=== PATIENT | female | born 1945 | race Caucasian/White ===

== ENCOUNTER → 2017-06-04 | Outpatient (CLI) | payer MEDICARE ==
[2015-12-20 11:30] VITALS: BP 91/45
[~2017-06-04] MED LIST: ATOR20TA PO; CALC500T30 PO; CANA100T PO; CHOL-5 PO; CLOP75TA57 PO; ESCITALOPRAM OX20 MG PO; FURO40TA4 PO; GLIP5TAB10 PO; LACT1CAP6 PO; LEVO50TA5 PO; LIRA0.6P2 SQ; METF-620 PO; OMEP20TA8 PO; SAXA1TBM3 PO; THYR120T PO; ZINC30CA PO
[2017-06-04 11:34] LABS: BILIRUBIN,URINE NEGATIVE (NEG); GLUCOSE,URINE NEGATIVE (NEG); NITRITE,URINE NEGATIVE (NEG); PROTEIN,URINE 30 mg/dL (NEG-TRACE); UROBILINOGEN,URINE 0.2 mg/dL (0.2 mg/dL)
--- NOTE | 2017-06-04 11:48 | EKG ---
[facility] [address] [place] [address] Test Date: 2017-06-04 Test Time: 11:51:00 Pat Name: DENI BURTON Department: Room: Gender: F Commercial Administrator: DEVAN : 1945 Requested By: CYNTHIA HODGE Order Number: [id number] Reading MD: Measurements Intervals [place] Rate: 75 P: 90 HI: 212 QRS: 88 QRSD: 72 T: 65 QT: 436 QTc: 490 Interpretive Statements SINUS RHYTHM QRS(T) CONTOUR ABNORMALITY CONSIDER ANTEROLATERAL MYOCARDIAL DAMAGE CONSIDER INFERIOR MYOCARDIAL DAMAGE PROLONGED QT POSSIBLY ABNORMAL ECG RI6.01 Compared to ECG 12/20/2015 09:30:52 Prolonged QT interval now present First degree AV block no longer present Myocardial infarct finding no longer present
[2017-06-04 11:55] LABS: BACTERIA,URINE FEW /HPF (0-FEW); RBC,URINE 0 /HPF (0-2); SQUAMOUS EPITHELIAL CELL,UR MOD /LPF
[2017-06-04 12:36] LABS: BASO % 1 % (0-3); EOS % 3 % (0-3); HEMATOCRIT 35.4 % (36.0-47.0); HEMOGLOBIN 12.2 g/dL (12.0-15.5); LYMPH # 2.9 x10^3/uL (1.0-4.8); LYMPH % 31 % (24-48); MEAN CORPUSCULAR HEMOGLOBIN 31 pg (25-35); MEAN CORPUSCULAR HGB CONC 34 g/dL (31-37); MEAN CORPUSCULAR VOLUME 89 fL (79-100); MONO % 7 % (0-9); NEUT % 59 % (31-73); PLATELET COUNT 248 x10^3/uL (140-400); RED BLOOD COUNT 3.99 x10^6/uL (3.50-5.40); RED CELL DISTRIBUTION WIDTH 13.5 % (11.5-14.5); WHITE BLOOD COUNT 9.4 x10^3/uL (4.0-11.0)
[2017-06-04 12:42] LABS: INR 1.1 (0.8-1.1); PROTHROMBIN TIME PATIENT 13.2 SEC (11.7-14.0)
[2017-06-04 12:43] LABS: CALCIUM 8.8 mg/dL (8.5-10.1); CREATININE 0.8 mg/dL (0.6-1.0); GFR 70.7; POTASSIUM 3.5 mmol/L (3.5-5.1)
--- NOTE | 2017-06-04 13:28 | RAD ---
Indication preop. Anticipated orthopedic surgery later this month. Protocol study. PA and lateral views of the chest were obtained and are compared to an examination 01/19/2015. Heart size is unchanged. There is no gross congestive heart failure. There is no focal infiltrate. Significant pleural fluid is not seen. There is no pneumothorax. There has not been a significant change when compared to the previous exam. IMPRESSION: No acute or focal process seen in the chest. No significant change
== END | disposition home or self-care (01) ==
LOC: SURGPAT 10:53
PROVIDERS: ATTEND Orthopaedic Surgery
DX: Z01.818 Encounter for other preprocedural examination (principal); I44.0 Atrioventricular block, first degree; R94.31 Abnormal electrocardiogram [ECG] [EKG]
CPT/HCPCS: 36415; 71020; 80048; 81001; 82040; 85027; 85610; 85730; 87641; 93005

== ENCOUNTER → 2017-06-14 | Outpatient (CLI) | payer MEDICARE ==
[2015-12-20 11:30] VITALS: BP 91/45
[~2017-06-14] MED LIST changes: +REGADENOSON 0.4 MG/5 ML DISP.SYRIN. IV ONE
--- NOTE | 2017-06-14 10:59 | CARD ---
APPROVED REPORT EXAM: Two-dimensional and M-mode echocardiogram with Doppler and color Doppler. Other Information Quality : GoodHR: 80bpm Rhythm : NSR INDICATION Pre-Op Cardiac Disease: CAD RISK FACTORS Obesity Family History Diabetes 2D DIMENSIONS RVDd3.1 (2.9-3.5cm)Left Atrium(2D)2.4 (1.6-4.0cm) IVSd1.0 (0.7-1.1cm)Aortic Root(2D)2.3 (2.0-3.7cm) LVDd4.4 (3.9-5.9cm)LVOT Diameter2.1 (1.8-2.4cm) PWd1.0 (0.7-1.1cm)LVDs2.9 (2.5-4.0cm) FS (%) 34.4 %SV56.3 ml LVEF(%)63.7 (>50%) Aortic Valve AoV Peak Javi.197.5cm/sAoV VTI44.1cm AO Peak GR.15.6mmHgLVOT Peak Javi.109.4cm/s AO Mean GR.8mmHgAVA (VMAX)1.88cm2 Mitral Valve MV E Dygrsfvk43.3cm/sMV E Peak Gr.5mmHg MV DECEL QCMJ978piGY A Qqrcycag19.8cm/s MV E Mean Gr.2mmHgE/A Ratio0.8 MV A Piivavjv645fd Pulmonary Valve PV Peak Ncamgjiq864.4cm/s Tricuspid Valve TR P. Actjuvua862ol/sTR Peak Gr.10mmHg Pulmonary Vein S1 Voxaftrj67.5cm/sD2 Mnigatql32.3cm/s PVa qzewenod18uzyf LEFT VENTRICLE The left ventricle is normal size. There is normal left ventricular wall thickness. The left ventricu lar systolic function is normal. The Ejection Fraction is 65-70%. There is normal LV segmental wall m otion. Transmitral Doppler flow pattern is Grade I-abnormal relaxation pattern. RIGHT VENTRICLE The right ventricle is normal size. There is normal right ventricular wall thickness. The right ventr icular systolic function is normal. ATRIA The left atrium size is normal. The right atrium size is normal. The interatrial septum is intact wit h no evidence for an atrial septal defect or patent foramen ovale as noted on 2-D or Doppler imaging. AORTIC VALVE The aortic valve is not well visualized but appears moderately calcified and opens adequately. Dopple r and Color Flow revealed mild aortic regurgitation. There is no significant aortic valvular stenosis . MITRAL VALVE Mitral annular calcification is mild. The mitral valve leaflets are thickened. There is no evidence o f mitral valve prolapse. There is no mitral valve stenosis. Doppler and Color Flow revealed no mitral valve regurgitation noted. TRICUSPID VALVE The tricuspid valve is normal in structure and function. Doppler and Color Flow revealed trace tricus pid regurgitation. There is no tricuspid valve stenosis. GREAT VESSELS The aortic root is normal in size. The ascending aorta is normal in size. The pulmonary artery is nor mal. The IVC is normal in size and collapses >50% with inspiration. PERICARDIAL EFFUSION There is no evidence of significant pericardial effusion. Critical Notification Critical Value: No <Conclusion> The left ventricular systolic function is normal. The Ejection Fraction is 65-70%. There is normal LV segmental wall motion. Transmitral Doppler flow pattern is Grade I-abnormal relaxation pattern. Mild aortic regurgitation. Trace tricuspid regurgitation. There is no evidence of significant pericardial effusion.
--- NOTE | 2017-06-14 15:20 | RAD ---
APPROVED REPORT Test Type: Pharmacological Stress Nurse/Tech: Elysia Flowers R.N. Test Indications: pre-op for knee replacement Cardiac History: CAD, stent x1 Medications: See Electronic Medical Record Medical History: See Electronic Medical Record Resting ECG: SR w 1st degree AVB Resting Heart Rate: 83 bpm Resting Blood Pressure: 116/61mmHg Pretest Chest Pain: No chest pain Nurse/Tech Notes S1S2, lungs CTA Consent: The procedure was explained to the patient in lay terms. Informed consent was witnessed. Reji eout was entered into [employer]. History and Stress Test performed by TYLER Santana Pharm. Details Pharmacologic stress testing was performed using 0.4mg per 5ml of regadenoson given intravenously ove r 7-10 seconds. Stress Symptoms dyspnea and queasy both of which resolved by the end of recovery period POST EXERCISE Reason for Termination: Infusion complete Max HR: 102 bpm Max Blood Pressure: 119/56mmHg Blood Pressure response to exercise: Normal blood pressure response during stress. Heart Rate response to exercise: wnl Chest Pain: No. Arrhythmia: No. ST Change: No. INTERPRETATION Stress EKG Conclusion: Baseline EKG showed sinus rhythm. No ischemic changes at peak stress. No arr hythmias. Imaging Protocol IMAGE PROTOCOL: Rest Tc-99m/stress Tc-99m 1 day Rest: Stress: Viability: Radiopharm.Tc99m SdhcvzirrMr84x Sestamibi Mhyx25oFb 34mCi Duration 17min. 12min. Img Date 06/14/2017 06/14/2017 Inj-Img Ewrk40biy. 60min. Rest Admin Site:IV - Right AntecubitalAdministrator:RT Brent (R)(N) Stress Admin Site: IV - Right AntecubitalAdministrator: TYLER Santana STRESS DATA End Diast. Vol.39.0mlAv. Heart Rate94.0bpm End Syst. Vol.2.0mlCO Index BSA0.0L/min Myocardial Mass88.0gEject. Addkwfzs95.0% Stress Rates Pk. Fill Rate2.49EDV/secLVtime Pk. Fill 200.03msec Pk. Empty Rate7.38ESV/secLVtime Pk. Lsayq426.65msec 1/3 Pk. Fill0.24EDV/sec Stress Scores Regional WT1.00Summed WT5.00 Regional WM0.00Summed WM0.00 Study quality was good. Left Ventricular size was Normal at Rest and Stress. Lung uptake was Normal. Left Ventricular ejection fraction is >80%. The rest and stress images show normal perfusion, normal contraction and thickening. LV Perf. Quant 17 Seg. SSS1.00 17 Seg. SRS0.00 17 Seg. SDS1.00 Stress Defect Extent (% LAD)0.00Rest Defect Extent (% LAD)0.00Rev. Defect Extent (% LAD)0.00 Stress Defect Extent (% LCX) 0.00Rest Defect Extent (% LCX)0.00Rev. Defect Extent (% LCX)0.00 Stress Defect Extent (% RCA)0.00Rest Defect Extent (% RCA)0.00Rev. Defect Extent (% RCA)0.00 Stress Defect Extent (% TERESA)0.00Rest Defect Extent (% TERESA)0.00Rev. Defect Extent (% TERESA)0.00 Conclusion 1. Regadenoson cardioisotope stress test did not show any evidence of ischemia or infarct. 2. Normal left ventricular systolic function with ejection fraction calculated at >80%. 3. Low risk for cardiac events.
== END | disposition home or self-care (01) ==
LOC: ECHO 07:48
PROVIDERS: ATTEND Internal Medicine Cardiovascular Disease
DX: Z01.818 Encounter for other preprocedural examination (principal); I25.10 Atherosclerotic heart disease of native coronary artery without angina pectoris; I35.1 Nonrheumatic aortic (valve) insufficiency
CPT/HCPCS: 78452; 93017; 93306; 96374; 96375; 96376; A9500; J2785

== ENCOUNTER 2017-06-26 07:00 | Inpatient (IN) | payer MEDICARE ==
--- NOTE | 2017-06-25 11:55 | PDOC1 ---
History and Physical Date of Admission Date of Admission DATE: 06/26/17 Identification/Chief Complaint Chief Complaint left knee osteoarthritis pain Problems: Source Source: Chart review History of Present Illness History of Present Illness The patient is a 72 year old female who has left knee pain. She had a right total knee arthroplasty on 06.17.13. She states that this is doing very well. However, the patient states that her left knee is very painful and gives out at random times. She had a left total knee arthroplasty scheduled in 2014 but had to cancel due to high blood sugar. This is now well controlled per a recent A1C. She states that she has to buy hypoallergenic earrings, as her ears swell with normal earrings. Past Medical History Cardiovascular: CHF Endocrine: Diabetes Past Surgical History Past Surgical History: Total knee replacement (right - 2013) Family History Family History: Diabetes Social History Smoke: No ALCOHOL: none Drugs: None Current Medications Current Medications Active Scripts Active Reported Calcium (Calcium Carbonate) 500 Mg Tablet 500 Mg PO Zinc (Zinc Gluconate-Zinc Picolinate) 30 Mg Capsule 30 Mg PO Victoza 3-Jarvis (Liraglutide) 0.6 Mg/0.1 Ml Pen.injctr 0.6 Mg SQ DAILY Invokana (Canagliflozin) 100 Mg Tablet 100 Mg PO DAILY Levothyroxine Sodium 50 Mcg Tablet 1 Tab PO DAILY Kombiglyze Xr 5-1,000 Mg Tab (Saxagliptin Hcl/Metformin Hcl) 1 Each Tbmp.24hr 1 Tab PO DAILYWSUP next dose 12/23 Plavix (Clopidogrel Bisulfate) 75 Mg Tablet 75 Mg PO DAILY Vitamin D3 (Cholecalciferol (Vitamin D3)) 10,000 Unit Tablet 5,000 Unit PO DAILY Glipizide 5 Mg Tablet 1 Tab PO DAILY Metformin Hcl 1,000 Mg Tablet 1,000 Mg PO BID next dose Sun evening dose 12/22 Allergies Allergies: Coded Allergies: Sulfa (Sulfonamide Antibiotics) (Verified Allergy, Intermediate, Hives, ) itching Physical Exam General: Alert, Oriented X3, Cooperative, No acute distress HEENT: Atraumatic, EOMI Lungs: Normal air movement Heart: RRR Abdomen: Soft Extremities: No clubbing, No cyanosis, Normal pulses, No tenderness/swelling ( LEFT KNEE: mildly antalgic gait. No masses. No detectable effusion. Tenderness on the medial and lateral joint lines. Range of motion is 3-115 degrees. There is crepitus with range of motion, and pain at the extremes of motion. The knee is stable to varus and valgus stress without subluxation or laxity. Muscle strength is normal (5/5) for quadriceps and hamstrings, and muscle tone is normal. The skin is normal with no scars, rashes, lesions or ulcers. Light touch sensation is intact. No edema and no varicosities. Dorsalis pedis pulse is intact and capillary refill is normalRIGHT KNEE: shows normal alignment, no masses and no effusion. No tenderness to palpation. Range of motion is 0-120 degrees, with typical total knee crepitus but no pain at the extremes of motion. The knee is stable to varus and valgus stress without subluxation or laxity. Muscle strength is normal (5/5) for quadriceps and hamstrings, and muscle tone is normal. The extensor mechanism is intact. The skin shows a well- healed midline scar from total knee arthroplasty. No drainage lesions or ulcers. Light touch sensation is intact. No edema and no varicosities. Dorsalis pedis pulse is intact and capillary refill is normal.) Skin: No rashes, No breakdown, No significant lesion Neuro: Normal speech, Sensation intact Psych/Mental Status: Mental status NL, Mood NL Images Images IMAGING REPORT Joint survey, hips knees and ankles Clinical information: Preoperative for total knee arthroplasty Comparison: None. Findings Bones: The angle between the right hip-ankle mechanical axis and the femoral shaft is 5. The angle between the left hip-ankle mechanical axis and the femoral shaft is 5 . The mechanical axis crosses in the center of the right prosthetic knee, indicating normal mechanical alignment. The mechanical axis crosses in the center to slightly medial in the left knee, indicating trace varus mechanical alignment of the left knee. Joints: There is narrowing of the left knee joint medially. The right knee joint shows a total knee arthroplasty in good position. The hips and ankles show minimal degenerative changes. Soft tissue: Normal. Impression: Trace varus alignment of the left knee. The difference between the mechanical axis and femoral shaft anatomic axis is 5 bilaterally. Dictated and Signed Using Voice Recognition Software Chadwick Rubi MD VTE Prophylaxis Ordered VTE Prophylaxis Devices: Yes VTE Pharmacological Prophylaxi: Yes Assessment/Plan Assessment/Plan Left knee osteoarthritis pain. Dr. Rubi discussed the potential risks of infection, neurovascular injury, bleeding, blood clots, need for revision surgery, or other potential surgical or anesthetic complications. She states that she does have a metal allergy. She would like to go forward with a left total knee arthroplasty. She will followup 10-14 days after surgery. RODDY FARRELL Jun 25, 2017 11:55
[2017-06-26] VITALS (8 sets, daily range): BP systolic 77–117; BP diastolic 39–71
[~2017-06-26] VITALS: Ht 149.9 cm; Wt 75.3 kg
[~2017-06-26 07:00] MED LIST changes: +BACITRACIN 50,000 UNIT in IV NORMAL SALINE 1000ML BAG 1,000 ML IRR ONE; +HYDROcodone/APAP 7.5/325MG 1 TAB TABLET PO PRN; +HYDROmorphone 2 MG/ML VIAL IV PRN; +IV RINGERS,LACTATED 1000ML 1,000 ML IV SCH; +LIDOCAINE 1% 1 ML SYRINGE. ID PRN; +MELOXICAM 7.5 MG TABLET PO PRN; +MORPHINE SULFATE 2 MG/ML DISP.SYRIN. IV PRN; +ONDANSETRON PF 4 MG/2 ML VIAL. IV PRN; +PROCHLORPERAZINE 10 MG/2 ML VIAL. IV PRN; -REGADENOSON 0.4 MG/5 ML DISP.SYRIN. IV ONE; +TRANEXAMIC ACID 1,000 MG in IV NS 50ML -- 1ST BAG INJ ONE; +fentaNYL PF VIAL 100 MCG/2 ML VIAL IV PRN
[2017-06-26] MEDS ORDERED: TRANEXAMIC ACID 1,000 MG in IV NS 50ML -- 2ND BAG INJ ONE (08:00)
[2017-06-26] MEDS ORDERED: fentaNYL PF VIAL 250 MCG/5 ML VIAL ONE (08:51)
[2017-06-26] MEDS ORDERED: PROPOFOL 20 ML IV ONE (08:52)
[2017-06-26] MEDS ORDERED: ONDANSETRON PF 4 MG/2 ML VIAL. ONE (08:52)
[2017-06-26] MEDS ORDERED: LIDOCAINE 2% PF Vial for OR 5 ML VIAL. ONE (08:52)
[2017-06-26] MEDS ORDERED: SEVOFLURANE > 120 MINUTES. IH ONE (08:52)
[2017-06-26] MEDS ORDERED: DEXAMETHASONE SOD PHOS 20 MG/5 ML VIAL. ONE (08:52)
[2017-06-26] MEDS ORDERED: VANCOMYCIN 1 GM VIAL. ONE (09:00)
[2017-06-26] MEDS ORDERED: LABETALOL 20 MG/4 ML DISP.SYRIN. ONE (10:21)
[2017-06-26] MEDS ORDERED: PROCHLORPERAZINE 10 MG/2 ML VIAL. ONE (11:51)
[2017-06-26] MEDS ORDERED: fentaNYL PF VIAL 100 MCG/2 ML VIAL ONE (11:51)
--- NOTE | 2017-06-26 12:07 | PDOC4 ---
Operative Note Operative Note Date of Procedure: June 26, 2017 Pre-Op Diagnosis: Osteoarthritis left knee Post-Op Diagnosis: Osteoarthritis left knee Procedure: left total knee arthroplasty Surgeon: Cynthia Rubi MD Facer Operator: Chrissy Dale PA-C, Jan Reid PA-C Anesthesia: General EBL: 100 mL Specimens Obtained: left knee bone and soft tissue Complications: none Implant Company: [employer] Drains: Hemovac plus pain catheter Tourniquet time: 54 Minutes Tourniquet Pressure: 350 mm Hg Indications for Procedure: Arthritis pain unrelieved by nonoperative management. Findings: moderate osteoarthritis with full thickness cartilage loss at the medial and patellofemoral joints. Implants used: Size 2 left bicruciate stabilized Journey II BCS cobalt chrome femoral component, size 2 left Journey nonporous tibial baseplate, size 1 -2 10 mm left Journey II BCS XLPE articular insert, standard 23 mm Journey BCS Biconvex patellar component Procedure in Detail: The patient was identified in the preoperative holding area, and the correct left lower extremity was marked by me. The patient was taken to the operating room where the patient was anesthetized by the Department of Anesthesia. Preoperative antibiotics were given intravenously. Tranexamic acid 1 g was given intravenously for intraoperative hemostasis. A "time-out" procedure was performed. The patient was positioned supine on the operative table with a tourniquet on the upper left thigh. The left lower limb was thoroughly prepped and draped in sterile fashion. An impervious stockinet and adhesive drape were used such that the skin was entirely covered. An Em leg damian was used. The operating team wore personal exhaust-ventilated hoods. The tourniquet was inflated to 350 Hg. A midline skin incision was made with a scalpel using the patella and tibial tubercle as landmarks. Electrocautery was used for hemostasis. My orthodontist assistant used rake retractors. A medial parapatellar arthrotomy incision was used with extension into the distal quadriceps tendon. The patella was retracted laterally and Hohmann retractors were now used by my orthodontist assistant. Excess synovium, the menisci, and the cruciate ligaments were resected sharply. The patella was assessed and excess synovium and osteophytes around the patellar articulation were removed. The patella was measured with a caliper, and then reamed for a biconvex patella insert. Periarticular injection was used in the suprapatellar pouch and distal quadriceps muscle. Whitesides's line was assessed on the femur. An intra-medullary 5 degree cutting guide was pinned to the femur, and a distal femoral cut was made with an oscillating saw. No additional distal femoral resection was required.My orthodontist assistant held Hohmann retractors and an [facility] retractor to protect the medial and lateral collateral ligaments, the patellar tendon, the skin and the other soft tissues. An anterior referencing guide was applied with external rotation of 3 to match Whitesides line. A 5-in-1 Journey II cutting guide was then applied and pinned to the femur. The posterior, anterior, and all chamfer cuts were made with the oscillating saw. An extramedullary guide was pinned to the tibia and rotational alignment and the planned resection thickness assessed. An external alignment yadi was used to verify the planned cut in the varus-valgus plane and regarding posterior slope referencing the tibial tubercle, the tibial shaft, the ankle joint, and the second metatarsal. The upper tibia was cut made with an oscillating saw. My orthodontist assistant held Hohmann retractors and a posterior cruciate ligament retractor to protect the medial and lateral collateral ligaments, the patellar tendon, the skin, the peroneal nerve and the other soft tissues. The upper tibia was sized with a trial baseplate. The posterior compartment was cleared of osteophytes and loose bodies, and posterior capsule released. Shanel-articular injection was used in the posterior compartment. The box cut for a posterior stabilized component was made. A preliminary reduction was performed with a trial femur, trial tibial baseplate and trial polyethylene. Soft-tissue balancing was now performed, and extension and rotation of the alignments was checked using a guide yadi in the tibial trial and a guide pin in the femur. No additional releases were required. The stability was assessed using different thicknesses of tibial articular surface to find satisfactory stability and good range of motion. The rotation of the tibial component was marked on the upper tibia. Final trial reduction was now performed verifying patella tracking and tibiofemoral stability and alignment. The tibia preparation was completed with a drill, saw, and fin punch at the previously noted rotation. The final implants were verified and opened. Outer gloves were changed by the operating team. The bone cuts were washed thoroughly with the Inside Secure InterPulse device and dried. Two packages of Berry + Nephew Rally HV bone cement were mixed in powdered form with 1 gm of Vancomycin , and then vacuum-mixed with the monomer, and placed into a cement gun. The cut surfaces of the bone were thoroughly dried with Jacobs-tip suction and with laparotomy sponges for cement interdigitation. The final components were cemented into place. The knee was kept at full extension while the cement hardened, and excess cement was removed. Tranexamic acid 1 g was redosed intravenously for additional intraoperative hemostasis. A final periarticular injection was used for pain relief. The tourniquet was released, and electrocautery was used for hemostasis. A final check of mfthh-yf-cqlrcc and stability was made, and the polyethylene implant final size was chosen. The polyethylene implant was secured to the tibial baseplate, and the knee was reduced a final time. Thorough irrigation was used. Hemovac and pain catheter were used.The arthrotomy was closed with interrupted trmmuv-er-dswem #1 PDS suture. The arthrotomy incision was then run with #1 STRATAFIX Symmetric PDS Plus Knotless suture. The subcutaneous tissues were closed with #2-0 Vicryl by my orthodontist assistant. The skin was approximated with pierce by my orthodontist assistant. A Prevena dressing was used. Needle and sponge counts were correct. CYNTHIA RUBI MD Jun 26, 2017 12:07
[2017-06-26] MEDS ORDERED: oxyCODONE/APAP 7.5/325 1 TAB TABLET PO PRN (12:15)
[2017-06-26] MEDS ORDERED: MORPHINE SULFATE 2 MG/ML DISP.SYRIN. IV PRN (12:15)
[2017-06-26] MEDS ORDERED: PROCHLORPERAZINE 10 MG/2 ML VIAL. IV PRN (12:15)
[2017-06-26] MEDS ORDERED: 0.9 % SODIUM CHLORIDE 10 ML DISP.SYRIN. IV PRN (12:15)
[2017-06-26] MEDS ORDERED: fentaNYL PF VIAL 100 MCG/2 ML VIAL IV PRN ×2 (12:15)
[2017-06-26] MEDS ORDERED: oxyCODONE/APAP 5/325 1 TAB TABLET PO PRN (12:15)
[2017-06-26] MEDS ORDERED: PROCHLORPERAZINE 5 MG TABLET. PO PRN (12:15)
[2017-06-26] MEDS ORDERED: CALCIUM CARBONATE 500 MG TAB.CHEW PO PRN (12:15)
[2017-06-26] MEDS ORDERED: DEXTROSE 50% 25 GM / 50ML DISP.SYRIN. IV PRN ×3 (12:15→21:30)
[2017-06-26] MEDS ORDERED: MORPHINE SULFATE 4 MG/ML DISP.SYRIN. IV PRN ×2 (12:15)
[2017-06-26] MEDS ORDERED: METOCLOPRAMIDE HCL 10 MG/2 ML VIAL. IV PRN (12:15)
[2017-06-26] MEDS ORDERED: traMADol 50 MG TABLET PO PRN (12:15)
[2017-06-26] MEDS ORDERED: HYDROcodone/APAP 10/325 1 TAB TABLET PO PRN (12:15)
[2017-06-26] MEDS ORDERED: ZOLPIDEM 5 MG TABLET. PO PRN (12:15)
[2017-06-26] MEDS ORDERED: MORPHINE SULFATE 10 MG/ML VIAL. IV PRN (12:15)
[2017-06-26] MEDS ORDERED: diphenhydrAMINE 50 MG/ML VIAL IV PRN (12:15)
[2017-06-26] MEDS ORDERED: ACETAMINOPHEN 325 MG TABLET. PO PRN (12:15)
--- NOTE | 2017-06-26 12:31 | RAD ---
2 view left knee radiographs 06/26/2017 Clinical history: Post left knee replacement. Portable AP and lateral digital radiographs of the left knee were obtained. The patient is status post left TKA. The prosthetic components are intact. A surgical drain is noted in place. Impression: Status post left TKA. No acute osseous abnormality is seen.
[2017-06-26] MEDS ORDERED: INSULIN ASPART 100 UNIT/ML 10ML VIAL. SQ ONE ×2 (12:42→12:45)
[2017-06-26] MEDS: FERROUS SULFATE 325 MG TABLET. PO SCH (18:26)
[2017-06-26] MEDS: IV DEXTROSE 5 %-0.45 % NACL 1,000 ML IV SCH (19:53)
[2017-06-26] MEDS: HYDROcodone/APAP 7.5/325MG 1 TAB TABLET PO PRN (20:51)
[2017-06-26] MEDS: ASPIRIN ENTERIC COATED 325 MG TABLET.DR. PO SCH (20:51)
[2017-06-26] MEDS: CELECOXIB 200 MG CAPSULE. PO SCH (20:54)
[2017-06-26] MEDS ORDERED: INSULIN DETEMIR 300 UNITS/3 ML INSULN.PEN. SQ SCH (21:00)
[2017-06-26] MEDS ORDERED: INSULIN REGULAR VIAL 150 UNIT in 0.9 % SODIUM CHLORIDE 150ML 150 ML IV PRN (21:15)
[2017-06-26] MEDS: INSULIN DETEMIR 300 UNITS/3 ML INSULN.PEN. SQ SCH (21:25)
--- NOTE | 2017-06-27 00:24 | ACF ---
Admission Forms Criteria PAIN MANAGEMENT GR Clinical Indications for Admission to Inpatient Care (Place 'X' for any and all applicable criteria): Hospital admission is needed for appropriate care of the patient because of 1 or more of the following are present (1)(2)(3)(4)(5): [ ]I. Severe pain requiring acute inpatient management as indicated by 1 or more of the following (2)(5)(10): [ ]a) Continuous or frequent (eg, every 2 to 4 hours) parenteral analgesics required [A] [ ]b) Necessity (ie, alternative approaches not effective) for analgesic regimen that can only be performed or initiated in inpatient setting [X]II. Pain causing debilitation to the point of inability to function or be supported at any other level of care [ ]III. Severe side effects from pain medications as indicated by ANY ONE of the following (12)(13)(14)(15): [ ]a) Uncontrollable seizures [ ]b) Cardiac arrhythmias of immediate concern [ ]c) Dehydration that is severe or persistent [ ]d) Vomiting that is severe or persistent [ ]e) Altered mental status that is severe or persistent [ ]f) Obstipation with inadequate GI function to maintain nutrition The original [employer] content created by [employer] has been revised. The portions of the content which have been revised are identified through the use of italic text or in bold, and [facility] has neither reviewed nor approved the modified material. All other unmodified content is copyright [employer]. Please see references footnoted in the original [employer] edition 2016 Admission Criteria Met?: Yes REBECCA SHELTON Jun 27, 2017 00:24
[2017-06-27] MEDS: HYDROcodone/APAP 7.5/325MG 1 TAB TABLET PO PRN (01:38)
[2017-06-27 06:00] VITALS: BP 95/51
[2017-06-27] MEDS ORDERED: MAGNESIUM HYDROXIDE 2,400 MG/30 ML ORAL.SUSP. PO PRN (06:00)
[2017-06-27] MEDS: LEVOTHYROXINE 50 MCG TABLET PO SCH (06:41)
[2017-06-27] MEDS: FERROUS SULFATE 325 MG TABLET. PO SCH ×2 (08:00→17:45)
[2017-06-27] MEDS: ASPIRIN ENTERIC COATED 325 MG TABLET.DR. PO SCH ×2 (08:54→21:30)
[2017-06-27] MEDS: LINAGLIPTIN 5 MG TABLET PO SCH (08:54)
[2017-06-27] MEDS: MULTIVITAMIN with MINERAL TABLET. PO SCH (08:54)
[2017-06-27] MEDS: CALCIUM CARBONATE 500 MG TABLET PO SCH (08:54)
[2017-06-27] MEDS: CELECOXIB 200 MG CAPSULE. PO SCH ×2 (08:54→21:00)
[2017-06-27] MEDS: SENNOSIDES/DOCUSATE 8.6/50MG TABLET. PO SCH (08:54)
[2017-06-27] MEDS: glipiZIDE 5 MG TABLET PO SCH (08:54)
[2017-06-27] MEDS: CHOLECALCIFEROL (VITAMIN D3) 5,000 UNIT CAPSULE PO SCH (08:55)
[2017-06-27] MEDS: traMADol 50 MG TABLET PO PRN ×3 (08:58→21:31)
[2017-06-27] MEDS ORDERED: NON FORMULARY ITEM (Liraglutide (Victoza 3-Pak) 0.6 MG) SQ SCH (09:00)
[2017-06-27] MEDS ORDERED: NON FORMULARY ITEM (Canagliflozin (Invokana) 100 MG) PO SCH (09:00)
[2017-06-27] MEDS: INSULIN ASPART 300 UNITS/3 ML INSULN.PEN SQ SCH ×3 (09:15→17:00)
[2017-06-27 09:34] LABS: HEMATOCRIT 29.1 % (36.0-47.0); RED BLOOD COUNT 3.21 x10^6/uL (3.50-5.40); RED CELL DISTRIBUTION WIDTH 13.2 % (11.5-14.5); WHITE BLOOD COUNT 12.1 x10^3/uL (4.0-11.0)
--- NOTE | 2017-06-27 09:41 | PDOC ---
PROGRESS NOTES Subjective Subjective No complaints. Pain is controlled. Objective Vital Signs Vital Signs Date Time Temp Pulse Resp B/P (MAP) Pulse Ox O2 Delivery O2 Flow Rate FiO2 06/27/17 08:58 Room Air 06/27/17 06:00 98.0 96 20 95/51 (66) 92 2.0 98.0 Physical Exam Dressing dry. Pain catheter and Hemovac in place. Good dorsiflexion and plantarflexion of the foot with no evidence of neurovascular injury or DVT. Calves are soft and non-tender. Negative Homans. Peripheral pulses and light touch sensation intact. Labs Laboratory Tests Test 06/26/17 07:22 06/26/17 07:30 06/26/17 12:12 06/26/17 17:06 Glucose (Fingerstick) 204 mg/dL (70-99) 271 mg/dL (70-99) 341 mg/dL (70-99) Erythrocyte Sedimentation Rate 8 (0-25) Test 06/26/17 20:47 06/27/17 06:38 Glucose (Fingerstick) 423 mg/dL (70-99) 191 mg/dL (70-99) Laboratory Tests Test 06/26/17 12:12 06/26/17 17:06 06/26/17 20:47 06/27/17 06:38 Glucose (Fingerstick) 271 mg/dL (70-99) 341 mg/dL (70-99) 423 mg/dL (70-99) 191 mg/dL (70-99) Imaging Postoperative x-rays reviewed by me, showing satisfactory total knee replacement , with no apparent complications. Assessment Assessment POD #1 left TKA Problems: Plan Plan of Care Continue POC including DVT prophylaxis and physical therapy. Plan for discharge to home on Sunday with outpatient PT at [facility] in [place]. RODDY FARRELL Jun 27, 2017 09:41
[2017-06-27] MEDS: IV DEXTROSE 5 %-0.45 % NACL 1,000 ML IV SCH ×3 (10:00→20:00)
[2017-06-27 11:15] VITALS: BP 106/56
[2017-06-27] MEDS ORDERED: BISACODYL 10 MG SUPP.RECT. PR PRN (16:00)
[2017-06-27] MEDS: CLOPIDOGREL BISULFATE 75 MG TABLET PO SCH (17:45)
[2017-06-27] MEDS ORDERED: GABA-586 PO (18:12)
[2017-06-27] MEDS ORDERED: LEXAPRO20 MG PO (18:12)
[2017-06-27] MEDS ORDERED: CRESTOR40 MG PO (18:12)
[2017-06-27 18:30] VITALS: BP 118/54
[2017-06-28] MEDS: traMADol 50 MG TABLET PO PRN (02:37)
[2017-06-28 06:00] VITALS: BP 109/56
[2017-06-28 06:04] LABS: HEMATOCRIT 30.3 % (36.0-47.0); HEMOGLOBIN 10.1 g/dL (12.0-15.5)
[2017-06-28] MEDS: LEVOTHYROXINE 50 MCG TABLET PO SCH (06:29)
[2017-06-28] MEDS: INSULIN ASPART 300 UNITS/3 ML INSULN.PEN SQ SCH ×3 (08:00→17:00)
[2017-06-28] MEDS: CHOLECALCIFEROL (VITAMIN D3) 5,000 UNIT CAPSULE PO SCH (08:39)
[2017-06-28] MEDS: FERROUS SULFATE 325 MG TABLET. PO SCH ×2 (08:39→17:10)
[2017-06-28] MEDS: CALCIUM CARBONATE 500 MG TABLET PO SCH (08:39)
[2017-06-28] MEDS: ASPIRIN ENTERIC COATED 325 MG TABLET.DR. PO SCH ×2 (08:39→21:00)
[2017-06-28] MEDS: glipiZIDE 5 MG TABLET PO SCH (08:39)
[2017-06-28] MEDS: MULTIVITAMIN with MINERAL TABLET. PO SCH (08:39)
[2017-06-28] MEDS: CLOPIDOGREL BISULFATE 75 MG TABLET PO SCH (08:40)
[2017-06-28] MEDS: SENNOSIDES/DOCUSATE 8.6/50MG TABLET. PO SCH (08:40)
[2017-06-28] MEDS: LINAGLIPTIN 5 MG TABLET PO SCH (08:40)
[2017-06-28] MEDS: HYDROcodone/APAP 7.5/325MG 1 TAB TABLET PO PRN ×2 (08:40→23:27)
--- NOTE | 2017-06-28 13:14 | PDOC ---
PROGRESS NOTES Subjective Subjective Doing well. Only mild pain increase from yesterday. Objective Vital Signs Vital Signs Date Time Temp Pulse Resp B/P (MAP) Pulse Ox O2 Delivery O2 Flow Rate FiO2 06/28/17 08:00 Room Air 06/28/17 06:00 98.0 88 18 109/56 (73) 90 98.0 06/27/17 06:00 2.0 Physical Exam Expected swelling. Pain catheter and Hemovac have been removed. Prevena intact, with with yellow light on canister. Spotty drainage from drain site. Calf soft and nontender with a negative Homans sign. Good dorsiflexion and plantarflexion with no evidence of neurovascular injury. Peripheral pulses and light touch sensation intact. Labs Laboratory Tests Test 06/26/17 17:06 06/26/17 20:47 06/27/17 06:38 06/27/17 09:10 Glucose (Fingerstick) 341 mg/dL (70-99) 423 mg/dL (70-99) 191 mg/dL (70-99) White Blood Count 12.1 x10^3/uL (4.0-11.0) Red Blood Count 3.21 x10^6/uL (3.50-5.40) Hemoglobin 10.0 g/dL (12.0-15.5) Hematocrit 29.1 % (36.0-47.0) Mean Corpuscular Volume 91 fL (79-100) Mean Corpuscular Hemoglobin 31 pg (25-35) Mean Corpuscular Hemoglobin Concent 34 g/dL (31-37) Red Cell Distribution Width 13.2 % (11.5-14.5) Platelet Count 220 x10^3/uL (140-400) Test 06/27/17 11:35 06/27/17 16:34 06/27/17 19:28 06/27/17 20:50 Glucose (Fingerstick) 169 mg/dL (70-99) 67 mg/dL (70-99) 81 mg/dL (70-99) 85 mg/dL (70-99) Test 06/28/17 05:35 06/28/17 06:33 06/28/17 11:40 Hemoglobin 10.1 g/dL (12.0-15.5) Hematocrit 30.3 % (36.0-47.0) Mean Corpuscular Hemoglobin Concent 33 g/dL (31-37) Glucose (Fingerstick) 121 mg/dL (70-99) 121 mg/dL (70-99) Laboratory Tests Test 06/27/17 16:34 06/27/17 19:28 06/27/17 20:50 06/28/17 05:35 Glucose (Fingerstick) 67 mg/dL (70-99) 81 mg/dL (70-99) 85 mg/dL (70-99) Hemoglobin 10.1 g/dL (12.0-15.5) Hematocrit 30.3 % (36.0-47.0) Mean Corpuscular Hemoglobin Concent 33 g/dL (31-37) Test 06/28/17 06:33 06/28/17 11:40 Glucose (Fingerstick) 121 mg/dL (70-99) 121 mg/dL (70-99) Assessment Assessment POD #2 TKA Problems: Plan Plan of Care MEAGHAN Farmer, has contacted wound care to change Prevena wound vac. Continue DVT prophylaxis and physical therapy. Planned discharge tomorrow. Office f/u in 10- 14 days. RODDY FARRELL Jun 28, 2017 13:14
--- NOTE | 2017-06-28 17:28 | PATHOLOGY ---
PATHOLOGY REPORT * * * * * * * * FINAL DIAGNOSIS: Segments of bone and soft tissue, left total knee arthroplasty: - Degenerative arthritis. (JPM:[email or web address]; 06/28/2017) REPORT ELECTRONICALLY SIGNED BY: Rohith Kaiser M.D. DATE/TIME: 06/28/2017 17:27 * * * * * * * * GROSS PATHOLOGY: Received in formalin labeled "Flory Charles, left knee bone and tissue," are multiple segments of bone, including tibial plateau, measuring 8.0 x 8.0 x 3.5 cm in aggregate dimensions admixed with soft tissue; meniscus is present. Eburnation of the articular surfaces is not grossly evident upon extensive sectioning. Sales Service Professional sections of bone and soft tissue are submitted in cassette A1, following decalcification. ([facility]; 06/27/2017) INITIAL CPT CODE(S): A; 60295, 07345 Professional services performed [place] [facility] [place] [address] Technical services performed by [facility] at [address] [place] [address]. SPECIMEN(S) RECEIVED: A.Left knee bone and tissue CLINICAL HISTORY: OA PATIENT: FLORY CHARLES /AGE: 5 1945 (Age: 72) PATIENT #: [id number] ALT CASE #: SPECIMEN COLLECTION DATE: 06/26/2017 SPECIMEN RECEIVED DATE: 06/26/2017 [facility] - [address] [place] [address] - PHONE: [phone] * * * END OF REPORT * * *
[2017-06-28 18:34] VITALS: BP 132/67
[2017-06-28] MEDS: INSULIN DETEMIR 300 UNITS/3 ML INSULN.PEN. SQ SCH (21:00)
[2017-06-29] MEDS: HYDROcodone/APAP 7.5/325MG 1 TAB TABLET PO PRN ×2 (03:29→12:24)
[2017-06-29 06:00] VITALS: BP 127/54
[2017-06-29 06:19] LABS: HEMATOCRIT 30.5 % (36.0-47.0); HEMOGLOBIN 10.1 g/dL (12.0-15.5)
[2017-06-29] MEDS: LEVOTHYROXINE 50 MCG TABLET PO SCH (07:06)
[2017-06-29] MEDS: INSULIN ASPART 300 UNITS/3 ML INSULN.PEN SQ SCH ×2 (08:00→11:39)
[2017-06-29] MEDS: FERROUS SULFATE 325 MG TABLET. PO SCH (08:08)
[2017-06-29] MEDS: CHOLECALCIFEROL (VITAMIN D3) 5,000 UNIT CAPSULE PO SCH (08:08)
[2017-06-29] MEDS: glipiZIDE 5 MG TABLET PO SCH (08:08)
[2017-06-29] MEDS: SENNOSIDES/DOCUSATE 8.6/50MG TABLET. PO SCH (08:08)
[2017-06-29] MEDS: CALCIUM CARBONATE 500 MG TABLET PO SCH (08:08)
[2017-06-29] MEDS: LINAGLIPTIN 5 MG TABLET PO SCH (08:08)
[2017-06-29] MEDS: CLOPIDOGREL BISULFATE 75 MG TABLET PO SCH (08:08)
[2017-06-29] MEDS: MULTIVITAMIN with MINERAL TABLET. PO SCH (08:08)
[2017-06-29] MEDS: ASPIRIN ENTERIC COATED 325 MG TABLET.DR. PO SCH (08:09)
--- NOTE | 2017-06-29 12:25 | PDOC ---
PROGRESS NOTES Subjective Subjective Doing well. Planning for discharge later today after PT. Objective Vital Signs Vital Signs Date Time Temp Pulse Resp B/P (MAP) Pulse Ox O2 Delivery O2 Flow Rate FiO2 06/29/17 06:00 97.0 93 21 127/54 (78) 92 Room Air 97.0 06/28/17 20:04 2.0 Physical Exam Expected swelling. Prevena wound vac intact with a green light on canister. Calf soft and nontender. Negative Homans. Good AROM ankle. Peripheral pulses and light touch sensation intact. Labs Laboratory Tests Test 06/27/17 16:34 06/27/17 19:28 06/27/17 20:50 06/28/17 05:35 Glucose (Fingerstick) 67 mg/dL (70-99) 81 mg/dL (70-99) 85 mg/dL (70-99) Hemoglobin 10.1 g/dL (12.0-15.5) Hematocrit 30.3 % (36.0-47.0) Mean Corpuscular Hemoglobin Concent 33 g/dL (31-37) Test 06/28/17 06:33 06/28/17 11:40 06/28/17 16:29 06/28/17 20:36 Glucose (Fingerstick) 121 mg/dL (70-99) 121 mg/dL (70-99) 176 mg/dL (70-99) 224 mg/dL (70-99) Test 06/29/17 04:25 06/29/17 06:59 06/29/17 11:15 Hemoglobin 10.1 g/dL (12.0-15.5) Hematocrit 30.5 % (36.0-47.0) Mean Corpuscular Hemoglobin Concent 33 g/dL (31-37) Glucose (Fingerstick) 88 mg/dL (70-99) 67 mg/dL (70-99) Laboratory Tests Test 06/28/17 16:29 06/28/17 20:36 06/29/17 04:25 06/29/17 06:59 Glucose (Fingerstick) 176 mg/dL (70-99) 224 mg/dL (70-99) 88 mg/dL (70-99) Hemoglobin 10.1 g/dL (12.0-15.5) Hematocrit 30.5 % (36.0-47.0) Mean Corpuscular Hemoglobin Concent 33 g/dL (31-37) Test 06/29/17 11:15 Glucose (Fingerstick) 67 mg/dL (70-99) Assessment Assessment POD 3 TKA Problems: Plan Plan of Care Discharge later today, to home. Continue DVT prophylaxis and physical therapy. F/U 10-14 days. RODDY FARRELL Jun 29, 2017 12:25
--- NOTE | 2017-06-29 12:28 | PDOC3 ---
Discharge Summary Visit Information Date of Admission: Jun 26, 2017 Date of Discharge: Jun 29, 2017 Admitting Diagnosis: left knee osteoarthritis pain Brief Hospital Course Allergies Allergies Coded Allergies Type Severity Reaction Last Updated Verified Sulfa (Sulfonamide Antibiotics) Allergy Intermediate Hives 01/19/15 Yes Vital Signs Vital Signs Date Time Temp Pulse Resp B/P (MAP) Pulse Ox O2 Delivery O2 Flow Rate FiO2 06/29/17 06:00 97.0 93 21 127/54 (78) 92 Room Air 97.0 06/28/17 20:04 2.0 Lab Results Laboratory Tests Test 06/27/17 16:34 06/27/17 19:28 06/27/17 20:50 06/28/17 05:35 Glucose (Fingerstick) 67 mg/dL (70-99) 81 mg/dL (70-99) 85 mg/dL (70-99) Hemoglobin 10.1 g/dL (12.0-15.5) Hematocrit 30.3 % (36.0-47.0) Mean Corpuscular Hemoglobin Concent 33 g/dL (31-37) Test 06/28/17 06:33 06/28/17 11:40 06/28/17 16:29 06/28/17 20:36 Glucose (Fingerstick) 121 mg/dL (70-99) 121 mg/dL (70-99) 176 mg/dL (70-99) 224 mg/dL (70-99) Test 06/29/17 04:25 06/29/17 06:59 06/29/17 11:15 Hemoglobin 10.1 g/dL (12.0-15.5) Hematocrit 30.5 % (36.0-47.0) Mean Corpuscular Hemoglobin Concent 33 g/dL (31-37) Glucose (Fingerstick) 88 mg/dL (70-99) 67 mg/dL (70-99) Laboratory Tests Test 06/28/17 16:29 06/28/17 20:36 06/29/17 04:25 06/29/17 06:59 Glucose (Fingerstick) 176 mg/dL (70-99) 224 mg/dL (70-99) 88 mg/dL (70-99) Hemoglobin 10.1 g/dL (12.0-15.5) Hematocrit 30.5 % (36.0-47.0) Mean Corpuscular Hemoglobin Concent 33 g/dL (31-37) Test 06/29/17 11:15 Glucose (Fingerstick) 67 mg/dL (70-99) Brief Hospital Course 72 year old female who presented with knee osteoarthritis, for elective total knee arthroplasty. The patient underwent total knee arthroplasty under general anesthesia the day of admission. Perioperative antibiotics and DVT prophylaxis were used. Postoperatively physical therapy and case management were consulted. The patient progressed and is stable for discharge. Discharge Information Condition at Discharge: Stable Follow Up: Weeks (2) Disposition/Orders: D/C to Home Scheduled Cholecalciferol (Vitamin D3) (Vitamin D3), 5,000 UNIT PO DAILY, (Reported) Clopidogrel Bisulfate (Plavix), 75 MG PO DAILY, (Reported) Escitalopram Oxalate (Lexapro), 20 MG PO DAILY, (Reported) Gabapentin (Gabapentin), 300 MG PO TID, (Reported) Glipizide (Glipizide), 1 TAB PO DAILY, (Reported) Levothyroxine Sodium (Levothyroxine Sodium), 1 TAB PO DAILY, (Reported) Metformin Hcl (Metformin Hcl), 1,000 MG PO BID, (Reported) Rosuvastatin Calcium (Crestor), 40 MG PO HS, (Reported) Miscellaneous Medications Calcium Carbonate (Calcium), 500 MG PO, (Reported) Zinc Gluconate-Zinc Picolinate (Zinc), 30 MG PO, (Reported) Discontinued Medications Canagliflozin (Invokana), 100 MG PO DAILY, (Reported) Liraglutide (Victoza 3-Jarvis), 0.6 MG SQ DAILY, (Reported) Saxagliptin Hcl/Metformin Hcl (Kombiglyze Xr 5-1,000 Mg Tab), 1 TAB PO DAILYWSUP , (Reported) Patient Instructions Patient Instructions Patient Instructions Continue to WBAT with walker. Keep dressing dry and intact. F/U with [facility] in 10-14 days. Call for appointment. Physical therapy for TKA Continue DVT prophylaxis with ASA 325mg twice daily. RODDY FARRELL Jun 29, 2017 12:28
[2017-06-29 14:30] VITALS: BP 124/64
== END 2017-06-29 16:28 | disposition home or self-care (01) | DRG 470 ==
LOC: OPSVCIP 07:00 → 4 SOUTHEST 13:15
PROVIDERS: ADMIT Orthopaedic Surgery; ATTEND Orthopaedic Surgery
PROC: 0SRD0J9 Replacement of Left Knee Joint with Synthetic Substitute, Cemented, Open Approach (ICD-10-PCS; principal; 2017-06-26 09:10)
DX: M17.12 Unilateral primary osteoarthritis, left knee (principal); I50.9 Heart failure, unspecified; E11.9 Type 2 diabetes mellitus without complications; Z96.651 Presence of right artificial knee joint; Z88.2 Allergy status to sulfonamides; Z83.3 Family history of diabetes mellitus
CPT/HCPCS: 36415; 73560; 82962; 85014; 85018; 85027; 85651; 86850; 86900; 86901; 88305; 88311; J0171; J0690; J1100; J1815; J1885; J2270; J2405; J2704; J2795; J3010; J3370; J3490; J7030; J7120; 97116; 97150; 97530; 97535; C1769; J2001

== ENCOUNTER 2017-07-25 11:07 | Inpatient (IN) | payer MEDICARE ==
[~2017-07-25] VITALS: Ht 149.9 cm; Wt 69.4 kg
[~2017-07-25 11:07] MED LIST changes: -BACITRACIN 50,000 UNIT in IV NORMAL SALINE 1000ML BAG 1,000 ML IRR ONE; +CRESTOR40 MG PO; +GABA-586 PO; -HYDROcodone/APAP 7.5/325MG 1 TAB TABLET PO PRN; -HYDROmorphone 2 MG/ML VIAL IV PRN; -IV RINGERS,LACTATED 1000ML 1,000 ML IV SCH; +LEXAPRO20 MG PO; -LIDOCAINE 1% 1 ML SYRINGE. ID PRN; -MELOXICAM 7.5 MG TABLET PO PRN; -MORPHINE SULFATE 2 MG/ML DISP.SYRIN. IV PRN; -ONDANSETRON PF 4 MG/2 ML VIAL. IV PRN; -PROCHLORPERAZINE 10 MG/2 ML VIAL. IV PRN; -TRANEXAMIC ACID 1,000 MG in IV NS 50ML -- 1ST BAG INJ ONE; -fentaNYL PF VIAL 100 MCG/2 ML VIAL IV PRN
[2017-07-25] MEDS ORDERED: PIPERACILLIN/TAZOBACTAM 4.5 GM in IV NORMAL SALINE 100ML 100 ML IV ONE (12:00)
[2017-07-25] MEDS ORDERED: HYDROcodone/APAP 5/325MG 1 TAB TABLET PO ONE (12:00)
--- NOTE | 2017-07-25 12:25 | PHYS DOC ---
Past Medical History Past Medical History: Diabetes-Type II Past Surgical History: Knee Replacement Additional Past Surgical Histo: Lt femur Alcohol Use: None Drug Use: None Adult General Chief Complaint Chief Complaint: SUTURE/STAPLE REMOVAL [facility] HPI Patient is a 72 year old female with a history of diabetes presents to the ED complaining of left knee pain x 4 days. States she had a knee replacement surgery a week and a half ago. States she followed up with the nurses and Dr. Rubi's office for staple removal. States some of the pierce were removed but one was stuck in there. States since then the knee has gotten swollen and red. Describes the pain as sharp and rates the pain 8 out of 10. Denies fever, nausea /vomiting, chest pain, shortness of breath, dizziness, weakness, headache. Review of Systems Review of Systems Constitutional: Denies fever or chills [] Eyes: Denies change in visual acuity, redness, or eye pain [] HENT: Denies nasal congestion or sore throat [] Respiratory: Denies cough or shortness of breath [] Cardiovascular: No additional information not addressed in HPI [] GI: Denies abdominal pain, nausea, vomiting, bloody stools or diarrhea [] : Denies dysuria or hematuria [] Musculoskeletal: Denies back pain. Complains of knee pain. [] Integument: Denies rash or skin lesions [] Neurologic: Denies headache, focal weakness or sensory changes [] Endocrine: Denies polyuria or polydipsia [] Current Medications Current Medications Current Medications Medications (Trade) Dose Ordered Sig/Nico Start Time Stop Time Status Last Admin Dose Admin Acetaminophen/ Hydrocodone Bitart (Lortab 5/325) 1 tab 1X ONCE 07/25/17 12:00 07/25/17 12:01 DC 07/25/17 12:23 1 TAB Morphine Sulfate 2 mg 1X ONCE 07/25/17 13:45 07/25/17 13:47 DC 07/25/17 13:51 2 MG Piperacillin Sod/ Tazobactam Sod 4.5 gm/Sodium Chloride 100 ml @ 200 mls/hr 1X ONCE 07/25/17 12:00 07/25/17 12:29 DC 07/25/17 12:23 200 MLS/HR Potassium Chloride (Klor-Con) 40 meq 1X ONCE 07/25/17 13:45 07/25/17 13:47 DC 07/25/17 13:51 40 MEQ Allergies Allergies Allergies Coded Allergies Type Severity Reaction Last Updated Verified Sulfa (Sulfonamide Antibiotics) Allergy Intermediate Hives 01/19/15 Yes Physical Exam Physical Exam Constitutional: Well developed, well nourished, no acute distress, non-toxic appearance. [] HENT: Normocephalic, atraumatic, bilateral external ears normal, oropharynx moist, no oral exudates, nose normal. [] Eyes: PERRLA, EOMI, conjunctiva normal, no discharge. [] Neck: Normal range of motion, no tenderness, supple, no stridor. [] Cardiovascular:Heart rate regular rhythm, no murmur [] Lungs & Thorax: Bilateral breath sounds clear to auscultation [] Abdomen: Bowel sounds normal, soft, no tenderness, no masses, no pulsatile masses. [] Skin: Warm, dry, no erythema, no rash. [] Back: No tenderness, no CVA tenderness. [] Extremities: MILD LEFT KNEE TENDERNESS, ERYTHEMA AND WARMTH. MILD DRAINAGE FROM STAPLE SITE., no cyanosis, no clubbing, DECREASED ROM WITH FLEXION DUE TO PAIN, no edema. [] Neurologic: Alert and oriented X 3, normal motor function, normal sensory function, no focal deficits noted. [] Psychologic: Affect normal, judgement normal, mood normal. [] Current Patient Data Vital Signs Vital Signs Date Time Temp Pulse Resp B/P (MAP) Pulse Ox O2 Delivery O2 Flow Rate FiO2 07/25/17 13:51 20 95 Room Air 07/25/17 13:05 92 115/58 (77) 07/25/17 11:29 97.9 97.9 Lab Values Laboratory Tests Test 07/25/17 12:00 07/25/17 12:45 07/25/17 12:55 White Blood Count 11.3 x10^3/uL (4.0-11.0) H Red Blood Count 2.97 x10^6/uL (3.50-5.40) L Hemoglobin 8.5 g/dL (12.0-15.5) L Hematocrit 25.8 % (36.0-47.0) L Mean Corpuscular Volume 87 fL (79-100) Mean Corpuscular Hemoglobin 29 pg (25-35) Mean Corpuscular Hemoglobin Concent 33 g/dL (31-37) Red Cell Distribution Width 15.6 % (11.5-14.5) H Platelet Count 536 x10^3/uL (140-400) H Sodium Level 138 mmol/L (136-145) Potassium Level 3.0 mmol/L (3.5-5.1) L Chloride Level 97 mmol/L (98-107) L Carbon Dioxide Level 36 mmol/L (21-32) H Anion Gap 5 (6-14) L Blood Urea Nitrogen 10 mg/dL (7-20) Creatinine 0.8 mg/dL (0.6-1.0) Estimated GFR (Cockcroft-Gault) 70.7 BUN/Creatinine Ratio 13 (6-20) Glucose Level 57 mg/dL (70-99) L Calcium Level 9.4 mg/dL (8.5-10.1) Total Bilirubin 0.2 mg/dL (0.2-1.0) Aspartate Amino Transferase (AST) 32 U/L (15-37) Alanine Aminotransferase (ALT) 23 U/L (14-59) Alkaline Phosphatase 130 U/L (46-116) H Total Protein 7.3 g/dL (6.4-8.2) Albumin 2.0 g/dL (3.4-5.0) L Albumin/Globulin Ratio 0.4 (1.0-1.7) L Urine Collection Type U cath Urine Color Yellow Urine Clarity Clear Urine pH 7.5 Urine Specific [place] 1.020 Urine Protein 30 mg/dL (NEG-TRACE) Urine Glucose (UA) Negative mg/dL (NEG) Urine Ketones (Stick) Negative mg/dL (NEG) Urine Blood Negative (NEG) Urine Nitrite Negative (NEG) Urine Bilirubin Negative (NEG) Urine Urobilinogen Dipstick 1.0 mg/dL (0.2 mg/dL) Urine Leukocyte Esterase Trace (NEG) Urine RBC Rare /HPF (0-2) Urine WBC Rare /HPF (0-4) Urine Squamous Epithelial Cells Few /LPF Urine Bacteria Few /HPF (0-FEW) Urine Mucus Slight /LPF Laboratory Tests 07/25/17 12:00 Laboratory Tests 07/25/17 12:45 EKG EKG [] Radiology/Procedures Radiology/Procedures PROCEDURE: KNEE LEFT 3V Examination: 3 views of the left knee. History: History of medial knee swelling, infection Comparison: 07/06/2017 Findings: Total knee arthroplasty changes are again identified. Comminuted fracture of the distal femur along the superior margin of the femoral component of the knee prosthesis again identified. Plate and screw fixation of the distal femur fracture is identified. Mild soft tissue edema identified in the lateral aspect of the leg about the knee joint. There is a metallic clip or foreign body projecting in the soft tissue lateral to the femoral condyle. Impression: 1. Comminuted fracture of the distal femur again identified with plate and screw fixation. 2. There is a metallic clip or foreign body projecting in the soft tissue lateral to the femoral condyle.[] PROCEDURE: VENOUS LOWER EXTREMITY LEFT EXAM: Left lower extremity Doppler sonogram. HISTORY: Swelling. TECHNIQUE: Grayscale and color Doppler sonographic imaging of the lower extremity veins with spectral waveform analysis was performed. COMPARISON: None. FINDINGS: There is normal color flow, normal compressibility and there are normal spectral waveforms within the lower extremity veins. IMPRESSION: No Doppler evidence of lower extremity venous thrombosis. Course & Med Decision Making Course & Med Decision Making Pertinent Labs and Imaging studies reviewed. (See chart for details) []Discussed case with Dr. Rubi's nurse who will have him call the ER. Discussed case with hospitalist, Dr. Bucio. requests ID consult and agrees to admission and further management of patient. Patient stable for admission. Dragon Disclaimer Dragon Disclaimer This electronic medical record was generated, in whole or in part, using a voice recognition dictation system. Departure Departure Impression: Primary Impression: Foreign body of knee Additional Impression: Wound infection Disposition: 09 ADMITTED INPATIENT Admitting Physician: Amarilis Bucio Condition: STABLE Referrals: CYNTHIA AGUIRRE (PCP) Problem Qualifiers CECIL CAIN Jul 25, 2017 12:25
[2017-07-25 12:30] LABS: HEMATOCRIT 25.8 % (36.0-47.0); HEMOGLOBIN 8.5 g/dL (12.0-15.5); RED BLOOD COUNT 2.97 x10^6/uL (3.50-5.40); RED CELL DISTRIBUTION WIDTH 15.6 % (11.5-14.5); WHITE BLOOD COUNT 11.3 x10^3/uL (4.0-11.0)
--- NOTE | 2017-07-25 12:43 | RAD ---
EXAM: Left lower extremity Doppler sonogram. HISTORY: Swelling. TECHNIQUE: Grayscale and color Doppler sonographic imaging of the lower extremity veins with spectral waveform analysis was performed. COMPARISON: None. FINDINGS: There is normal color flow, normal compressibility and there are normal spectral waveforms within the lower extremity veins. IMPRESSION: No Doppler evidence of lower extremity venous thrombosis.
[2017-07-25 13:10] LABS: CALCIUM 9.4 mg/dL (8.5-10.1); CREATININE 0.8 mg/dL (0.6-1.0); GFR 70.7
[2017-07-25 13:15] LABS: ALBUMIN/GLOBULIN RATIO 0.4 (1.0-1.7); TOTAL BILIRUBIN 0.2 mg/dL (0.2-1.0); TOTAL PROTEIN 7.3 g/dL (6.4-8.2)
--- NOTE | 2017-07-25 13:15 | RAD ---
Examination: 3 views of the left knee. History: History of medial knee swelling, infection Comparison: 07/06/2017 Findings: Total knee arthroplasty changes are again identified. Comminuted fracture of the distal femur along the superior margin of the femoral component of the knee prosthesis again identified. Plate and screw fixation of the distal femur fracture is identified. Mild soft tissue edema identified in the lateral aspect of the leg about the knee joint. There is a metallic clip or foreign body projecting in the soft tissue lateral to the femoral condyle. Impression: 1. Comminuted fracture of the distal femur again identified with plate and screw fixation. 2. There is a metallic clip or foreign body projecting in the soft tissue lateral to the femoral condyle.
[2017-07-25 13:17] LABS: BILIRUBIN,URINE NEGATIVE (NEG); GLUCOSE,URINE NEGATIVE (NEG); NITRITE,URINE NEGATIVE (NEG); PH,URINE 7.5; PROTEIN,URINE 30 mg/dL (NEG-TRACE)
[2017-07-25] MEDS ORDERED: POTASSIUM CHLORIDE 20 MEQ TABLET.ER. PO ONE (13:45)
[2017-07-25] MEDS ORDERED: MORPHINE SULFATE 4 MG/ML DISP.SYRIN. IV ONE (13:45)
[2017-07-25 13:47] LABS: BACTERIA,URINE FEW /HPF (0-FEW); RBC,URINE RARE /HPF (0-2); SQUAMOUS EPITHELIAL CELL,UR FEW /LPF; WBC,URINE RARE /HPF (0-4)
[2017-07-25] MEDS ORDERED: ONDANSETRON PF 4 MG/2 ML VIAL. IV PRN (14:30)
[2017-07-25] MEDS ORDERED: CHOL500016 PO (15:20)
[2017-07-25] MEDS ORDERED: HYDR-2758 PO (15:20)
[2017-07-25] MEDS ORDERED: MELO15TA23 PO (15:22)
[2017-07-25] MEDS ORDERED: GLIP-24 PO (15:22)
[2017-07-25] MEDS ORDERED: INSU100I27 SQ (15:24)
[2017-07-25] MEDS ORDERED: PROM25TA10 PO (15:24)
[2017-07-25 15:25] VITALS: BP 110/49
[2017-07-25] MEDS ORDERED: PIP/TAZO PER PHARMACY MC PRN (16:00)
[2017-07-25] MEDS ORDERED: DEXTROSE 50% 25 GM / 50ML DISP.SYRIN. IV PRN ×2 (16:30→17:00)
[2017-07-25] MEDS: POLYETHYLENE GLYCOL 3350 17 GM PACKET. PO SCH (16:44)
[2017-07-25] MEDS: MORPHINE IR 15 MG TABLET PO PRN ×2 (16:45→22:51)
--- NOTE | 2017-07-25 16:53 | PDOC1 ---
History and Physical Date of Admission Date of Admission DATE: 07/25/17 TIME: 16:45 History of Present Illness History of Present Illness Ms. Charles is a 72 year old female with a history of diabetes presents to the ED complaining of left knee pain x 4 days. States she had a knee replacement surgery a week and a half ago. States she followed up with the nurses and Dr. Rubi's office for staple removal. States some of the pierce were removed but one was stuck in there. States since then the knee has gotten swollen and red. Describes the pain as sharp and rates the pain 8 out of 10. Denies fever, nausea /vomiting, chest pain, shortness of breath, dizziness, weakness, headache. Past Medical History Cardiovascular: CHF Endocrine: Diabetes Past Surgical History Past Surgical History: Total knee replacement Family History Family History: Diabetes Social History Smoke: No ALCOHOL: none Drugs: None Current Problem List Problem List Problems Medical Problems: (1) Foreign body of knee Status: Acute (2) Wound infection Status: Acute Problems: Current Medications Current Medications Current Medications Acetaminophen/ Hydrocodone Bitart (Lortab 5/325) 1 tab 1X ONCE PO Last administered on 07/25/17 12:23; Start 07/25/17 at 12:00; Stop 07/25/17 at 12:01 ; Status DC Piperacillin Sod/ Tazobactam Sod 4.5 gm/Sodium Chloride 100 ml @ 200 mls/hr 1X ONCE IV Last administered on 07/25/17 12:23; Start 07/25/17 at 12:00; Stop 07/25/17 at 12:29; Status DC Morphine Sulfate 2 mg 1X ONCE IV Last administered on 07/25/17 13:51; Start 07/25/17 at 13:45; Stop 07/25/17 at 13:47; Status DC Potassium Chloride (Klor-Con) 40 meq 1X ONCE PO Last administered on 13:51; Start 07/25/17 at 13:45; Stop 07/25/17 at 13:47; Status DC Ondansetron HCl (Zofran) 4 mg PRN Q8HRS PRN IV NAUSEA/VOMITING; Start 07/25/17 at 14:30; Stop 07/26/17 at 14:29 Piperacillin Sod/ Tazobactam Sod (Zosyn Per Pharmacy) 1 each PRN DAILY PRN MC SEE COMMENTS; Start 07/25/17 at 16:00; Stop 07/25/17 at 16:24; Status DC Morphine Sulfate (Morphine Ir) 15 mg PRN Q4HRS PRN PO PAIN; Start 07/25/17 at 16:00 Morphine Sulfate 4 mg PRN Q2HR PRN IV PAIN; Start 07/25/17 at 16:00 Acetaminophen (Tylenol) 650 mg PRN Q6HRS PRN PO pain; Start 07/25/17 at 16:00 Docusate Sodium (Colace) 100 mg DAILY PO ; Start 07/26/17 at 09:00 Polyethylene Glycol (miraLAX PACKET) 17 gm DAILY PO ; Start 07/25/17 at 16:00 Dextrose (Dextrose 50%-Water Syringe) 12.5 gm PRN Q15MIN PRN IV SEE COMMENTS; Start 07/25/17 at 16:30 Active Scripts Active Reported Promethazine Hcl 25 Mg Tablet 25 Mg PO Q6H PRN Levemir Flextouch (Insulin Detemir) 100 Unit/1 Ml Insuln.pen 40 Unit SQ QPM Inject 40 units subcutaneously every night with the evening meal. Meloxicam 15 Mg Tablet 15 Mg PO DAILY Glipizide Xl (Glipizide) 5 Mg Tab.er.24 5 Mg PO DAILY Hydrocodone-Apap 5-325 (Hydrocodone Bit/Acetaminophen) 1 Each Tablet 1 Tab PO PRN Q6HRS PRN Vitamin D3 (Cholecalciferol (Vitamin D3)) 5,000 Unit Tablet 5,000 Unit PO DAILY Crestor (Rosuvastatin Calcium) 40 Mg Tablet 40 Mg PO HS Lexapro (Escitalopram Oxalate) 20 Mg Tablet 20 Mg PO DAILY Gabapentin 300 Mg Capsule 300 Mg PO TID Calcium (Calcium Carbonate) 500 Mg Tablet 500 Mg PO DAILY Zinc (Zinc Gluconate-Zinc Picolinate) 30 Mg Capsule 30 Mg PO Levothyroxine Sodium 50 Mcg Tablet 1 Tab PO DAILY Plavix (Clopidogrel Bisulfate) 75 Mg Tablet 75 Mg PO DAILY Metformin Hcl 1,000 Mg Tablet 1,000 Mg PO BID next dose Wed evening dose 12/22 Allergies Allergies: Coded Allergies: Sulfa (Sulfonamide Antibiotics) (Verified Allergy, Intermediate, Hives, ) itching ROS General: YES: Fatigue, Malaise, No: Chills, Night Sweats, Appetite, Other PSYCHOLOGICAL ROS: No: Anxiety, Behavioral Disorder, Concentration difficultie , Decreased libido, Depression, Disorientation, Hallucinations, Hostility, Irritablity, Memory difficulties, Mood Swings, Obsessive thoughts, Physical abuse, Sexual abuse, Sleep disturbances, Suicidal ideation, Other Eyes: No Blurry vision, No Decreased vision, No Double vision, No Dry eyes, No Excessive tearing, No Eye Pain, No Itchy Eyes, No Loss of vision, No Photophobia , No Scotomata, No Uses contacts, No Uses glasses, No Other HEENT: YES: Heacaches, No: Visual Changes, Hearing change, Nasal congestion, Nasal discharge, Oral lesions, Sinus pain, Sore Throat, Epistaxis, Sneezing, Snoring, Tinnitus, Vertigo, Vocal changes, Other Respiratory: No: Cough, Hemoptysis, Orthopnea, Pleuritic Pain, Shortness of breath, SOB with excertion, Sputum Changes, Stridor, Tachypnea, Wheezing, Other Cardiovascular: No Chest Pain, No Palpitations, No Orthopnea, No Paroxysmal Noc. Dyspnea, No Edema, No Lt Headedness, No Other Gastrointestinal: Yes Nausea, No Vomiting, No Abdominal Pain, No Diarrhea, No Constipation, No Melena, No Hematochezia, No Other Genitourinary: No Dysuria, No Frequency, No Incontinence, No Hematuria, No Retention, No Discharge, No Urgency, No Pain, No Flank Pain, No Other, No , No , No , No , No , No , No Musculoskeletal: Yes Gait Disturbance, Yes Joint Pain, Yes Joint Stiffness Neurological: No Behavorial Changes, No Bowel/Bladder ControlChng, No Confusion , No Headaches, No Impaired Coord/balance, No Memory Loss, No Numbness/Tingling , No Seizures, No Speech Problems, No Tremors, No Visual Changes, No Weakness, No Other Skin: Yes Dry Skin, Yes Rash, Yes Skin Lesion Changes, No Eczema, No Hair Changes, No Lumps, No Mole Changes, No Mottling, No Nail Changes, No Pruritus, No Other, No Acne Physical Exam General: Alert, Oriented X3, Cooperative, mild distress HEENT: Atraumatic, PERRLA, EOMI Lungs: Clear to auscultation, Normal air movement Heart: RRR, no gallops, no murmurs Abdomen: Normal bowel sounds, Soft Rectal Exam: not examined Extremities: Normal pulses, Other (swollen and tender left knee, with exudate and erythema) Skin: Other (redness and pain, weeping open 1.5 cm wound) Neuro: Normal speech, Sensation intact Psych/Mental Status: Mental status NL, Mood NL Vitals Vitals Vital Signs Date Time Temp Pulse Resp B/P (MAP) Pulse Ox O2 Delivery O2 Flow Rate FiO2 07/25/17 15:25 97.9 96 20 110/49 (69) 97 Nasal Cannula 1.0 97.9 Labs Labs Laboratory Tests Test 07/25/17 12:00 07/25/17 12:45 07/25/17 12:55 07/25/17 16:29 White Blood Count 11.3 x10^3/uL (4.0-11.0) Red Blood Count 2.97 x10^6/uL (3.50-5.40) Hemoglobin 8.5 g/dL (12.0-15.5) Hematocrit 25.8 % (36.0-47.0) Mean Corpuscular Volume 87 fL (79-100) Mean Corpuscular Hemoglobin 29 pg (25-35) Mean Corpuscular Hemoglobin Concent 33 g/dL (31-37) Red Cell Distribution Width 15.6 % (11.5-14.5) Platelet Count 536 x10^3/uL (140-400) Sodium Level 138 mmol/L (136-145) Potassium Level 3.0 mmol/L (3.5-5.1) Chloride Level 97 mmol/L (98-107) Carbon Dioxide Level 36 mmol/L (21-32) Anion Gap 5 (6-14) Blood Urea Nitrogen 10 mg/dL (7-20) Creatinine 0.8 mg/dL (0.6-1.0) Estimated GFR (Cockcroft-Gault) 70.7 BUN/Creatinine Ratio 13 (6-20) Glucose Level 57 mg/dL (70-99) Calcium Level 9.4 mg/dL (8.5-10.1) Total Bilirubin 0.2 mg/dL (0.2-1.0) Aspartate Amino Transf (AST/SGOT) 32 U/L (15-37) Alanine Aminotransferase (ALT/SGPT) 23 U/L (14-59) Alkaline Phosphatase 130 U/L (46-116) Total Protein 7.3 g/dL (6.4-8.2) Albumin 2.0 g/dL (3.4-5.0) Albumin/Globulin Ratio 0.4 (1.0-1.7) Urine Collection Type U cath Urine Color Yellow Urine Clarity Clear Urine pH 7.5 Urine Specific [place] 1.020 Urine Protein 30 mg/dL (NEG-TRACE) Urine Glucose (UA) Negative mg/dL (NEG) Urine Ketones (Stick) Negative mg/dL (NEG) Urine Blood Negative (NEG) Urine Nitrite Negative (NEG) Urine Bilirubin Negative (NEG) Urine Urobilinogen Dipstick 1.0 mg/dL (0.2 mg/dL) Urine Leukocyte Esterase Trace (NEG) Urine RBC Rare /HPF (0-2) Urine WBC Rare /HPF (0-4) Urine Squamous Epithelial Cells Few /LPF Urine Bacteria Few /HPF (0-FEW) Urine Mucus Slight /LPF Glucose (Fingerstick) 56 mg/dL (70-99) Laboratory Tests Test 07/25/17 12:00 07/25/17 12:45 07/25/17 12:55 07/25/17 16:29 White Blood Count 11.3 x10^3/uL (4.0-11.0) Red Blood Count 2.97 x10^6/uL (3.50-5.40) Hemoglobin 8.5 g/dL (12.0-15.5) Hematocrit 25.8 % (36.0-47.0) Mean Corpuscular Volume 87 fL (79-100) Mean Corpuscular Hemoglobin 29 pg (25-35) Mean Corpuscular Hemoglobin Concent 33 g/dL (31-37) Red Cell Distribution Width 15.6 % (11.5-14.5) Platelet Count 536 x10^3/uL (140-400) Sodium Level 138 mmol/L (136-145) Potassium Level 3.0 mmol/L (3.5-5.1) Chloride Level 97 mmol/L (98-107) Carbon Dioxide Level 36 mmol/L (21-32) Anion Gap 5 (6-14) Blood Urea Nitrogen 10 mg/dL (7-20) Creatinine 0.8 mg/dL (0.6-1.0) Estimated GFR (Cockcroft-Gault) 70.7 BUN/Creatinine Ratio 13 (6-20) Glucose Level 57 mg/dL (70-99) Calcium Level 9.4 mg/dL (8.5-10.1) Total Bilirubin 0.2 mg/dL (0.2-1.0) Aspartate Amino Transf (AST/SGOT) 32 U/L (15-37) Alanine Aminotransferase (ALT/SGPT) 23 U/L (14-59) Alkaline Phosphatase 130 U/L (46-116) Total Protein 7.3 g/dL (6.4-8.2) Albumin 2.0 g/dL (3.4-5.0) Albumin/Globulin Ratio 0.4 (1.0-1.7) Urine Collection Type U cath Urine Color Yellow Urine Clarity Clear Urine pH 7.5 Urine Specific [place] 1.020 Urine Protein 30 mg/dL (NEG-TRACE) Urine Glucose (UA) Negative mg/dL (NEG) Urine Ketones (Stick) Negative mg/dL (NEG) Urine Blood Negative (NEG) Urine Nitrite Negative (NEG) Urine Bilirubin Negative (NEG) Urine Urobilinogen Dipstick 1.0 mg/dL (0.2 mg/dL) Urine Leukocyte Esterase Trace (NEG) Urine RBC Rare /HPF (0-2) Urine WBC Rare /HPF (0-4) Urine Squamous Epithelial Cells Few /LPF Urine Bacteria Few /HPF (0-FEW) Urine Mucus Slight /LPF Glucose (Fingerstick) 56 mg/dL (70-99) VTE Prophylaxis Ordered VTE Prophylaxis Devices: Yes VTE Pharmacological Prophylaxi: No Assessment/Plan Assessment/Plan cellulitis with erythema, open ulcer with fluid recent knee surg, IV zosyn given in the ER, Dr. Rubi to eval if abx should be continued not sepsis, tachycardia only, tachypnea could be chronic pulm consult wound care, ID DM2, with hypoglycemia, hld meds, add SSI, check A1c, juice X2 now hypokalemia, given K, will give mag severe malnutrition, POA hypercarbia, poss COPD, start nebs, limit NC 02 anemia, NOS OLYA BURROUGHS MD Jul 25, 2017 16:53
[2017-07-25] MEDS ORDERED: MAGNESIUM SULFATE 2GM 50 ML IV ONE (17:00)
[2017-07-25] MEDS: INSULIN DETEMIR 300 UNITS/3 ML INSULN.PEN. SQ SCH (18:44)
[2017-07-25 19:00] VITALS: BP 111/52
[2017-07-25] MEDS: IPRATRPIUM/ALBUTEROL 0.5/2.5MG 3 ML NEBU. NEB SCH (19:56)
[2017-07-25] MEDS ORDERED: INFLUENZA VAX SCREEN BY RX. MC PRN (20:15)
[2017-07-25] MEDS: INSULIN ASPART 300 UNITS/3 ML INSULN.PEN SQ SCH (21:00)
[2017-07-25] MEDS: ATORVASTATIN CALCIUM 40 MG TABLET. PO SCH (21:28)
[2017-07-25] MEDS: GABAPENTIN 300 MG CAPSULE. PO SCH (21:28)
[2017-07-25 23:07] VITALS: BP 138/56
[2017-07-26 03:16] VITALS: BP 116/58
[2017-07-26] MEDS: MORPHINE IR 15 MG TABLET PO PRN ×3 (04:07→16:45)
[2017-07-26 04:45] LABS: BASO # 0.1 x10^3/uL (0.0-0.2); BASO % 1 % (0-3); EOS % 3 % (0-3); HEMATOCRIT 24.2 % (36.0-47.0); LYMPH # 2.2 x10^3/uL (1.0-4.8); LYMPH % 26 % (24-48); MEAN CORPUSCULAR HEMOGLOBIN 29 pg (25-35); MEAN CORPUSCULAR HGB CONC 33 g/dL (31-37); MEAN CORPUSCULAR VOLUME 87 fL (79-100); MONO % 9 % (0-9); NEUT % 61 % (31-73); PLATELET COUNT 476 x10^3/uL (140-400); RED BLOOD COUNT 2.77 x10^6/uL (3.50-5.40); RED CELL DISTRIBUTION WIDTH 16.4 % (11.5-14.5); WHITE BLOOD COUNT 8.4 x10^3/uL (4.0-11.0)
[2017-07-26 05:03] LABS: ALBUMIN 1.9 g/dL (3.4-5.0); ALBUMIN/GLOBULIN RATIO 0.4 (1.0-1.7); CALCIUM 8.8 mg/dL (8.5-10.1); CREATININE 0.8 mg/dL (0.6-1.0); GFR 70.7; POTASSIUM 3.6 mmol/L (3.5-5.1); TOTAL BILIRUBIN 0.2 mg/dL (0.2-1.0); TOTAL PROTEIN 6.9 g/dL (6.4-8.2)
[2017-07-26] MEDS: LEVOTHYROXINE 50 MCG TABLET PO SCH (06:21)
[2017-07-26 07:15] VITALS: BP 112/59
[2017-07-26] MEDS: INSULIN ASPART 300 UNITS/3 ML INSULN.PEN SQ SCH ×4 (07:30→21:00)
[2017-07-26] MEDS: IPRATRPIUM/ALBUTEROL 0.5/2.5MG 3 ML NEBU. NEB SCH ×4 (08:09→20:11)
--- NOTE | 2017-07-26 08:37 | PDOC ---
Infectious Disease Note Vital Sign Vital Signs Vital Signs Date Time Temp Pulse Resp B/P (MAP) Pulse Ox O2 Delivery O2 Flow Rate FiO2 07/26/17 08:12 95 Room Air 07/26/17 05:07 1.0 07/26/17 04:07 20 07/26/17 03:16 98.4 99 116/58 (77) 98.4 Labs Lab Laboratory Tests Test 07/25/17 12:00 07/25/17 12:45 07/25/17 12:55 07/25/17 16:29 White Blood Count 11.3 x10^3/uL (4.0-11.0) Red Blood Count 2.97 x10^6/uL (3.50-5.40) Hemoglobin 8.5 g/dL (12.0-15.5) Hematocrit 25.8 % (36.0-47.0) Mean Corpuscular Volume 87 fL (79-100) Mean Corpuscular Hemoglobin 29 pg (25-35) Mean Corpuscular Hemoglobin Concent 33 g/dL (31-37) Red Cell Distribution Width 15.6 % (11.5-14.5) Platelet Count 536 x10^3/uL (140-400) Sodium Level 138 mmol/L (136-145) Potassium Level 3.0 mmol/L (3.5-5.1) Chloride Level 97 mmol/L (98-107) Carbon Dioxide Level 36 mmol/L (21-32) Anion Gap 5 (6-14) Blood Urea Nitrogen 10 mg/dL (7-20) Creatinine 0.8 mg/dL (0.6-1.0) Estimated GFR (Cockcroft-Gault) 70.7 BUN/Creatinine Ratio 13 (6-20) Glucose Level 57 mg/dL (70-99) Calcium Level 9.4 mg/dL (8.5-10.1) Total Bilirubin 0.2 mg/dL (0.2-1.0) Aspartate Amino Transf (AST/SGOT) 32 U/L (15-37) Alanine Aminotransferase (ALT/SGPT) 23 U/L (14-59) Alkaline Phosphatase 130 U/L (46-116) Total Protein 7.3 g/dL (6.4-8.2) Albumin 2.0 g/dL (3.4-5.0) Albumin/Globulin Ratio 0.4 (1.0-1.7) Urine Collection Type U cath Urine Color Yellow Urine Clarity Clear Urine pH 7.5 Urine Specific [place] 1.020 Urine Protein 30 mg/dL (NEG-TRACE) Urine Glucose (UA) Negative mg/dL (NEG) Urine Ketones (Stick) Negative mg/dL (NEG) Urine Blood Negative (NEG) Urine Nitrite Negative (NEG) Urine Bilirubin Negative (NEG) Urine Urobilinogen Dipstick 1.0 mg/dL (0.2 mg/dL) Urine Leukocyte Esterase Trace (NEG) Urine RBC Rare /HPF (0-2) Urine WBC Rare /HPF (0-4) Urine Squamous Epithelial Cells Few /LPF Urine Bacteria Few /HPF (0-FEW) Urine Mucus Slight /LPF Glucose (Fingerstick) 56 mg/dL (70-99) Test 07/25/17 17:11 07/25/17 18:40 07/25/17 21:09 07/26/17 04:20 Glucose (Fingerstick) 93 mg/dL (70-99) 109 mg/dL (70-99) 179 mg/dL (70-99) White Blood Count 8.4 x10^3/uL (4.0-11.0) Red Blood Count 2.77 x10^6/uL (3.50-5.40) Hemoglobin 8.0 g/dL (12.0-15.5) Hematocrit 24.2 % (36.0-47.0) Mean Corpuscular Volume 87 fL (79-100) Mean Corpuscular Hemoglobin 29 pg (25-35) Mean Corpuscular Hemoglobin Concent 33 g/dL (31-37) Red Cell Distribution Width 16.4 % (11.5-14.5) Platelet Count 476 x10^3/uL (140-400) Neutrophils (%) (Auto) 61 % (31-73) Lymphocytes (%) (Auto) 26 % (24-48) Monocytes (%) (Auto) 9 % (0-9) Eosinophils (%) (Auto) 3 % (0-3) Basophils (%) (Auto) 1 % (0-3) Neutrophils # (Auto) 5.1 x10^3uL (1.8-7.7) Lymphocytes # (Auto) 2.2 x10^3/uL (1.0-4.8) Monocytes # (Auto) 0.8 x10^3/uL (0.0-1.1) Eosinophils # (Auto) 0.2 x10^3/uL (0.0-0.7) Basophils # (Auto) 0.1 x10^3/uL (0.0-0.2) Sodium Level 138 mmol/L (136-145) Potassium Level 3.6 mmol/L (3.5-5.1) Chloride Level 98 mmol/L (98-107) Carbon Dioxide Level 34 mmol/L (21-32) Anion Gap 6 (6-14) Blood Urea Nitrogen 6 mg/dL (7-20) Creatinine 0.8 mg/dL (0.6-1.0) Estimated GFR (Cockcroft-Gault) 70.7 BUN/Creatinine Ratio 8 (6-20) Glucose Level 140 mg/dL (70-99) Calcium Level 8.8 mg/dL (8.5-10.1) Total Bilirubin 0.2 mg/dL (0.2-1.0) Aspartate Amino Transf (AST/SGOT) 27 U/L (15-37) Alanine Aminotransferase (ALT/SGPT) 20 U/L (14-59) Alkaline Phosphatase 125 U/L (46-116) Total Protein 6.9 g/dL (6.4-8.2) Albumin 1.9 g/dL (3.4-5.0) Albumin/Globulin Ratio 0.4 (1.0-1.7) Test 07/26/17 07:26 Glucose (Fingerstick) 120 mg/dL (70-99) Objective Assessment Left knee 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
[2017-07-26] MEDS ORDERED: FLU VACC QS2017-18 (36MOS+)/PF 0.5 ML SYRINGE. VAX IM ONE (09:00)
[2017-07-26] MEDS ORDERED: VANCOMYCIN 1.75 GM in IV NORMAL SALINE 500ML BAG 500 ML IV ONE (09:00)
[2017-07-26] MEDS: GABAPENTIN 300 MG CAPSULE. PO SCH ×3 (09:35→21:46)
[2017-07-26] MEDS: DOCUSATE SODIUM 100 MG CAPSULE. PO SCH (09:35)
[2017-07-26] MEDS: CITALOPRAM 20 MG TABLET. PO SCH (09:35)
[2017-07-26] MEDS: MELOXICAM 7.5 MG TABLET PO SCH (09:35)
[2017-07-26] MEDS: CALCIUM CARBONATE 500 MG TABLET PO SCH (09:35)
[2017-07-26] MEDS: CHOLECALCIFEROL (VITAMIN D3) 5,000 UNIT CAPSULE PO SCH (09:35)
[2017-07-26] MEDS: POLYETHYLENE GLYCOL 3350 17 GM PACKET. PO SCH (09:35)
[2017-07-26 11:20] VITALS: BP 115/60
[2017-07-26] MEDS: VANCOMYCIN PER PHARMACY MC PRN (12:26)
[2017-07-26] MEDS: PIPERACILLIN/TAZOBACTAM 3.375 GM in IV NORMAL SALINE 50ML 50 ML IV SCH ×2 (13:02→18:25)
[2017-07-26] MEDS: MORPHINE SULFATE 4 MG/ML DISP.SYRIN. IV PRN ×2 (13:41→21:47)
--- NOTE | 2017-07-26 14:17 | PDOC ---
PROGRESS NOTES Chief Complaint Chief Complaint Cellulitis ASSESSMENT AND PLAN: 1. L knee infection: s/p TKR and fracture pinning 10 days ago, staple removal few days ago with retained staple. d/w Dr Biggs: IV Abx for now; hardware will have to come out eventually; await Dr Rubi's input. 2. DM2: fairly well controlled on oral regimen. cont ISS 3. Hypothyroidism: on synthroid. check TSH 4. HTN/HLD: continue home regimen 5. Hypoalbuminemia: severe, with acute inflammation on chronic malnutrition. Nutrition consult History of Present Illness History of Present Illness pain in knee; wants to go back to rehab [facility] Vitals Vitals Vital Signs Date Time Temp Pulse Resp B/P (MAP) Pulse Ox O2 Delivery O2 Flow Rate FiO2 07/26/17 13:41 16 Room Air 07/26/17 11:40 95 1.0 07/26/17 11:20 97.3 100 115/60 (78) 97.3 Physical Exam General: Alert, Oriented X3, Cooperative, mild distress Lungs: Clear, Other Abdomen: Normal bowel sounds, Soft Extremities: Normal pulses, Other (swollen and tender left knee, with exudate and erythema) Skin: Other (redness and pain, weeping open 1.5 cm wound) Labs LABS Laboratory Tests Test 07/25/17 16:29 07/25/17 17:11 07/25/17 18:40 07/25/17 21:09 Glucose (Fingerstick) 56 mg/dL (70-99) 93 mg/dL (70-99) 109 mg/dL (70-99) 179 mg/dL (70-99) Test 07/26/17 04:20 07/26/17 07:26 07/26/17 11:48 White Blood Count 8.4 x10^3/uL (4.0-11.0) Red Blood Count 2.77 x10^6/uL (3.50-5.40) Hemoglobin 8.0 g/dL (12.0-15.5) Hematocrit 24.2 % (36.0-47.0) Mean Corpuscular Volume 87 fL (79-100) Mean Corpuscular Hemoglobin 29 pg (25-35) Mean Corpuscular Hemoglobin Concent 33 g/dL (31-37) Red Cell Distribution Width 16.4 % (11.5-14.5) Platelet Count 476 x10^3/uL (140-400) Neutrophils (%) (Auto) 61 % (31-73) Lymphocytes (%) (Auto) 26 % (24-48) Monocytes (%) (Auto) 9 % (0-9) Eosinophils (%) (Auto) 3 % (0-3) Basophils (%) (Auto) 1 % (0-3) Neutrophils # (Auto) 5.1 x10^3uL (1.8-7.7) Lymphocytes # (Auto) 2.2 x10^3/uL (1.0-4.8) Monocytes # (Auto) 0.8 x10^3/uL (0.0-1.1) Eosinophils # (Auto) 0.2 x10^3/uL (0.0-0.7) Basophils # (Auto) 0.1 x10^3/uL (0.0-0.2) Sodium Level 138 mmol/L (136-145) Potassium Level 3.6 mmol/L (3.5-5.1) Chloride Level 98 mmol/L (98-107) Carbon Dioxide Level 34 mmol/L (21-32) Anion Gap 6 (6-14) Blood Urea Nitrogen 6 mg/dL (7-20) Creatinine 0.8 mg/dL (0.6-1.0) Estimated GFR (Cockcroft-Gault) 70.7 BUN/Creatinine Ratio 8 (6-20) Glucose Level 140 mg/dL (70-99) Calcium Level 8.8 mg/dL (8.5-10.1) Total Bilirubin 0.2 mg/dL (0.2-1.0) Aspartate Amino Transf (AST/SGOT) 27 U/L (15-37) Alanine Aminotransferase (ALT/SGPT) 20 U/L (14-59) Alkaline Phosphatase 125 U/L (46-116) Total Protein 6.9 g/dL (6.4-8.2) Albumin 1.9 g/dL (3.4-5.0) Albumin/Globulin Ratio 0.4 (1.0-1.7) Glucose (Fingerstick) 120 mg/dL (70-99) 146 mg/dL (70-99) LEWIS CASTILLO MD Jul 26, 2017 14:17
[2017-07-26 15:15] VITALS: BP 118/64
[2017-07-26] MEDS: INSULIN DETEMIR 300 UNITS/3 ML INSULN.PEN. SQ SCH (18:34)
[2017-07-26 19:00] VITALS: BP 103/50
[2017-07-26] MEDS: ATORVASTATIN CALCIUM 40 MG TABLET. PO SCH (21:46)
[2017-07-26 23:00] VITALS: BP 102/57
[2017-07-27] MEDS: PIPERACILLIN/TAZOBACTAM 3.375 GM in IV NORMAL SALINE 50ML 50 ML IV SCH ×4 (00:18→18:20)
[2017-07-27 03:00] VITALS: BP 121/51
[2017-07-27] MEDS: VANCOMYCIN 1 GM in IV NORMAL SALINE 250ML 250 ML IV SCH ×2 (04:09→22:17)
[2017-07-27] MEDS: LEVOTHYROXINE 50 MCG TABLET PO SCH (06:11)
--- NOTE | 2017-07-27 06:37 | CONS ---
DATE OF CONSULTATION: 07/26/2017 REQUESTING PHYSICIAN: Dr. Bucio. REASON FOR CONSULTATION: Knee infection. HISTORY OF PRESENT ILLNESS: This is a 72-year-old female who has undergone total knee arthroplasty on 06/26. The patient was in a rehab. Subsequently, the patient was brought in after having a mechanical fall and she had to undergo surgery on 07/11 for open femoral supracondylar fracture, was not communicating with the knee, but the plate and screws were applied there. The patient now is admitted from the office that she is having redness and drainage coming out of the lateral part of the knee. The patient denies any fever, denies any nausea, vomiting, diarrhea. Denies any chest pain, shortness of breath. Denies any headache or visual symptoms. PAST MEDICAL HISTORY: Positive for as I mentioned above the knee replacement and then subsequent fall with a fracture of the femur and required plate and screw. The patient also has diabetes, congestive heart failure. SOCIAL HISTORY: Negative for smoking, alcohol use or drug use. ALLERGIES: THE PATIENT IS ALLERGIC TO SULFA. CURRENT MEDICATIONS: The patient is on Zosyn. REVIEW OF SYSTEMS: As per HPI, all other systems reviewed are negative. PHYSICAL EXAMINATION: GENERAL: Alert and oriented female, not in distress. VITAL SIGNS: Stable, afebrile. HEENT: NAD. NECK: Supple, no JVP, no lymphadenopathy. LUNGS: Clear. HEART: S1, S2 regular. ABDOMEN: Benign. EXTREMITIES: No edema or cyanosis. SKIN: The left knee is red and slightly swollen, but there is opening on the lateral part of the knee just above the knee with yellow purulent drainage and the area is indurated and painful. NEUROLOGIC: The patient is otherwise neurologically intact. LABORATORY DATA: White count is 8.4; hemoglobin 8.0; platelets 476,000. BUN and creatinine are normal. Urinalysis is unremarkable. MRSA screen was negative. Blood culture is negative, that is old one. Knee x-ray reviewed. There is not only a staple foreign body in there, but towards the end where the plate and screws are she has a drainage. IMPRESSION: 1. 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 2. As of 07/11, the patient had closed left femoral supracondylar fracture, which was treated with open femoral supracondylar fracture with plate and screws fixation and the patient before then had a total knee arthroplasty on 06/26/2017. 3. Hypertension. 4. Congestive heart failure. 5. Diabetes. RECOMMENDATIONS: We would continue Zosyn. add vancomycin, taken cultures. A detailed discussion done with the patient about IV antibiotics, eventually need to have hardware removal done since it is right in the areas of infection, likely has involved the recent hardware, may not be the prosthesis, it is hard to say. Supportive care. We will check the culture and adjust PICC line and long-term antibiotics and then there may be chronic suppressive therapy. We will continue to discuss further with the family when we see them. Thank you very much, Dr. Bucio, for giving me the opportunity to participate in this patient's care. CLAY BUSTILLOS MD DR: JEFF/ar JOB#: [id number] / [id number] DARLYN
[2017-07-27 07:15] VITALS: BP 115/53
[2017-07-27] MEDS: INSULIN ASPART 300 UNITS/3 ML INSULN.PEN SQ SCH ×4 (07:30→21:45)
[2017-07-27] MEDS: POLYETHYLENE GLYCOL 3350 17 GM PACKET. PO SCH ×2 (08:30→09:00)
[2017-07-27] MEDS: CALCIUM CARBONATE 500 MG TABLET PO SCH (08:30)
--- NOTE | 2017-07-27 08:30 | PDOC ---
Infectious Disease Note Subjective Subjective pt feeling ok, cont pain, ROS ROS GEN: Denies fevers, chills, sweats HEENT: Denies blurred vision, sore throat CV: Denies chest pain RESP: Denies shortness of air, cough GI: Denies n/v/d NEURO: Denies confusion, dizziness Vital Sign Vital Signs Vital Signs Date Time Temp Pulse Resp B/P (MAP) Pulse Ox O2 Delivery O2 Flow Rate FiO2 07/27/17 07:15 97.6 96 16 115/53 (73) 96 Room Air 97.6 07/26/17 11:40 1.0 Physical Exam PHYSICAL EXAM GENERAL: NAD, Alert HEENT: PERRL, OC/OP NECK: Supple, no JVD, no LN LUNGS: Clear HEART: S1S2, no gallop, no murmur ABD: Soft, NT, no organomegaly, no rebound EXT: No edema, no cyanosis,, left knee red, swollen, tender and driange from lateral wound ANCHORMAN: Alert, oriented x 3, no focal neurologic deficit SKIN: No rash IV: ok Labs Lab Laboratory Tests Test 07/26/17 11:48 07/26/17 16:40 07/26/17 21:28 07/27/17 07:29 Glucose (Fingerstick) 146 mg/dL (70-99) 150 mg/dL (70-99) 162 mg/dL (70-99) 91 mg/dL (70-99) Micro GRAM STAIN Final WBCS MANY RBCS FEW GRAM POSITIVE COCCI OCCASIONAL SQUAMOUS EPITHELIAL CELLS MODERATE Objective Assessment Left knee infection with hardware in place DM CHF Plan Plan of Care vanc and zosyn culture taken supportive care likely hardware will need to go, may be at a later date CLAY BUSTILLOS MD Jul 27, 2017 08:30
[2017-07-27] MEDS: CITALOPRAM 20 MG TABLET. PO SCH (08:31)
[2017-07-27] MEDS: MELOXICAM 7.5 MG TABLET PO SCH (08:31)
[2017-07-27] MEDS: GABAPENTIN 300 MG CAPSULE. PO SCH ×3 (08:31→21:05)
[2017-07-27] MEDS: DOCUSATE SODIUM 100 MG CAPSULE. PO SCH (08:32)
[2017-07-27] MEDS: CHOLECALCIFEROL (VITAMIN D3) 5,000 UNIT CAPSULE PO SCH (08:32)
[2017-07-27] MEDS: IPRATRPIUM/ALBUTEROL 0.5/2.5MG 3 ML NEBU. NEB SCH ×4 (09:04→20:44)
[2017-07-27 11:10] VITALS: BP 100/49
--- NOTE | 2017-07-27 13:35 | PDOC2 ---
CONSULT Date of Consult Date of Consult DATE: 07/27/17 TIME: 13:26 Reason for Consult Reason for Consult: left knee Identification/Chief Complaint Chief Complaint left knee pain Problems: Source Source: Chart review, Patient History of Present Illness Reason for Visit: 72 year old with recent TKA, then within 2 weeks sustained a supracondylar femur fracture above the TKA. She underwent ORIF. Now presents with drainage and pain. Cultures taken and abx started. Past Medical History Cardiovascular: CHF Endocrine: Diabetes Past Surgical History Past Surgical History: Total knee replacement Family History Family History: Diabetes Social History No ALCOHOL: none Drugs: None Current Problem List Problem List Problems Medical Problems: (1) Foreign body of knee Status: Acute (2) Wound infection Status: Acute Current Medications Current Medications Current Medications Acetaminophen/ Hydrocodone Bitart (Lortab 5/325) 1 tab 1X ONCE PO Last administered on 07/25/17 12:23; Start 07/25/17 at 12:00; Stop 07/25/17 at 12:01 ; Status DC Piperacillin Sod/ Tazobactam Sod 4.5 gm/Sodium Chloride 100 ml @ 200 mls/hr 1X ONCE IV Last administered on 07/25/17 12:23; Start 07/25/17 at 12:00; Stop 07/25/17 at 12:29; Status DC Morphine Sulfate 2 mg 1X ONCE IV Last administered on 07/25/17 13:51; Start 07/25/17 at 13:45; Stop 07/25/17 at 13:47; Status DC Potassium Chloride (Klor-Con) 40 meq 1X ONCE PO Last administered on 13:51; Start 07/25/17 at 13:45; Stop 07/25/17 at 13:47; Status DC Ondansetron HCl (Zofran) 4 mg PRN Q8HRS PRN IV NAUSEA/VOMITING; Start 07/25/17 at 14:30; Stop 07/26/17 at 14:29; Status DC Piperacillin Sod/ Tazobactam Sod (Zosyn Per Pharmacy) 1 each PRN DAILY PRN MC SEE COMMENTS; Start 07/25/17 at 16:00; Stop 07/25/17 at 16:24; Status DC Morphine Sulfate (Morphine Ir) 15 mg PRN Q4HRS PRN PO PAIN Last administered on 07/26/17 09:34; Start 07/25/17 at 16:00 Morphine Sulfate 4 mg PRN Q2HR PRN IV PAIN Last administered on 07/26/17 21:47 ; Start 07/25/17 at 16:00 Acetaminophen (Tylenol) 650 mg PRN Q6HRS PRN PO pain; Start 07/25/17 at 16:00 Docusate Sodium (Colace) 100 mg DAILY PO Last administered on 07/27/17 08:32; Start 07/26/17 at 09:00 Polyethylene Glycol (miraLAX PACKET) 17 gm DAILY PO Last administered on 09:35; Start 07/25/17 at 16:00 Dextrose (Dextrose 50%-Water Syringe) 12.5 gm PRN Q15MIN PRN IV SEE COMMENTS; Start 07/25/17 at 16:30 Magnesium Sulfate/ Dextrose 50 ml @ 25 mls/hr 1X ONCE IV Last administered on 07/25/17 18:29; Start 07/25/17 at 17:00; Stop 07/25/17 at 18:59; Status DC Calcium Carbonate/ Glycine (Oscal) 500 mg DAILY PO Last administered on 08:30; Start 07/26/17 at 09:00 Acetaminophen/ Hydrocodone Bitart (Lortab 5/325) 1 tab PRN Q6HRS PRN PO PAIN; Start 07/25/17 at 17:00 Insulin Detemir (Levemir) 20 units QPM SQ Last administered on 07/26/17 18:34 ; Start 07/25/17 at 18:00 Levothyroxine Sodium (Synthroid) 50 mcg DAILY07 PO Last administered on 06:11; Start 07/26/17 at 07:00 Metformin HCl (Glucophage) 1,000 mg BIDWMEALS PO Last administered on 08:31; Start 07/25/17 at 17:00 Vitamin D (Vitamin D3) 5,000 unit DAILY PO Last administered on 07/27/17 08:32 ; Start 07/26/17 at 09:00 Citalopram Hydrobromide (CeleXA) 40 mg DAILY PO Last administered on 07/27/17 08:31; Start 07/26/17 at 09:00 Gabapentin (Neurontin) 300 mg TID PO Last administered on 07/27/17 13:23; Start 07/25/17 at 21:00 Meloxicam (Mobic) 15 mg DAILY PO Last administered on 07/27/17 08:31; Start at 09:00 Atorvastatin Calcium (Lipitor) 80 mg QHS PO Last administered on 07/26/17 21: 46; Start 07/25/17 at 21:00 Insulin Aspart (NovoLOG) 0-7 UNITS QIDACHS SQ ; Start 07/25/17 at 21:00 Dextrose (Dextrose 50%-Water Syringe) 12.5 gm PRN Q15MIN PRN IV SEE COMMENTS; Start 07/25/17 at 17:00 Albuterol/ Ipratropium (Duoneb) 3 ml RTQID NEB Last administered on 07/27/17 12:18; Start 07/25/17 at 20:00 Info (Do NOT chart on this placeholder) 1 each PRN 1X PRN MC SEE COMMENTS; Start 07/25/17 at 20:15; Status UNV Influenza Virus Vaccine Quadrival (Fluarix Quad [id number] Syringe) 0.5 ml ONCE ONCE VAX IM Last administered on 07/26/17 09:42; Start 07/26/17 at 09:00; Stop 07/26/17 at 09:01; Status DC Vancomycin HCl (Vanco Per Pharmacy) 1 each PRN DAILY PRN MC SEE COMMENTS Last administered on 07/26/17 12:26; Start 07/26/17 at 08:45 Vancomycin HCl 1.75 gm/Sodium Chloride 500 ml @ 250 mls/hr 1X ONCE IV Last administered on 07/26/17 09:40; Start 07/26/17 at 09:00; Stop 07/26/17 at 10:59 ; Status DC Vancomycin HCl 1 gm/Sodium Chloride 250 ml @ 250 mls/hr Q18H IV Last administered on 07/27/17 04:09; Start 07/27/17 at 04:00 Vancomycin HCl 1 each 1X ONCE MC ; Start 07/27/17 at 21:30; Stop 07/27/17 at 21 :31 Piperacillin Sod/ Tazobactam Sod 3.375 gm/Sodium Chloride 50 ml @ 100 mls/hr Q6HRS IV Last administered on 9/29/17at 13:20; Start 07/26/17 at 13:00 Active Scripts Active Reported Promethazine Hcl 25 Mg Tablet 25 Mg PO Q6H PRN Levemir Flextouch (Insulin Detemir) 100 Unit/1 Ml Insuln.pen 40 Unit SQ QPM Inject 40 units subcutaneously every night with the evening meal. Meloxicam 15 Mg Tablet 15 Mg PO DAILY Glipizide Xl (Glipizide) 5 Mg Tab.er.24 5 Mg PO DAILY Hydrocodone-Apap 5-325 (Hydrocodone Bit/Acetaminophen) 1 Each Tablet 1 Tab PO PRN Q6HRS PRN Vitamin D3 (Cholecalciferol (Vitamin D3)) 5,000 Unit Tablet 5,000 Unit PO DAILY Crestor (Rosuvastatin Calcium) 40 Mg Tablet 40 Mg PO HS Lexapro (Escitalopram Oxalate) 20 Mg Tablet 20 Mg PO DAILY Gabapentin 300 Mg Capsule 300 Mg PO TID Calcium (Calcium Carbonate) 500 Mg Tablet 500 Mg PO DAILY Zinc (Zinc Gluconate-Zinc Picolinate) 30 Mg Capsule 30 Mg PO Levothyroxine Sodium 50 Mcg Tablet 1 Tab PO DAILY Plavix (Clopidogrel Bisulfate) 75 Mg Tablet 75 Mg PO DAILY Metformin Hcl 1,000 Mg Tablet 1,000 Mg PO BID next dose Sun evening dose 12/22 Allergies Allergies: Coded Allergies: Sulfa (Sulfonamide Antibiotics) (Verified Allergy, Intermediate, Hives, ) itching Physical Exam General: Alert, Cooperative HEENT: Atraumatic Lungs: Normal air movement Heart: Regular rate Abdomen: Soft Extremities: Other (sinus tract at lateral (ORIF) incision. Purulent drainage. No palpable abscess. Some knee joint tenderness but no apparent effusion. Surrounding erythema. Distal NVI. No palpable abscess.) Vitals VITALS Vital Signs Date Time Temp Pulse Resp B/P (MAP) Pulse Ox O2 Delivery O2 Flow Rate FiO2 07/27/17 12:19 95 Room Air 07/27/17 11:10 97.3 94 18 100/49 (66) 97.3 07/26/17 11:40 1.0 Labs Labs Laboratory Tests Test 07/25/17 16:29 07/25/17 17:11 07/25/17 18:40 07/25/17 21:09 Glucose (Fingerstick) 56 mg/dL (70-99) 93 mg/dL (70-99) 109 mg/dL (70-99) 179 mg/dL (70-99) Test 07/26/17 04:20 07/26/17 07:26 07/26/17 11:48 07/26/17 16:40 White Blood Count 8.4 x10^3/uL (4.0-11.0) Red Blood Count 2.77 x10^6/uL (3.50-5.40) Hemoglobin 8.0 g/dL (12.0-15.5) Hematocrit 24.2 % (36.0-47.0) Mean Corpuscular Volume 87 fL (79-100) Mean Corpuscular Hemoglobin 29 pg (25-35) Mean Corpuscular Hemoglobin Concent 33 g/dL (31-37) Red Cell Distribution Width 16.4 % (11.5-14.5) Platelet Count 476 x10^3/uL (140-400) Neutrophils (%) (Auto) 61 % (31-73) Lymphocytes (%) (Auto) 26 % (24-48) Monocytes (%) (Auto) 9 % (0-9) Eosinophils (%) (Auto) 3 % (0-3) Basophils (%) (Auto) 1 % (0-3) Neutrophils # (Auto) 5.1 x10^3uL (1.8-7.7) Lymphocytes # (Auto) 2.2 x10^3/uL (1.0-4.8) Monocytes # (Auto) 0.8 x10^3/uL (0.0-1.1) Eosinophils # (Auto) 0.2 x10^3/uL (0.0-0.7) Basophils # (Auto) 0.1 x10^3/uL (0.0-0.2) Sodium Level 138 mmol/L (136-145) Potassium Level 3.6 mmol/L (3.5-5.1) Chloride Level 98 mmol/L (98-107) Carbon Dioxide Level 34 mmol/L (21-32) Anion Gap 6 (6-14) Blood Urea Nitrogen 6 mg/dL (7-20) Creatinine 0.8 mg/dL (0.6-1.0) Estimated GFR (Cockcroft-Gault) 70.7 BUN/Creatinine Ratio 8 (6-20) Glucose Level 140 mg/dL (70-99) Hemoglobin A1c 5.3 % (4.8-5.6) Calcium Level 8.8 mg/dL (8.5-10.1) Total Bilirubin 0.2 mg/dL (0.2-1.0) Aspartate Amino Transf (AST/SGOT) 27 U/L (15-37) Alanine Aminotransferase (ALT/SGPT) 20 U/L (14-59) Alkaline Phosphatase 125 U/L (46-116) Total Protein 6.9 g/dL (6.4-8.2) Albumin 1.9 g/dL (3.4-5.0) Albumin/Globulin Ratio 0.4 (1.0-1.7) Glucose (Fingerstick) 120 mg/dL (70-99) 146 mg/dL (70-99) 150 mg/dL (70-99) Test 07/26/17 21:28 07/27/17 07:29 07/27/17 11:29 Glucose (Fingerstick) 162 mg/dL (70-99) 91 mg/dL (70-99) 132 mg/dL (70-99) Laboratory Tests Test 07/26/17 16:40 07/26/17 21:28 07/27/17 07:29 07/27/17 11:29 Glucose (Fingerstick) 150 mg/dL (70-99) 162 mg/dL (70-99) 91 mg/dL (70-99) 132 mg/dL (70-99) Images Images x-rays reviewed show ORIF in the same position as office films (trace varus compared to intra-op films). Assessment/Plan Assessment/Plan infected ORIF of femur fracture. Probable contamination of TKA joint. Cultures obtained. Continue antibiotics for now. Complex case. Will likely require plate removal (ideally once the fracture has healed). TKA may need to be removed as well with complex two-stage revision. It does not appear that I&D would be of use at this time but would consider surgery if focal fluid collection develops while on antibiotics. PICC necessary. CYNTHIA HODGE MD Jul 27, 2017 13:35
[2017-07-27] MEDS: VANCOMYCIN PER PHARMACY MC PRN (13:36)
[2017-07-27 15:06] VITALS: BP 106/54
--- NOTE | 2017-07-27 15:15 | PDOC ---
PROGRESS NOTES Chief Complaint Chief Complaint Cellulitis ASSESSMENT AND PLAN: 1. L knee infection: s/p TKR and fracture pinning 10 days ago, staple removal few days ago with retained staple. prelim cult with [facility]. on vanco/zosyn. hardware will have to come out eventually; hopefully can wait until fx stable 2. DM2: fairly well controlled on oral regimen. cont ISS 3. Hypothyroidism: on synthroid. TSH pending 4. HTN/HLD: continue home regimen 5. Hypoalbuminemia: severe, with acute inflammation on chronic malnutrition. Nutrition consult 6. Prophylaxis: heparin SQ History of Present Illness History of Present Illness tired after lunch. pain controlled. knee in brace Vitals Vitals Vital Signs Date Time Temp Pulse Resp B/P (MAP) Pulse Ox O2 Delivery O2 Flow Rate FiO2 07/27/17 12:19 95 Room Air 07/27/17 11:10 97.3 94 18 100/49 (66) 97.3 07/26/17 11:40 1.0 Physical Exam General: Alert, Cooperative Heart: Regular rate Lungs: Clear Abdomen: Soft Extremities: Other (sinus tract at lateral (ORIF) incision. Purulent drainage. Surrounding erythema. ) Skin: Other (redness and pain, weeping open 1.5 cm wound) Labs LABS Laboratory Tests Test 07/26/17 16:40 07/26/17 21:28 07/27/17 07:29 07/27/17 11:29 Glucose (Fingerstick) 150 mg/dL (70-99) 162 mg/dL (70-99) 91 mg/dL (70-99) 132 mg/dL (70-99) LEWIS CASTILLO MD Jul 27, 2017 15:15
[2017-07-27] MEDS: HEPARIN PF for SUB-Q USE 5,000 UNIT/0.5 ML VIAL. SQ SCH ×2 (16:23→22:27)
[2017-07-27] MEDS: HYDROcodone/APAP 5/325MG 1 TAB TABLET PO PRN ×2 (17:31→21:06)
[2017-07-27] MEDS: INSULIN DETEMIR 300 UNITS/3 ML INSULN.PEN. SQ SCH (18:25)
[2017-07-27] MEDS: MORPHINE SULFATE 4 MG/ML DISP.SYRIN. IV PRN ×2 (18:38→23:24)
[2017-07-27 19:00] VITALS: BP 124/51
[2017-07-27] MEDS: ATORVASTATIN CALCIUM 40 MG TABLET. PO SCH (21:05)
[2017-07-27 23:00] VITALS: BP 107/47
[2017-07-28] MEDS: VANCOMYCIN PER PHARMACY MC PRN (00:24)
[2017-07-28] MEDS: PIPERACILLIN/TAZOBACTAM 3.375 GM in IV NORMAL SALINE 50ML 50 ML IV SCH ×4 (00:37→19:33)
[2017-07-28 03:00] VITALS: BP 105/50
[2017-07-28] MEDS: MORPHINE SULFATE 4 MG/ML DISP.SYRIN. IV PRN ×2 (03:49→21:24)
[2017-07-28 05:36] LABS: BASO # 0.1 x10^3/uL (0.0-0.2); BASO % 1 % (0-3); EOS % 6 % (0-3); HEMOGLOBIN 7.4 g/dL (12.0-15.5); LYMPH % 33 % (24-48); MEAN CORPUSCULAR HEMOGLOBIN 29 pg (25-35); MEAN CORPUSCULAR HGB CONC 34 g/dL (31-37); MEAN CORPUSCULAR VOLUME 86 fL (79-100); MONO % 9 % (0-9); NEUT % 50 % (31-73); PLATELET COUNT 478 x10^3/uL (140-400); RED BLOOD COUNT 2.57 x10^6/uL (3.50-5.40); RED CELL DISTRIBUTION WIDTH 16.4 % (11.5-14.5)
[2017-07-28 05:49] LABS: CALCIUM 8.5 mg/dL (8.5-10.1); CREATININE 0.9 mg/dL (0.6-1.0); GFR 61.7
[2017-07-28 05:55] LABS: POTASSIUM 2.9 mmol/L (3.5-5.1)
[2017-07-28] MEDS: LEVOTHYROXINE 50 MCG TABLET PO SCH (06:31)
[2017-07-28] MEDS: HEPARIN PF for SUB-Q USE 5,000 UNIT/0.5 ML VIAL. SQ SCH ×3 (06:39→21:32)
--- NOTE | 2017-07-28 06:50 | PDOC ---
Infectious Disease Note Subjective Subjective pt feeling ok, cont pain ROS ROS GEN: Denies fevers, chills, sweats HEENT: Denies blurred vision, sore throat CV: Denies chest pain RESP: Denies shortness of air, cough GI: Denies n/v/d NEURO: Denies confusion, dizziness MSK: Denies weakness, joint pain/swelling Vital Sign Vital Signs Vital Signs Date Time Temp Pulse Resp B/P (MAP) Pulse Ox O2 Delivery O2 Flow Rate FiO2 07/28/17 04:21 18 Room Air 07/28/17 03:00 98.8 89 105/50 (68) 95 98.8 Physical Exam PHYSICAL EXAM GENERAL: NAD, Alert HEENT: PERRL, OC/OP - dry NECK: Supple, no JVD, no LN LUNGS: Clear HEART: S1S2, no gallop, no murmur ABD: Soft, NT, no organomegaly, no rebound EXT: No edema, no cyanosi. Left knee with dressing and drainage [employer]ESS[employer]: Alert, oriented x 3, no focal neurologic deficit SKIN: No rash IV: PICC RUE - clean Labs Lab Laboratory Tests Test 07/27/17 07:29 07/27/17 11:29 07/27/17 16:44 07/27/17 21:10 Glucose (Fingerstick) 91 mg/dL (70-99) 132 mg/dL (70-99) 128 mg/dL (70-99) Thyroid Stimulating Hormone (TSH) 2.408 uIU/mL (0.358-3.74) Vancomycin Level Trough 12.9 mcg/mL (10.0-20.0) Vancomycin Last Dose Date Vancomycin Last Dose Time Test 07/27/17 21:36 07/28/17 04:55 Glucose (Fingerstick) 163 mg/dL (70-99) White Blood Count 6.0 x10^3/uL (4.0-11.0) Red Blood Count 2.57 x10^6/uL (3.50-5.40) Hemoglobin 7.4 g/dL (12.0-15.5) Hematocrit 22.0 % (36.0-47.0) Mean Corpuscular Volume 86 fL (79-100) Mean Corpuscular Hemoglobin 29 pg (25-35) Mean Corpuscular Hemoglobin Concent 34 g/dL (31-37) Red Cell Distribution Width 16.4 % (11.5-14.5) Platelet Count 478 x10^3/uL (140-400) Neutrophils (%) (Auto) 50 % (31-73) Lymphocytes (%) (Auto) 33 % (24-48) Monocytes (%) (Auto) 9 % (0-9) Eosinophils (%) (Auto) 6 % (0-3) Basophils (%) (Auto) 1 % (0-3) Neutrophils # (Auto) 3.0 x10^3uL (1.8-7.7) Lymphocytes # (Auto) 2.0 x10^3/uL (1.0-4.8) Monocytes # (Auto) 0.6 x10^3/uL (0.0-1.1) Eosinophils # (Auto) 0.4 x10^3/uL (0.0-0.7) Basophils # (Auto) 0.1 x10^3/uL (0.0-0.2) Sodium Level 142 mmol/L (136-145) Potassium Level 2.9 mmol/L (3.5-5.1) Chloride Level 102 mmol/L (98-107) Carbon Dioxide Level 36 mmol/L (21-32) Anion Gap 4 (6-14) Blood Urea Nitrogen 8 mg/dL (7-20) Creatinine 0.9 mg/dL (0.6-1.0) Estimated GFR (Cockcroft-Gault) 61.7 Glucose Level 100 mg/dL (70-99) Calcium Level 8.5 mg/dL (8.5-10.1) Objective Assessment Left knee infection with hardware in place - cont drainage DM CHF Plan Plan of Care vanc and zosyn F/u labs. Sed rate this am culture taken supportive care likely hardware will need to go, may be at a later date KELSEY ABBOTT MD Jul 28, 2017 06:50
[2017-07-28 07:00] VITALS: BP 97/40
[2017-07-28] MEDS: IPRATRPIUM/ALBUTEROL 0.5/2.5MG 3 ML NEBU. NEB SCH ×4 (07:17→19:28)
[2017-07-28] MEDS: INSULIN ASPART 300 UNITS/3 ML INSULN.PEN SQ SCH ×4 (07:30→21:00)
[2017-07-28] MEDS: POLYETHYLENE GLYCOL 3350 17 GM PACKET. PO SCH ×2 (09:00→09:26)
[2017-07-28] MEDS: GABAPENTIN 300 MG CAPSULE. PO SCH ×3 (09:23→21:25)
[2017-07-28] MEDS: MELOXICAM 7.5 MG TABLET PO SCH (09:25)
[2017-07-28] MEDS: CALCIUM CARBONATE 500 MG TABLET PO SCH (09:25)
[2017-07-28] MEDS: CHOLECALCIFEROL (VITAMIN D3) 5,000 UNIT CAPSULE PO SCH (09:25)
[2017-07-28] MEDS: DOCUSATE SODIUM 100 MG CAPSULE. PO SCH (09:25)
[2017-07-28] MEDS: CITALOPRAM 20 MG TABLET. PO SCH (09:33)
[2017-07-28 11:06] VITALS: BP 111/53
[2017-07-28] MEDS ORDERED: POTASSIUM CHLORIDE 20 MEQ TABLET.ER. PO ONE (11:45)
--- NOTE | 2017-07-28 12:34 | PDOC ---
PROGRESS NOTES Chief Complaint Chief Complaint Cellulitis ASSESSMENT AND PLAN: 1. L knee infection: s/p TKR and fracture pinning 10 days ago, staple removal few days ago with retained staple. prelim cult with [facility]. on vanco/zosyn. hardware will have to come out eventually; hopefully can wait until fx stable 2. DM2: fairly well controlled on oral regimen. cont ISS 3. Hypothyroidism: on synthroid. TSH pending 4. HTN/HLD: continue home regimen 5. Hypoalbuminemia: severe, with acute inflammation on chronic malnutrition. Nutrition consult 6. Prophylaxis: heparin SQ History of Present Illness History of Present Illness Patient complaining of pain and frustration with the pain and discomfort from her left leg. Patient sitting in recliner with both legs extended. Patient was not wearing SCDs. Patient very talkative with healthcare team. Vitals Vitals Vital Signs Date Time Temp Pulse Resp B/P (MAP) Pulse Ox O2 Delivery O2 Flow Rate FiO2 07/28/17 11:07 92 Room Air 07/28/17 11:06 97.5 85 16 111/53 (72) 97.5 Physical Exam Physical Exam Left leg extended, tender to palpation, some swelling. LLE warm and tender to palpation as compared to RLE. Hair growth present on both legs. Patient mildly agitated. General: Alert, Oriented X3, Cooperative, mild distress Heart: Regular rate, Other (distant S1 and S2) Lungs: Clear Abdomen: Soft Extremities: No clubbing, No cyanosis (tenderness to palpation in LLE; swelling and warmth present in L leg), Other (sinus tract at lateral (ORIF) incision. Purulent drainage. Surrounding erythema. ) Skin: Other (mild desquamation around incision area. Incision CDI and wound edges approximated. ) Labs LABS Laboratory Tests Test 07/27/17 16:44 07/27/17 21:10 07/27/17 21:36 07/28/17 04:55 Glucose (Fingerstick) 128 mg/dL (70-99) 163 mg/dL (70-99) Thyroid Stimulating Hormone (TSH) 2.408 uIU/mL (0.358-3.74) Vancomycin Level Trough 12.9 mcg/mL (10.0-20.0) Vancomycin Last Dose Date Vancomycin Last Dose Time White Blood Count 6.0 x10^3/uL (4.0-11.0) Red Blood Count 2.57 x10^6/uL (3.50-5.40) Hemoglobin 7.4 g/dL (12.0-15.5) Hematocrit 22.0 % (36.0-47.0) Mean Corpuscular Volume 86 fL (79-100) Mean Corpuscular Hemoglobin 29 pg (25-35) Mean Corpuscular Hemoglobin Concent 34 g/dL (31-37) Red Cell Distribution Width 16.4 % (11.5-14.5) Platelet Count 478 x10^3/uL (140-400) Neutrophils (%) (Auto) 50 % (31-73) Lymphocytes (%) (Auto) 33 % (24-48) Monocytes (%) (Auto) 9 % (0-9) Eosinophils (%) (Auto) 6 % (0-3) Basophils (%) (Auto) 1 % (0-3) Neutrophils # (Auto) 3.0 x10^3uL (1.8-7.7) Lymphocytes # (Auto) 2.0 x10^3/uL (1.0-4.8) Monocytes # (Auto) 0.6 x10^3/uL (0.0-1.1) Eosinophils # (Auto) 0.4 x10^3/uL (0.0-0.7) Basophils # (Auto) 0.1 x10^3/uL (0.0-0.2) Erythrocyte Sedimentation Rate 117 (0-25) Sodium Level 142 mmol/L (136-145) Potassium Level 2.9 mmol/L (3.5-5.1) Chloride Level 102 mmol/L (98-107) Carbon Dioxide Level 36 mmol/L (21-32) Anion Gap 4 (6-14) Blood Urea Nitrogen 8 mg/dL (7-20) Creatinine 0.9 mg/dL (0.6-1.0) Estimated GFR (Cockcroft-Gault) 61.7 Glucose Level 100 mg/dL (70-99) Calcium Level 8.5 mg/dL (8.5-10.1) Test 07/28/17 07:29 07/28/17 11:39 Glucose (Fingerstick) 99 mg/dL (70-99) 104 mg/dL (70-99) Review of Systems Review of Systems Patient mildly distressed. Patient tired. Assessment and Plan Assessmemt and Plan Problems Medical Problems: (1) Foreign body of knee Status: Acute (2) Wound infection Status: Acute ASSESSMENT 1. L knee infection: s/p TKR and fracture pinning 10 days ago, staple removal few days ago with retained staple. prelim cult with GPC. on vanco/zosyn. hardware will have to come out eventually; hopefully can wait until fx stable 2. DM2: fairly well controlled on oral regimen. cont ISS 3. Hypothyroidism: on synthroid. TSH pending 4. HTN/HLD: continue home regimen 5. Hypoalbuminemia: severe, with acute inflammation on chronic malnutrition. Nutrition consult 6. Prophylaxis: heparin SQ Plan: 1. Ordered K+ 2. Will continue checking labs. 3. Continue following recommendation of OT/PT 4. Continue monitoring hemoglobin 5. Continue home meds. Problems: Comment Review of Relevant I have reviewed the following items jeni (where applicable) has been applied. Labs Laboratory Tests Test 07/26/17 16:40 07/26/17 21:28 07/27/17 07:29 07/27/17 11:29 Glucose (Fingerstick) 150 mg/dL (70-99) 162 mg/dL (70-99) 91 mg/dL (70-99) 132 mg/dL (70-99) Test 07/27/17 16:44 07/27/17 21:10 07/27/17 21:36 07/28/17 04:55 Glucose (Fingerstick) 128 mg/dL (70-99) 163 mg/dL (70-99) Thyroid Stimulating Hormone (TSH) 2.408 uIU/mL (0.358-3.74) Vancomycin Level Trough 12.9 mcg/mL (10.0-20.0) Vancomycin Last Dose Date Vancomycin Last Dose Time White Blood Count 6.0 x10^3/uL (4.0-11.0) Red Blood Count 2.57 x10^6/uL (3.50-5.40) Hemoglobin 7.4 g/dL (12.0-15.5) Hematocrit 22.0 % (36.0-47.0) Mean Corpuscular Volume 86 fL (79-100) Mean Corpuscular Hemoglobin 29 pg (25-35) Mean Corpuscular Hemoglobin Concent 34 g/dL (31-37) Red Cell Distribution Width 16.4 % (11.5-14.5) Platelet Count 478 x10^3/uL (140-400) Neutrophils (%) (Auto) 50 % (31-73) Lymphocytes (%) (Auto) 33 % (24-48) Monocytes (%) (Auto) 9 % (0-9) Eosinophils (%) (Auto) 6 % (0-3) Basophils (%) (Auto) 1 % (0-3) Neutrophils # (Auto) 3.0 x10^3uL (1.8-7.7) Lymphocytes # (Auto) 2.0 x10^3/uL (1.0-4.8) Monocytes # (Auto) 0.6 x10^3/uL (0.0-1.1) Eosinophils # (Auto) 0.4 x10^3/uL (0.0-0.7) Basophils # (Auto) 0.1 x10^3/uL (0.0-0.2) Erythrocyte Sedimentation Rate 117 (0-25) Sodium Level 142 mmol/L (136-145) Potassium Level 2.9 mmol/L (3.5-5.1) Chloride Level 102 mmol/L (98-107) Carbon Dioxide Level 36 mmol/L (21-32) Anion Gap 4 (6-14) Blood Urea Nitrogen 8 mg/dL (7-20) Creatinine 0.9 mg/dL (0.6-1.0) Estimated GFR (Cockcroft-Gault) 61.7 Glucose Level 100 mg/dL (70-99) Calcium Level 8.5 mg/dL (8.5-10.1) Test 07/28/17 07:29 07/28/17 11:39 Glucose (Fingerstick) 99 mg/dL (70-99) 104 mg/dL (70-99) Laboratory Tests Test 07/27/17 16:44 07/27/17 21:10 07/27/17 21:36 07/28/17 04:55 Glucose (Fingerstick) 128 mg/dL (70-99) 163 mg/dL (70-99) Thyroid Stimulating Hormone (TSH) 2.408 uIU/mL (0.358-3.74) Vancomycin Level Trough 12.9 mcg/mL (10.0-20.0) Vancomycin Last Dose Date Vancomycin Last Dose Time White Blood Count 6.0 x10^3/uL (4.0-11.0) Red Blood Count 2.57 x10^6/uL (3.50-5.40) Hemoglobin 7.4 g/dL (12.0-15.5) Hematocrit 22.0 % (36.0-47.0) Mean Corpuscular Volume 86 fL (79-100) Mean Corpuscular Hemoglobin 29 pg (25-35) Mean Corpuscular Hemoglobin Concent 34 g/dL (31-37) Red Cell Distribution Width 16.4 % (11.5-14.5) Platelet Count 478 x10^3/uL (140-400) Neutrophils (%) (Auto) 50 % (31-73) Lymphocytes (%) (Auto) 33 % (24-48) Monocytes (%) (Auto) 9 % (0-9) Eosinophils (%) (Auto) 6 % (0-3) Basophils (%) (Auto) 1 % (0-3) Neutrophils # (Auto) 3.0 x10^3uL (1.8-7.7) Lymphocytes # (Auto) 2.0 x10^3/uL (1.0-4.8) Monocytes # (Auto) 0.6 x10^3/uL (0.0-1.1) Eosinophils # (Auto) 0.4 x10^3/uL (0.0-0.7) Basophils # (Auto) 0.1 x10^3/uL (0.0-0.2) Erythrocyte Sedimentation Rate 117 (0-25) Sodium Level 142 mmol/L (136-145) Potassium Level 2.9 mmol/L (3.5-5.1) Chloride Level 102 mmol/L (98-107) Carbon Dioxide Level 36 mmol/L (21-32) Anion Gap 4 (6-14) Blood Urea Nitrogen 8 mg/dL (7-20) Creatinine 0.9 mg/dL (0.6-1.0) Estimated GFR (Cockcroft-Gault) 61.7 Glucose Level 100 mg/dL (70-99) Calcium Level 8.5 mg/dL (8.5-10.1) Test 07/28/17 07:29 07/28/17 11:39 Glucose (Fingerstick) 99 mg/dL (70-99) 104 mg/dL (70-99) Microbiology 07/26/17 Blood Culture - Preliminary, Resulted NO GROWTH AFTER 2 DAYS 07/25/17 Urine Culture - Final, Complete 07/25/17 Urine Culture Result 1 (LARY) - Final, Complete 07/26/17 Anaerobic/Aerobic Culture, Resulted Pending 07/26/17 Anaerobic Culture Result 1 (LARY), Resulted Pending 07/26/17 Aerobic Culture - Final, Resulted 07/26/17 Aerobic Culture Result 1 (LARY) - Final, Resulted Medications Current Medications Acetaminophen/ Hydrocodone Bitart (Lortab 5/325) 1 tab 1X ONCE PO Last administered on 07/25/17 12:23; Start 07/25/17 at 12:00; Stop 07/25/17 at 12:01 ; Status DC Piperacillin Sod/ Tazobactam Sod 4.5 gm/Sodium Chloride 100 ml @ 200 mls/hr 1X ONCE IV Last administered on 07/25/17 12:23; Start 07/25/17 at 12:00; Stop 07/25/17 at 12:29; Status DC Morphine Sulfate 2 mg 1X ONCE IV Last administered on 07/25/17 13:51; Start 07/25/17 at 13:45; Stop 07/25/17 at 13:47; Status DC Potassium Chloride (Klor-Con) 40 meq 1X ONCE PO Last administered on 13:51; Start 07/25/17 at 13:45; Stop 07/25/17 at 13:47; Status DC Ondansetron HCl (Zofran) 4 mg PRN Q8HRS PRN IV NAUSEA/VOMITING; Start 07/25/17 at 14:30; Stop 07/26/17 at 14:29; Status DC Piperacillin Sod/ Tazobactam Sod (Zosyn Per Pharmacy) 1 each PRN DAILY PRN MC SEE COMMENTS; Start 07/25/17 at 16:00; Stop 07/25/17 at 16:24; Status DC Morphine Sulfate (Morphine Ir) 15 mg PRN Q4HRS PRN PO PAIN Last administered on 07/26/17 09:34; Start 07/25/17 at 16:00 Morphine Sulfate 4 mg PRN Q2HR PRN IV PAIN Last administered on 07/28/17 03:49 ; Start 07/25/17 at 16:00 Acetaminophen (Tylenol) 650 mg PRN Q6HRS PRN PO pain; Start 07/25/17 at 16:00 Docusate Sodium (Colace) 100 mg DAILY PO Last administered on 07/28/17 09:25; Start 07/26/17 at 09:00 Polyethylene Glycol (miraLAX PACKET) 17 gm DAILY PO Last administered on 09:35; Start 07/25/17 at 16:00 Dextrose (Dextrose 50%-Water Syringe) 12.5 gm PRN Q15MIN PRN IV SEE COMMENTS; Start 07/25/17 at 16:30; Status Cancel Magnesium Sulfate/ Dextrose 50 ml @ 25 mls/hr 1X ONCE IV Last administered on 07/25/17 18:29; Start 07/25/17 at 17:00; Stop 07/25/17 at 18:59; Status DC Calcium Carbonate/ Glycine (Oscal) 500 mg DAILY PO Last administered on 09:25; Start 07/26/17 at 09:00 Acetaminophen/ Hydrocodone Bitart (Lortab 5/325) 1 tab PRN Q6HRS PRN PO PAIN Last administered on 07/27/17 21:06; Start 07/25/17 at 17:00 Insulin Detemir (Levemir) 20 units QPM SQ Last administered on 07/27/17 18:25 ; Start 07/25/17 at 18:00 Levothyroxine Sodium (Synthroid) 50 mcg DAILY07 PO Last administered on 06:31; Start 07/26/17 at 07:00 Metformin HCl (Glucophage) 1,000 mg BIDWMEALS PO Last administered on 09:23; Start 07/25/17 at 17:00 Vitamin D (Vitamin D3) 5,000 unit DAILY PO Last administered on 07/28/17 09:25 ; Start 07/26/17 at 09:00 Citalopram Hydrobromide (CeleXA) 40 mg DAILY PO Last administered on 07/28/17 09:33; Start 07/26/17 at 09:00 Gabapentin (Neurontin) 300 mg TID PO Last administered on 07/28/17 09:23; Start 07/25/17 at 21:00 Meloxicam (Mobic) 15 mg DAILY PO Last administered on 07/28/17 09:25; Start at 09:00 Atorvastatin Calcium (Lipitor) 80 mg QHS PO Last administered on 07/27/17 21: 05; Start 07/25/17 at 21:00 Insulin Aspart (NovoLOG) 0-7 UNITS QIDACHS SQ ; Start 07/25/17 at 21:00 Dextrose (Dextrose 50%-Water Syringe) 12.5 gm PRN Q15MIN PRN IV SEE COMMENTS; Start 07/25/17 at 17:00 Albuterol/ Ipratropium (Duoneb) 3 ml RTQID NEB Last administered on 07/28/17 11:07; Start 07/25/17 at 20:00 Info (Do NOT chart on this placeholder) 1 each PRN 1X PRN MC SEE COMMENTS; Start 07/25/17 at 20:15; Status UNV Influenza Virus Vaccine Quadrival (Fluarix Quad 2957-7139 Syringe) 0.5 ml ONCE ONCE VAX IM Last administered on 07/26/17 09:42; Start 07/26/17 at 09:00; Stop 07/26/17 at 09:01; Status DC Vancomycin HCl (Vanco Per Pharmacy) 1 each PRN DAILY PRN MC SEE COMMENTS Last administered on 07/28/17 00:24; Start 07/26/17 at 08:45 Vancomycin HCl 1.75 gm/Sodium Chloride 500 ml @ 250 mls/hr 1X ONCE IV Last administered on 07/26/17 09:40; Start 07/26/17 at 09:00; Stop 07/26/17 at 10:59 ; Status DC Vancomycin HCl 1 gm/Sodium Chloride 250 ml @ 250 mls/hr Q18H IV Last administered on 07/27/17 22:17; Start 07/27/17 at 04:00 Vancomycin HCl 1 each 1X ONCE MC Last administered on 07/27/17 21:10; Start 07/27/17 at 21:30; Stop 07/27/17 at 21:31; Status DC Piperacillin Sod/ Tazobactam Sod 3.375 gm/Sodium Chloride 50 ml @ 100 mls/hr Q6HRS IV Last administered on 07/28/17 06:34; Start 07/26/17 at 13:00 Heparin Sodium (Porcine) (Heparin Sq) 5,000 unit Q8HRS SQ Last administered on 07/28/17t 06:39; Start 07/27/17 at 16:00 Potassium Chloride (Klor-Con) 40 meq 1X ONCE PO ; Start 07/28/17 at 11:45; Stop 07/28/17 at 11:46; Status DC Active Scripts Active Reported Promethazine Hcl 25 Mg Tablet 25 Mg PO Q6H PRN Levemir Flextouch (Insulin Detemir) 100 Unit/1 Ml Insuln.pen 40 Unit SQ QPM Inject 40 units subcutaneously every night with the evening meal. Meloxicam 15 Mg Tablet 15 Mg PO DAILY Glipizide Xl (Glipizide) 5 Mg Tab.er.24 5 Mg PO DAILY Hydrocodone-Apap 5-325 (Hydrocodone Bit/Acetaminophen) 1 Each Tablet 1 Tab PO PRN Q6HRS PRN Vitamin D3 (Cholecalciferol (Vitamin D3)) 5,000 Unit Tablet 5,000 Unit PO DAILY Crestor (Rosuvastatin Calcium) 40 Mg Tablet 40 Mg PO HS Lexapro (Escitalopram Oxalate) 20 Mg Tablet 20 Mg PO DAILY Gabapentin 300 Mg Capsule 300 Mg PO TID Calcium (Calcium Carbonate) 500 Mg Tablet 500 Mg PO DAILY Zinc (Zinc Gluconate-Zinc Picolinate) 30 Mg Capsule 30 Mg PO Levothyroxine Sodium 50 Mcg Tablet 1 Tab PO DAILY Plavix (Clopidogrel Bisulfate) 75 Mg Tablet 75 Mg PO DAILY Metformin Hcl 1,000 Mg Tablet 1,000 Mg PO BID next dose Wed evening dose 12/22 Vitals/I & O Vital Sign - Last 24 Hours 07/27/17 07/27/17 07/27/17 07/27/17 15:06 15:40 17:31 18:36 Temp 97.0 97.0 Pulse 89 Resp 20 B/P (MAP) 106/54 (71) Pulse Ox 96 95 95 95 O2 Delivery Room Air Room Air Room Air 07/27/17 07/27/17 07/27/17 07/27/17 18:38 19:00 19:10 20:00 Temp 97.6 97.6 Pulse 95 Resp 19 B/P (MAP) 124/51 (75) Pulse Ox 95 93 95 O2 Delivery Room Air Room Air Room Air 9/2907/27/17 07/27/17 07/27/17 20:45 21:06 22:10 23:00 Temp 97.7 97.7 Pulse 103 Resp 18 18 19 B/P (MAP) 107/47 (67) Pulse Ox 96 96 O2 Delivery Room Air Room Air Room Air Room Air 07/27/17 07/28/17 07/28/17 07/28/17 23:24 03:00 03:49 04:21 Temp 98.8 98.8 Pulse 89 Resp 18 19 16 18 B/P (MAP) 105/50 (68) Pulse Ox 95 O2 Delivery Room Air Room Air Room Air Room Air 07/28/17 07/28/17 07/28/17 07/28/17 07:00 07:17 08:55 11:06 Temp 96.8 97.5 96.8 97.5 Pulse 83 85 Resp 16 16 B/P (MAP) 97/40 (59) 111/53 (72) Pulse Ox 92 92 92 O2 Delivery Room Air Room Air Room Air Room Air 07/28/17 11:07 Pulse Ox 92 O2 Delivery Room Air ANN SMILEY III DO Jul 28, 2017 12:34
[2017-07-28 15:00] VITALS: BP 112/54
[2017-07-28] MEDS: VANCOMYCIN 1 GM in IV NORMAL SALINE 250ML 250 ML IV SCH (16:45)
[2017-07-28] MEDS: INSULIN DETEMIR 300 UNITS/3 ML INSULN.PEN. SQ SCH (17:13)
[2017-07-28 19:00] VITALS: BP 122/58
[2017-07-28] MEDS: HYDROcodone/APAP 5/325MG 1 TAB TABLET PO PRN (19:33)
[2017-07-28] MEDS: ATORVASTATIN CALCIUM 40 MG TABLET. PO SCH (21:25)
[2017-07-28 23:00] VITALS: BP 119/51
[2017-07-29 03:00] VITALS: BP 118/61
[2017-07-29] MEDS: LEVOTHYROXINE 50 MCG TABLET PO SCH (05:45)
[2017-07-29] MEDS: PIPERACILLIN/TAZOBACTAM 3.375 GM in IV NORMAL SALINE 50ML 50 ML IV SCH ×6 (05:45→23:31)
[2017-07-29] MEDS: HEPARIN PF for SUB-Q USE 5,000 UNIT/0.5 ML VIAL. SQ SCH ×3 (05:51→23:36)
[2017-07-29] MEDS: IPRATRPIUM/ALBUTEROL 0.5/2.5MG 3 ML NEBU. NEB SCH ×4 (06:47→20:21)
[2017-07-29 07:00] VITALS: BP 124/47
[2017-07-29] MEDS: INSULIN ASPART 300 UNITS/3 ML INSULN.PEN SQ SCH ×4 (07:30→21:00)
[2017-07-29] MEDS: DOCUSATE SODIUM 100 MG CAPSULE. PO SCH (08:04)
[2017-07-29] MEDS: GABAPENTIN 300 MG CAPSULE. PO SCH ×3 (08:04→23:31)
[2017-07-29] MEDS: CHOLECALCIFEROL (VITAMIN D3) 5,000 UNIT CAPSULE PO SCH (08:04)
[2017-07-29] MEDS: CALCIUM CARBONATE 500 MG TABLET PO SCH (08:05)
[2017-07-29] MEDS: CITALOPRAM 20 MG TABLET. PO SCH (08:14)
[2017-07-29] MEDS: POLYETHYLENE GLYCOL 3350 17 GM PACKET. PO SCH (08:14)
[2017-07-29] MEDS: MELOXICAM 7.5 MG TABLET PO SCH (08:14)
--- NOTE | 2017-07-29 09:36 | PDOC ---
Infectious Disease Note Subjective Subjective c/o left knee pain ROS ROS GEN: Denies fevers, chills, sweats CV: Denies chest pain RESP: Denies shortness of air, cough GI: Denies n/v/d Vital Sign Vital Signs Vital Signs Date Time Temp Pulse Resp B/P (MAP) Pulse Ox O2 Delivery O2 Flow Rate FiO2 07/29/17 08:00 Room Air 07/29/17 07:00 98.5 94 16 124/47 (72) 89 98.5 Physical Exam PHYSICAL EXAM GENERAL: Sleeping, arouses easily to name HEENT: OC/OP pink LUNGS: Clear HEART: S1 and S2, + murmur ABD: Soft, NT EXT: No edema, no cyanosis. 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 clean Labs Lab Laboratory Tests Test 07/28/17 11:39 07/28/17 16:04 07/28/17 21:03 07/29/17 07:36 Glucose (Fingerstick) 104 mg/dL (70-99) 177 mg/dL (70-99) 162 mg/dL (70-99) 93 mg/dL (70-99) Micro Left knee ANAEROBIC-AEROBIC CULTURE PENDING ANAEROBIC RES 1 PENDING AEROBIC CULT Final Final report AEROBIC RES 1 Final Mixed skin herlinda BLOOD CULTURE Preliminary NO GROWTH AFTER 3 DAYS Objective Assessment Left knee infection with hardware in place, + drainage - cx: mixed herlinda -s/p left TKA 06/26 Comminuted fracture of the distal femur s/p ORIF 07/11 DM CHF Plan Plan of Care vanc and Zosyn Sed rate 117 F/u labs. supportive care likely hardware will need to go, may be at a later date Attending Co-Sign Attending Co-Sign The patient was seen and interviewed as well as examined at the bedside. The chart was reviewed. The case was discussed. Agree with the plan of care. TAYE SHELTON APRN Jul 29, 2017 09:36 KELSEY ABBOTT MD Jul 29, 2017 13:41
[2017-07-29 10:00] VITALS: BP 114/66
[2017-07-29] MEDS: HYDROcodone/APAP 5/325MG 1 TAB TABLET PO PRN (11:13)
[2017-07-29] MEDS: VANCOMYCIN 1 GM in IV NORMAL SALINE 250ML 250 ML IV SCH (11:13)
[2017-07-29] MEDS: MORPHINE IR 15 MG TABLET PO PRN (11:14)
--- NOTE | 2017-07-29 12:13 | PDOC ---
PROGRESS NOTES Chief Complaint Chief Complaint Cellulitis ASSESSMENT AND PLAN: 1. L knee infection: s/p TKR and fracture pinning 10 days ago, staple removal few days ago with retained staple. prelim cult with [facility]. on vanco/zosyn. hardware will have to come out eventually; hopefully can wait until fx stable 2. DM2: fairly well controlled on oral regimen. cont ISS 3. Hypothyroidism: on synthroid. TSH pending 4. HTN/HLD: continue home regimen 5. Hypoalbuminemia: severe, with acute inflammation on chronic malnutrition. Nutrition consult 6. Prophylaxis: heparin SQ History of Present Illness History of Present Illness Patient reclining in bed when team arrived. Patient expressed her frustration with the infection. Left knee bandage clean, dry and intact. Vitals Vitals Vital Signs Date Time Temp Pulse Resp B/P (MAP) Pulse Ox O2 Delivery O2 Flow Rate FiO2 07/29/17 11:14 20 Room Air 07/29/17 10:00 97.7 91 114/66 (82) 94 97.7 Physical Exam Physical Exam Left leg extended, tender to palpation, some swelling. LLE warm and tender to palpation as compared to RLE. Hair growth present on both legs. Patient expressed frustration with condition of her knee. General: Alert, Oriented X3, Cooperative, mild distress Heart: Regular rate, Other (distant S1 and S2) Lungs: Clear Abdomen: Soft Extremities: No clubbing, No cyanosis (tenderness to palpation in LLE; swelling and warmth present in L leg), Other (sinus tract at lateral (ORIF) incision. Purulent drainage. Surrounding erythema. ) Skin: Other (mild desquamation around incision area. Incision CDI and wound edges approximated. ) Labs LABS Laboratory Tests Test 07/28/17 16:04 07/28/17 21:03 07/29/17 07:36 07/29/17 11:06 Glucose (Fingerstick) 177 mg/dL (70-99) 162 mg/dL (70-99) 93 mg/dL (70-99) 95 mg/dL (70-99) Review of Systems Review of Systems Patient tired and hungry. Assessment and Plan Assessmemt and Plan Problems Medical Problems: (1) Foreign body of knee Status: Acute (2) Wound infection Status: Acute ASSESSMENT AND PLAN: 1. L knee infection: s/p TKR and fracture pinning 10 days ago, staple removal few days ago with retained staple. prelim cult with [facility]. on vanco/zosyn. hardware will have to come out eventually; hopefully can wait until fx stable 2. DM2: fairly well controlled on oral regimen. cont ISS 3. Hypothyroidism: on synthroid. TSH pending 4. HTN/HLD: continue home regimen 5. Hypoalbuminemia: severe, with acute inflammation on chronic malnutrition. Nutrition consult 6. Prophylaxis: heparin SQ Plan: 1. Ordered BMP and CBC 2. Continue home medication 3. Continue OT/PT 4. plan for removal of foreign body in left knee? 5. Continue ADA diet Problems: Comment Review of Relevant I have reviewed the following items jeni (where applicable) has been applied. Labs Laboratory Tests Test 07/27/17 16:44 07/27/17 21:10 07/27/17 21:36 07/28/17 04:55 Glucose (Fingerstick) 128 mg/dL (70-99) 163 mg/dL (70-99) Thyroid Stimulating Hormone (TSH) 2.408 uIU/mL (0.358-3.74) Vancomycin Level Trough 12.9 mcg/mL (10.0-20.0) Vancomycin Last Dose Date Vancomycin Last Dose Time White Blood Count 6.0 x10^3/uL (4.0-11.0) Red Blood Count 2.57 x10^6/uL (3.50-5.40) Hemoglobin 7.4 g/dL (12.0-15.5) Hematocrit 22.0 % (36.0-47.0) Mean Corpuscular Volume 86 fL (79-100) Mean Corpuscular Hemoglobin 29 pg (25-35) Mean Corpuscular Hemoglobin Concent 34 g/dL (31-37) Red Cell Distribution Width 16.4 % (11.5-14.5) Platelet Count 478 x10^3/uL (140-400) Neutrophils (%) (Auto) 50 % (31-73) Lymphocytes (%) (Auto) 33 % (24-48) Monocytes (%) (Auto) 9 % (0-9) Eosinophils (%) (Auto) 6 % (0-3) Basophils (%) (Auto) 1 % (0-3) Neutrophils # (Auto) 3.0 x10^3uL (1.8-7.7) Lymphocytes # (Auto) 2.0 x10^3/uL (1.0-4.8) Monocytes # (Auto) 0.6 x10^3/uL (0.0-1.1) Eosinophils # (Auto) 0.4 x10^3/uL (0.0-0.7) Basophils # (Auto) 0.1 x10^3/uL (0.0-0.2) Erythrocyte Sedimentation Rate 117 (0-25) Sodium Level 142 mmol/L (136-145) Potassium Level 2.9 mmol/L (3.5-5.1) Chloride Level 102 mmol/L (98-107) Carbon Dioxide Level 36 mmol/L (21-32) Anion Gap 4 (6-14) Blood Urea Nitrogen 8 mg/dL (7-20) Creatinine 0.9 mg/dL (0.6-1.0) Estimated GFR (Cockcroft-Gault) 61.7 Glucose Level 100 mg/dL (70-99) Calcium Level 8.5 mg/dL (8.5-10.1) Test 07/28/17 07:29 07/28/17 11:39 07/28/17 16:04 07/28/17 21:03 Glucose (Fingerstick) 99 mg/dL (70-99) 104 mg/dL (70-99) 177 mg/dL (70-99) 162 mg/dL (70-99) Test 07/29/17 07:36 07/29/17 11:06 Glucose (Fingerstick) 93 mg/dL (70-99) 95 mg/dL (70-99) Laboratory Tests Test 07/28/17 16:04 07/28/17 21:03 07/29/17 07:36 07/29/17 11:06 Glucose (Fingerstick) 177 mg/dL (70-99) 162 mg/dL (70-99) 93 mg/dL (70-99) 95 mg/dL (70-99) Microbiology 07/26/17 Blood Culture - Preliminary, Resulted NO GROWTH AFTER 3 DAYS 07/25/17 Urine Culture - Final, Complete 07/25/17 Urine Culture Result 1 (LARY) - Final, Complete 07/26/17 Anaerobic/Aerobic Culture, Resulted Pending 07/26/17 Anaerobic Culture Result 1 (LARY), Resulted Pending 07/26/17 Aerobic Culture - Final, Resulted 07/26/17 Aerobic Culture Result 1 (LARY) - Final, Resulted Medications Current Medications Acetaminophen/ Hydrocodone Bitart (Lortab 5/325) 1 tab 1X ONCE PO Last administered on 07/25/17 12:23; Start 07/25/17 at 12:00; Stop 07/25/17 at 12:01 ; Status DC Piperacillin Sod/ Tazobactam Sod 4.5 gm/Sodium Chloride 100 ml @ 200 mls/hr 1X ONCE IV Last administered on 07/25/17 12:23; Start 07/25/17 at 12:00; Stop 07/25/17 at 12:29; Status DC Morphine Sulfate 2 mg 1X ONCE IV Last administered on 07/25/17 13:51; Start 07/25/17 at 13:45; Stop 07/25/17 at 13:47; Status DC Potassium Chloride (Klor-Con) 40 meq 1X ONCE PO Last administered on 13:51; Start 07/25/17 at 13:45; Stop 07/25/17 at 13:47; Status DC Ondansetron HCl (Zofran) 4 mg PRN Q8HRS PRN IV NAUSEA/VOMITING; Start 07/25/17 at 14:30; Stop 07/26/17 at 14:29; Status DC Piperacillin Sod/ Tazobactam Sod (Zosyn Per Pharmacy) 1 each PRN DAILY PRN MC SEE COMMENTS; Start 07/25/17 at 16:00; Stop 07/25/17 at 16:24; Status DC Morphine Sulfate (Morphine Ir) 15 mg PRN Q4HRS PRN PO PAIN Last administered on 07/29/17 11:14; Start 07/25/17 at 16:00 Morphine Sulfate 4 mg PRN Q2HR PRN IV PAIN Last administered on 07/28/17 21:24 ; Start 07/25/17 at 16:00 Acetaminophen (Tylenol) 650 mg PRN Q6HRS PRN PO pain; Start 07/25/17 at 16:00 Docusate Sodium (Colace) 100 mg DAILY PO Last administered on 07/29/17 08:04; Start 07/26/17 at 09:00 Polyethylene Glycol (miraLAX PACKET) 17 gm DAILY PO Last administered on 09:35; Start 07/25/17 at 16:00 Dextrose (Dextrose 50%-Water Syringe) 12.5 gm PRN Q15MIN PRN IV SEE COMMENTS; Start 07/25/17 at 16:30; Status Cancel Magnesium Sulfate/ Dextrose 50 ml @ 25 mls/hr 1X ONCE IV Last administered on 07/25/17 18:29; Start 07/25/17 at 17:00; Stop 07/25/17 at 18:59; Status DC Calcium Carbonate/ Glycine (Oscal) 500 mg DAILY PO Last administered on 08:05; Start 07/26/17 at 09:00 Acetaminophen/ Hydrocodone Bitart (Lortab 5/325) 1 tab PRN Q6HRS PRN PO PAIN Last administered on 07/29/17 11:13; Start 07/25/17 at 17:00 Insulin Detemir (Levemir) 20 units QPM SQ Last administered on 07/28/17 17:13 ; Start 07/25/17 at 18:00 Levothyroxine Sodium (Synthroid) 50 mcg DAILY07 PO Last administered on 05:45; Start 07/26/17 at 07:00 Metformin HCl (Glucophage) 1,000 mg BIDWMEALS PO Last administered on 08:04; Start 07/25/17 at 17:00 Vitamin D (Vitamin D3) 5,000 unit DAILY PO Last administered on 07/29/17 08:04 ; Start 07/26/17 at 09:00 Citalopram Hydrobromide (CeleXA) 40 mg DAILY PO Last administered on 07/29/17 08:14; Start 07/26/17 at 09:00 Gabapentin (Neurontin) 300 mg TID PO Last administered on 07/29/17 08:12; Start 07/25/17 at 21:00 Meloxicam (Mobic) 15 mg DAILY PO Last administered on 07/29/17 08:14; Start at 09:00 Atorvastatin Calcium (Lipitor) 80 mg QHS PO Last administered on 07/28/17 21: 25; Start 07/25/17 at 21:00 Insulin Aspart (NovoLOG) 0-7 UNITS QIDACHS SQ Last administered on 07/28/17 17 :12; Start 07/25/17 at 21:00 Dextrose (Dextrose 50%-Water Syringe) 12.5 gm PRN Q15MIN PRN IV SEE COMMENTS; Start 07/25/17 at 17:00 Albuterol/ Ipratropium (Duoneb) 3 ml RTQID NEB Last administered on 07/29/17 10:48; Start 07/25/17 at 20:00 Info (Do NOT chart on this placeholder) 1 each PRN 1X PRN MC SEE COMMENTS; Start 07/25/17 at 20:15; Status UNV Influenza Virus Vaccine Quadrival (Fluarix Quad [id number] Syringe) 0.5 ml ONCE ONCE VAX IM Last administered on 07/26/17 09:42; Start 07/26/17 at 09:00; Stop 07/26/17 at 09:01; Status DC Vancomycin HCl (Vanco Per Pharmacy) 1 each PRN DAILY PRN MC SEE COMMENTS Last administered on 07/28/17 00:24; Start 07/26/17 at 08:45 Vancomycin HCl 1.75 gm/Sodium Chloride 500 ml @ 250 mls/hr 1X ONCE IV Last administered on 07/26/17 09:40; Start 07/26/17 at 09:00; Stop 07/26/17 at 10:59 ; Status DC Vancomycin HCl 1 gm/Sodium Chloride 250 ml @ 250 mls/hr Q18H IV Last administered on 07/29/17 11:13; Start 07/27/17 at 04:00 Vancomycin HCl 1 each 1X ONCE MC Last administered on 07/27/17 21:10; Start 07/27/17 at 21:30; Stop 07/27/17 at 21:31; Status DC Piperacillin Sod/ Tazobactam Sod 3.375 gm/Sodium Chloride 50 ml @ 100 mls/hr Q6HRS IV Last administered on 07/29/17 05:45; Start 07/26/17 at 13:00 Heparin Sodium (Porcine) (Heparin Sq) 5,000 unit Q8HRS SQ Last administered on 07/29/17 05:51; Start 07/27/17 at 16:00 Potassium Chloride (Klor-Con) 40 meq 1X ONCE PO Last administered on 12:50; Start 07/28/17 at 11:45; Stop 07/28/17 at 11:46; Status DC Active Scripts Active Reported Promethazine Hcl 25 Mg Tablet 25 Mg PO Q6H PRN Levemir Flextouch (Insulin Detemir) 100 Unit/1 Ml Insuln.pen 40 Unit SQ QPM Inject 40 units subcutaneously every night with the evening meal. Meloxicam 15 Mg Tablet 15 Mg PO DAILY Glipizide Xl (Glipizide) 5 Mg Tab.er.24 5 Mg PO DAILY Hydrocodone-Apap 5-325 (Hydrocodone Bit/Acetaminophen) 1 Each Tablet 1 Tab PO PRN Q6HRS PRN Vitamin D3 (Cholecalciferol (Vitamin D3)) 5,000 Unit Tablet 5,000 Unit PO DAILY Crestor (Rosuvastatin Calcium) 40 Mg Tablet 40 Mg PO HS Lexapro (Escitalopram Oxalate) 20 Mg Tablet 20 Mg PO DAILY Gabapentin 300 Mg Capsule 300 Mg PO TID Calcium (Calcium Carbonate) 500 Mg Tablet 500 Mg PO DAILY Zinc (Zinc Gluconate-Zinc Picolinate) 30 Mg Capsule 30 Mg PO Levothyroxine Sodium 50 Mcg Tablet 1 Tab PO DAILY Plavix (Clopidogrel Bisulfate) 75 Mg Tablet 75 Mg PO DAILY Metformin Hcl 1,000 Mg Tablet 1,000 Mg PO BID next dose Wed evening dose 12/22 Vitals/I & O Vital Sign - Last 24 Hours 07/28/17 07/28/17 07/28/17 07/28/17 15:00 15:58 19:00 19:28 Temp 97.6 98.2 97.6 98.2 Pulse 83 102 Resp 18 22 B/P (MAP) 112/54 (73) 122/58 (79) Pulse Ox 93 94 O2 Delivery Room Air Room Air Room Air 07/28/17 07/28/17 07/29/17 07/29/17 20:00 23:00 03:00 06:48 Temp 98.7 98.2 98.7 98.2 Pulse 98 99 Resp 18 18 B/P (MAP) 119/51 (73) 118/61 (80) Pulse Ox 93 94 94 O2 Delivery Room Air Room Air 07/29/17 07/29/17 07/29/17 07/29/17 07:00 08:00 10:00 10:50 Temp 98.5 97.7 98.5 97.7 Pulse 94 91 Resp 16 18 B/P (MAP) 124/47 (72) 114/66 (82) Pulse Ox 89 94 O2 Delivery Room Air Room Air Room Air Room Air 07/29/17 07/29/17 11:13 11:14 Resp 20 20 O2 Delivery Room Air Room Air ANN SMILEY III DO Jul 29, 2017 12:13
[2017-07-29] MEDS: VANCOMYCIN PER PHARMACY MC PRN (12:16)
[2017-07-29 13:27] LABS: BASO # 0.1 x10^3/uL (0.0-0.2); BASO % 1 % (0-3); EOS % 3 % (0-3); HEMATOCRIT 24.4 % (36.0-47.0); HEMOGLOBIN 7.9 g/dL (12.0-15.5); LYMPH # 1.9 x10^3/uL (1.0-4.8); LYMPH % 20 % (24-48); MEAN CORPUSCULAR HEMOGLOBIN 28 pg (25-35); MEAN CORPUSCULAR HGB CONC 32 g/dL (31-37); MEAN CORPUSCULAR VOLUME 88 fL (79-100); MONO % 9 % (0-9); NEUT % 67 % (31-73); PLATELET COUNT 453 x10^3/uL (140-400); RED BLOOD COUNT 2.78 x10^6/uL (3.50-5.40); RED CELL DISTRIBUTION WIDTH 16.6 % (11.5-14.5); WHITE BLOOD COUNT 9.4 x10^3/uL (4.0-11.0)
[2017-07-29 13:43] LABS: CREATININE 1.4 mg/dL (0.6-1.0); GFR 37.1; POTASSIUM 4.4 mmol/L (3.5-5.1)
[2017-07-29 15:00] VITALS: BP 107/51
[2017-07-29] MEDS: ACETAMINOPHEN 325 MG TABLET. PO PRN (16:31)
[2017-07-29] MEDS: MORPHINE SULFATE 4 MG/ML DISP.SYRIN. IV PRN (17:41)
[2017-07-29] MEDS: INSULIN DETEMIR 300 UNITS/3 ML INSULN.PEN. SQ SCH (18:00)
[2017-07-29 19:00] VITALS: BP 100/56
[2017-07-29 23:30] VITALS: BP 123/62
[2017-07-29] MEDS: ATORVASTATIN CALCIUM 40 MG TABLET. PO SCH (23:31)
[2017-07-30] MEDS: VANCOMYCIN 1 GM in IV NORMAL SALINE 250ML 250 ML IV SCH ×2 (04:00→21:57)
[2017-07-30] MEDS: PIPERACILLIN/TAZOBACTAM 3.375 GM in IV NORMAL SALINE 50ML 50 ML IV SCH ×3 (05:59→17:14)
[2017-07-30] MEDS: LEVOTHYROXINE 50 MCG TABLET PO SCH (05:59)
[2017-07-30] MEDS: HEPARIN PF for SUB-Q USE 5,000 UNIT/0.5 ML VIAL. SQ SCH ×3 (06:00→21:59)
[2017-07-30 07:00] VITALS: BP 146/66
[2017-07-30] MEDS: INSULIN ASPART 300 UNITS/3 ML INSULN.PEN SQ SCH ×4 (07:30→21:00)
[2017-07-30 08:47] LABS: CALCIUM 8.1 mg/dL (8.5-10.1); CREATININE 1.2 mg/dL (0.6-1.0); GFR 44.3
[2017-07-30] MEDS: CHOLECALCIFEROL (VITAMIN D3) 5,000 UNIT CAPSULE PO SCH (09:00)
[2017-07-30] MEDS: POLYETHYLENE GLYCOL 3350 17 GM PACKET. PO SCH (09:00)
--- NOTE | 2017-07-30 09:05 | PDOC ---
Infectious Disease Note Subjective Subjective not sure how she is doing today no gross pain Ate some ROS ROS GEN: Denies fevers, chills, sweats HEENT: Denies blurred vision, sore throat CV: Denies chest pain RESP: Denies shortness of air, cough GI: Denies n/v/d NEURO: Denies confusion, dizziness MSK: Denies weakness, joint pain/swelling Vital Sign Vital Signs Vital Signs Date Time Temp Pulse Resp B/P (MAP) Pulse Ox O2 Delivery O2 Flow Rate FiO2 07/30/17 07:00 97.9 88 18 146/66 (92) 91 Room Air 97.9 Physical Exam PHYSICAL EXAM GENERAL: NAD, Alert HEENT: PERRL, OC/OP -clear NECK: Supple, no JVD, no LN LUNGS: Clear HEART: S1S2, no gallop, no murmur ABD: Soft, NT, obese, no rebound EXT: No edema, no cyanosis. Wound dressing is clean and dry, Min drainage [employer]SEM[employer]: Alert, oriented x 3, no focal neurologic deficit SKIN: No rash IV: PICC -clear Labs Lab Laboratory Tests Test 07/29/17 11:06 07/29/17 13:10 07/29/17 16:26 07/29/17 20:59 Glucose (Fingerstick) 95 mg/dL (70-99) 105 mg/dL (70-99) 122 mg/dL (70-99) White Blood Count 9.4 x10^3/uL (4.0-11.0) Red Blood Count 2.78 x10^6/uL (3.50-5.40) Hemoglobin 7.9 g/dL (12.0-15.5) Hematocrit 24.4 % (36.0-47.0) Mean Corpuscular Volume 88 fL (79-100) Mean Corpuscular Hemoglobin 28 pg (25-35) Mean Corpuscular Hemoglobin Concent 32 g/dL (31-37) Red Cell Distribution Width 16.6 % (11.5-14.5) Platelet Count 453 x10^3/uL (140-400) Neutrophils (%) (Auto) 67 % (31-73) Lymphocytes (%) (Auto) 20 % (24-48) Monocytes (%) (Auto) 9 % (0-9) Eosinophils (%) (Auto) 3 % (0-3) Basophils (%) (Auto) 1 % (0-3) Neutrophils # (Auto) 6.3 x10^3uL (1.8-7.7) Lymphocytes # (Auto) 1.9 x10^3/uL (1.0-4.8) Monocytes # (Auto) 0.8 x10^3/uL (0.0-1.1) Eosinophils # (Auto) 0.3 x10^3/uL (0.0-0.7) Basophils # (Auto) 0.1 x10^3/uL (0.0-0.2) Sodium Level 141 mmol/L (136-145) Potassium Level 4.4 mmol/L (3.5-5.1) Chloride Level 103 mmol/L (98-107) Carbon Dioxide Level 30 mmol/L (21-32) Anion Gap 8 (6-14) Blood Urea Nitrogen 7 mg/dL (7-20) Creatinine 1.4 mg/dL (0.6-1.0) Estimated GFR (Cockcroft-Gault) 37.1 Glucose Level 109 mg/dL (70-99) Calcium Level 9.0 mg/dL (8.5-10.1) Test 07/30/17 07:38 07/30/17 08:31 Glucose (Fingerstick) 86 mg/dL (70-99) Sodium Level 140 mmol/L (136-145) Potassium Level 4.0 mmol/L (3.5-5.1) Chloride Level 103 mmol/L (98-107) Carbon Dioxide Level 31 mmol/L (21-32) Anion Gap 6 (6-14) Blood Urea Nitrogen 9 mg/dL (7-20) Creatinine 1.2 mg/dL (0.6-1.0) Estimated GFR (Cockcroft-Gault) 44.3 Glucose Level 116 mg/dL (70-99) Calcium Level 8.1 mg/dL (8.5-10.1) Objective Assessment Left knee infection with hardware in place - drainage has slowed anemia DM CHF Plan Plan of Care vanc and Zosyn will need treatment for 4 to 6 weeks and will likely need hardware removal at a later date Sed rate 117 Anemia per primary F/u labs. Await Ortho f/u KELSEY ABBOTT MD Jul 30, 2017 09:05
[2017-07-30] MEDS: IPRATRPIUM/ALBUTEROL 0.5/2.5MG 3 ML NEBU. NEB SCH ×4 (09:47→20:12)
[2017-07-30] MEDS: DOCUSATE SODIUM 100 MG CAPSULE. PO SCH (10:04)
[2017-07-30] MEDS: MELOXICAM 7.5 MG TABLET PO SCH (10:04)
[2017-07-30] MEDS: CITALOPRAM 20 MG TABLET. PO SCH (10:04)
[2017-07-30] MEDS: CALCIUM CARBONATE 500 MG TABLET PO SCH (10:04)
[2017-07-30] MEDS: GABAPENTIN 300 MG CAPSULE. PO SCH ×3 (10:05→21:05)
[2017-07-30] MEDS: VANCOMYCIN PER PHARMACY MC PRN (10:22)
[2017-07-30 11:00] VITALS: BP 123/55
[2017-07-30 15:00] VITALS: BP 121/55
--- NOTE | 2017-07-30 15:03 | PDOC ---
PROGRESS NOTES Chief Complaint Chief Complaint Cellulitis ASSESSMENT AND PLAN: 1. L knee infection: s/p TKR and fracture pinning 10 days ago, staple removal few days ago with retained staple. prelim cult with [facility]. on vanco/zosyn. hardware will have to come out eventually; hopefully can wait until fx stable 2. DM2: fairly well controlled on oral regimen. cont ISS 3. Hypothyroidism: on synthroid. TSH pending 4. HTN/HLD: continue home regimen 5. Hypoalbuminemia: severe, with acute inflammation on chronic malnutrition. Nutrition consult 6. Prophylaxis: heparin SQ plan: fu with id, cont vanco and zosyn x4-6weeks ptot sw for SNF tmr for IV abx eventually the left knee hardware need to get out by ortho History of Present Illness History of Present Illness Patient reclining in bed when team arrived. Patient expressed her frustration with the infection. Left knee bandage clean, dry and intact. ROS: no fever, chills, sob or chest pain Vitals Vitals Vital Signs Date Time Temp Pulse Resp B/P (MAP) Pulse Ox O2 Delivery O2 Flow Rate FiO2 07/30/17 11:00 98.1 91 18 123/55 (77) 90 Room Air 98.1 Physical Exam Physical Exam Left leg extended, tender to palpation, some swelling. LLE warm and tender to palpation as compared to RLE. Hair growth present on both legs. Patient expressed frustration with condition of her knee. General: Alert, Oriented X3, Cooperative, mild distress Heart: Regular rate, Other (distant S1 and S2) Lungs: Clear Abdomen: Soft Extremities: No clubbing, No cyanosis (tenderness to palpation in LLE; swelling and warmth present in L leg), Other (sinus tract at lateral (ORIF) incision. Purulent drainage. Surrounding erythema. ) Skin: Other (mild desquamation around incision area. Incision CDI and wound edges approximated. ) Labs LABS Laboratory Tests Test 07/29/17 16:26 07/29/17 20:59 07/30/17 07:38 07/30/17 08:31 Glucose (Fingerstick) 105 mg/dL (70-99) 122 mg/dL (70-99) 86 mg/dL (70-99) Sodium Level 140 mmol/L (136-145) Potassium Level 4.0 mmol/L (3.5-5.1) Chloride Level 103 mmol/L (98-107) Carbon Dioxide Level 31 mmol/L (21-32) Anion Gap 6 (6-14) Blood Urea Nitrogen 9 mg/dL (7-20) Creatinine 1.2 mg/dL (0.6-1.0) Estimated GFR (Cockcroft-Gault) 44.3 Glucose Level 116 mg/dL (70-99) Calcium Level 8.1 mg/dL (8.5-10.1) Test 07/30/17 11:33 Glucose (Fingerstick) 108 mg/dL (70-99) Assessment and Plan Assessmemt and Plan Problems Medical Problems: (1) Foreign body of knee Status: Acute (2) Wound infection Status: Acute Problems: Comment Review of Relevant I have reviewed the following items jeni (where applicable) has been applied. Labs Laboratory Tests Test 07/28/17 16:04 07/28/17 21:03 07/29/17 07:36 07/29/17 11:06 Glucose (Fingerstick) 177 mg/dL (70-99) 162 mg/dL (70-99) 93 mg/dL (70-99) 95 mg/dL (70-99) Test 07/29/17 13:10 07/29/17 16:26 07/29/17 20:59 07/30/17 07:38 White Blood Count 9.4 x10^3/uL (4.0-11.0) Red Blood Count 2.78 x10^6/uL (3.50-5.40) Hemoglobin 7.9 g/dL (12.0-15.5) Hematocrit 24.4 % (36.0-47.0) Mean Corpuscular Volume 88 fL (79-100) Mean Corpuscular Hemoglobin 28 pg (25-35) Mean Corpuscular Hemoglobin Concent 32 g/dL (31-37) Red Cell Distribution Width 16.6 % (11.5-14.5) Platelet Count 453 x10^3/uL (140-400) Neutrophils (%) (Auto) 67 % (31-73) Lymphocytes (%) (Auto) 20 % (24-48) Monocytes (%) (Auto) 9 % (0-9) Eosinophils (%) (Auto) 3 % (0-3) Basophils (%) (Auto) 1 % (0-3) Neutrophils # (Auto) 6.3 x10^3uL (1.8-7.7) Lymphocytes # (Auto) 1.9 x10^3/uL (1.0-4.8) Monocytes # (Auto) 0.8 x10^3/uL (0.0-1.1) Eosinophils # (Auto) 0.3 x10^3/uL (0.0-0.7) Basophils # (Auto) 0.1 x10^3/uL (0.0-0.2) Sodium Level 141 mmol/L (136-145) Potassium Level 4.4 mmol/L (3.5-5.1) Chloride Level 103 mmol/L (98-107) Carbon Dioxide Level 30 mmol/L (21-32) Anion Gap 8 (6-14) Blood Urea Nitrogen 7 mg/dL (7-20) Creatinine 1.4 mg/dL (0.6-1.0) Estimated GFR (Cockcroft-Gault) 37.1 Glucose Level 109 mg/dL (70-99) Calcium Level 9.0 mg/dL (8.5-10.1) Glucose (Fingerstick) 105 mg/dL (70-99) 122 mg/dL (70-99) 86 mg/dL (70-99) Test 07/30/17 08:31 07/30/17 11:33 Sodium Level 140 mmol/L (136-145) Potassium Level 4.0 mmol/L (3.5-5.1) Chloride Level 103 mmol/L (98-107) Carbon Dioxide Level 31 mmol/L (21-32) Anion Gap 6 (6-14) Blood Urea Nitrogen 9 mg/dL (7-20) Creatinine 1.2 mg/dL (0.6-1.0) Estimated GFR (Cockcroft-Gault) 44.3 Glucose Level 116 mg/dL (70-99) Calcium Level 8.1 mg/dL (8.5-10.1) Glucose (Fingerstick) 108 mg/dL (70-99) Laboratory Tests Test 07/29/17 16:26 07/29/17 20:59 07/30/17 07:38 07/30/17 08:31 Glucose (Fingerstick) 105 mg/dL (70-99) 122 mg/dL (70-99) 86 mg/dL (70-99) Sodium Level 140 mmol/L (136-145) Potassium Level 4.0 mmol/L (3.5-5.1) Chloride Level 103 mmol/L (98-107) Carbon Dioxide Level 31 mmol/L (21-32) Anion Gap 6 (6-14) Blood Urea Nitrogen 9 mg/dL (7-20) Creatinine 1.2 mg/dL (0.6-1.0) Estimated GFR (Cockcroft-Gault) 44.3 Glucose Level 116 mg/dL (70-99) Calcium Level 8.1 mg/dL (8.5-10.1) Test 07/30/17 11:33 Glucose (Fingerstick) 108 mg/dL (70-99) Microbiology 07/26/17 Blood Culture - Preliminary, Resulted NO GROWTH AFTER 4 DAYS 07/25/17 Urine Culture - Final, Complete 07/25/17 Urine Culture Result 1 (LARY) - Final, Complete 07/26/17 Anaerobic/Aerobic Culture, Resulted Pending 07/26/17 Anaerobic Culture Result 1 (LARY), Resulted Pending 07/26/17 Aerobic Culture - Final, Resulted 07/26/17 Aerobic Culture Result 1 (LARY) - Final, Resulted Medications Current Medications Acetaminophen/ Hydrocodone Bitart (Lortab 5/325) 1 tab 1X ONCE PO Last administered on 07/25/17 12:23; Start 07/25/17 at 12:00; Stop 07/25/17 at 12:01 ; Status DC Piperacillin Sod/ Tazobactam Sod 4.5 gm/Sodium Chloride 100 ml @ 200 mls/hr 1X ONCE IV Last administered on 07/25/17 12:23; Start 07/25/17 at 12:00; Stop 07/25/17 at 12:29; Status DC Morphine Sulfate 2 mg 1X ONCE IV Last administered on 07/25/17 13:51; Start 07/25/17 at 13:45; Stop 07/25/17 at 13:47; Status DC Potassium Chloride (Klor-Con) 40 meq 1X ONCE PO Last administered on 13:51; Start 07/25/17 at 13:45; Stop 07/25/17 at 13:47; Status DC Ondansetron HCl (Zofran) 4 mg PRN Q8HRS PRN IV NAUSEA/VOMITING; Start 07/25/17 at 14:30; Stop 07/26/17 at 14:29; Status DC Piperacillin Sod/ Tazobactam Sod (Zosyn Per Pharmacy) 1 each PRN DAILY PRN MC SEE COMMENTS; Start 07/25/17 at 16:00; Stop 07/25/17 at 16:24; Status DC Morphine Sulfate (Morphine Ir) 15 mg PRN Q4HRS PRN PO SEVERE PAIN Last administered on 07/29/17 11:14; Start 07/25/17 at 16:00 Morphine Sulfate 4 mg PRN Q2HR PRN IV PAIN Last administered on 07/29/17 17:41 ; Start 07/25/17 at 16:00 Acetaminophen (Tylenol) 650 mg PRN Q6HRS PRN PO MILD PAIN Last administered on 07/29/17 16:31; Start 07/25/17 at 16:00 Docusate Sodium (Colace) 100 mg DAILY PO Last administered on 07/30/17 10:04; Start 07/26/17 at 09:00 Polyethylene Glycol (miraLAX PACKET) 17 gm DAILY PO Last administered on 09:35; Start 07/25/17 at 16:00 Dextrose (Dextrose 50%-Water Syringe) 12.5 gm PRN Q15MIN PRN IV SEE COMMENTS; Start 07/25/17 at 16:30; Status Cancel Magnesium Sulfate/ Dextrose 50 ml @ 25 mls/hr 1X ONCE IV Last administered on 07/25/17 18:29; Start 07/25/17 at 17:00; Stop 07/25/17 at 18:59; Status DC Calcium Carbonate/ Glycine (Oscal) 500 mg DAILY PO Last administered on 10:04; Start 07/26/17 at 09:00 Acetaminophen/ Hydrocodone Bitart (Lortab 5/325) 1 tab PRN Q6HRS PRN PO MODERATE PAIN Last administered on 07/29/17 11:13; Start 07/25/17 at 17:00 Insulin Detemir (Levemir) 20 units QPM SQ Last administered on 07/29/17 18:00 ; Start 07/25/17 at 18:00 Levothyroxine Sodium (Synthroid) 50 mcg DAILY07 PO Last administered on 05:59; Start 07/26/17 at 07:00 Metformin HCl (Glucophage) 1,000 mg BIDWMEALS PO Last administered on 10:05; Start 07/25/17 at 17:00 Vitamin D (Vitamin D3) 5,000 unit DAILY PO Last administered on 07/30/17 09:00 ; Start 07/26/17 at 09:00 Citalopram Hydrobromide (CeleXA) 40 mg DAILY PO Last administered on 07/30/17 10:04; Start 07/26/17 at 09:00 Gabapentin (Neurontin) 300 mg TID PO Last administered on 07/30/17 10:05; Start 07/25/17 at 21:00 Meloxicam (Mobic) 15 mg DAILY PO Last administered on 07/30/17 10:04; Start at 09:00 Atorvastatin Calcium (Lipitor) 80 mg QHS PO Last administered on 07/29/17 23: 31; Start 07/25/17 at 21:00 Insulin Aspart (NovoLOG) 0-7 UNITS QIDACHS SQ Last administered on 07/28/17 17 :12; Start 07/25/17 at 21:00 Dextrose (Dextrose 50%-Water Syringe) 12.5 gm PRN Q15MIN PRN IV SEE COMMENTS; Start 07/25/17 at 17:00 Albuterol/ Ipratropium (Duoneb) 3 ml RTQID NEB Last administered on 07/30/17 09:47; Start 07/25/17 at 20:00 Info (Do NOT chart on this placeholder) 1 each PRN 1X PRN MC SEE COMMENTS; Start 07/25/17 at 20:15; Status UNV Influenza Virus Vaccine Quadrival (Fluarix Quad [id number] Syringe) 0.5 ml ONCE ONCE VAX IM Last administered on 07/26/17 09:42; Start 07/26/17 at 09:00; Stop 07/26/17 at 09:01; Status DC Vancomycin HCl (Vanco Per Pharmacy) 1 each PRN DAILY PRN MC SEE COMMENTS Last administered on 07/30/17 10:22; Start 07/26/17 at 08:45 Vancomycin HCl 1.75 gm/Sodium Chloride 500 ml @ 250 mls/hr 1X ONCE IV Last administered on 07/26/17 09:40; Start 07/26/17 at 09:00; Stop 07/26/17 at 10:59 ; Status DC Vancomycin HCl 1 gm/Sodium Chloride 250 ml @ 250 mls/hr Q18H IV Last administered on 07/30/17 04:00; Start 07/27/17 at 04:00 Vancomycin HCl 1 each 1X ONCE MC Last administered on 07/27/17 21:10; Start 07/27/17 at 21:30; Stop 07/27/17 at 21:31; Status DC Piperacillin Sod/ Tazobactam Sod 3.375 gm/Sodium Chloride 50 ml @ 100 mls/hr Q6HRS IV Last administered on 07/30/17 11:32; Start 07/26/17 at 13:00 Heparin Sodium (Porcine) (Heparin Sq) 5,000 unit Q8HRS SQ Last administered on 07/30/17 06:00; Start 07/27/17 at 16:00 Potassium Chloride (Klor-Con) 40 meq 1X ONCE PO Last administered on 12:50; Start 07/28/17 at 11:45; Stop 07/28/17 at 11:46; Status DC Active Scripts Active Reported Promethazine Hcl 25 Mg Tablet 25 Mg PO Q6H PRN Levemir Flextouch (Insulin Detemir) 100 Unit/1 Ml Insuln.pen 40 Unit SQ QPM Inject 40 units subcutaneously every night with the evening meal. Meloxicam 15 Mg Tablet 15 Mg PO DAILY Glipizide Xl (Glipizide) 5 Mg Tab.er.24 5 Mg PO DAILY Hydrocodone-Apap 5-325 (Hydrocodone Bit/Acetaminophen) 1 Each Tablet 1 Tab PO PRN Q6HRS PRN Vitamin D3 (Cholecalciferol (Vitamin D3)) 5,000 Unit Tablet 5,000 Unit PO DAILY Crestor (Rosuvastatin Calcium) 40 Mg Tablet 40 Mg PO HS Lexapro (Escitalopram Oxalate) 20 Mg Tablet 20 Mg PO DAILY Gabapentin 300 Mg Capsule 300 Mg PO TID Calcium (Calcium Carbonate) 500 Mg Tablet 500 Mg PO DAILY Zinc (Zinc Gluconate-Zinc Picolinate) 30 Mg Capsule 30 Mg PO Levothyroxine Sodium 50 Mcg Tablet 1 Tab PO DAILY Plavix (Clopidogrel Bisulfate) 75 Mg Tablet 75 Mg PO DAILY Metformin Hcl 1,000 Mg Tablet 1,000 Mg PO BID next dose Wed evening dose 12/22 Vitals/I & O Vital Sign - Last 24 Hours 07/29/17 07/29/17 07/29/17 07/29/17 17:41 18:11 19:00 20:00 Temp 98.1 98.1 Pulse 91 Resp 20 20 18 B/P (MAP) 100/56 (71) Pulse Ox 94 O2 Delivery Room Air Room Air Room Air 07/29/17 07/29/17 07/30/17 07/30/17 20:20 23:30 03:00 07:00 Temp 97.7 97.9 97.7 97.9 Pulse 92 88 Resp 18 18 B/P (MAP) 123/62 (82) 146/66 (92) Pulse Ox 91 93 91 O2 Delivery Room Air Room Air Room Air 07/30/17 07/30/17 09:47 11:00 Temp 98.1 98.1 Pulse 91 Resp 18 B/P (MAP) 123/55 (77) Pulse Ox 94 90 O2 Delivery Room Air Room Air BRYNN MOE MD Jul 30, 2017 15:03
[2017-07-30] MEDS: HYDROcodone/APAP 5/325MG 1 TAB TABLET PO PRN (15:39)
[2017-07-30] MEDS: INSULIN DETEMIR 300 UNITS/3 ML INSULN.PEN. SQ SCH (17:29)
[2017-07-30 19:00] VITALS: BP 136/64
[2017-07-30] MEDS ORDERED: ONDANSETRON PF 4 MG/2 ML VIAL. IV PRN (19:15)
[2017-07-30] MEDS: ATORVASTATIN CALCIUM 40 MG TABLET. PO SCH (21:05)
[2017-07-30 23:00] VITALS: BP 122/61
[2017-07-31] MEDS: PIPERACILLIN/TAZOBACTAM 3.375 GM in IV NORMAL SALINE 50ML 50 ML IV SCH ×4 (00:46→17:20)
[2017-07-31 03:00] VITALS: BP 121/57
[2017-07-31] MEDS: HYDROcodone/APAP 5/325MG 1 TAB TABLET PO PRN ×3 (03:12→22:26)
[2017-07-31] MEDS: LEVOTHYROXINE 50 MCG TABLET PO SCH (06:07)
[2017-07-31] MEDS: HEPARIN PF for SUB-Q USE 5,000 UNIT/0.5 ML VIAL. SQ SCH ×3 (06:08→22:30)
[2017-07-31 06:36] LABS: BASO # 0.1 x10^3/uL (0.0-0.2); BASO % 1 % (0-3); EOS % 5 % (0-3); HEMATOCRIT 22.3 % (36.0-47.0); HEMOGLOBIN 7.4 g/dL (12.0-15.5); LYMPH # 2.1 x10^3/uL (1.0-4.8); LYMPH % 24 % (24-48); MEAN CORPUSCULAR HEMOGLOBIN 28 pg (25-35); MEAN CORPUSCULAR HGB CONC 33 g/dL (31-37); MEAN CORPUSCULAR VOLUME 85 fL (79-100); MONO % 8 % (0-9); NEUT % 62 % (31-73); PLATELET COUNT 433 x10^3/uL (140-400); RED BLOOD COUNT 2.61 x10^6/uL (3.50-5.40); WHITE BLOOD COUNT 8.7 x10^3/uL (4.0-11.0)
[2017-07-31 06:48] LABS: CALCIUM 8.3 mg/dL (8.5-10.1); CREATININE 1.1 mg/dL (0.6-1.0); POTASSIUM 3.7 mmol/L (3.5-5.1)
[2017-07-31 07:00] VITALS: BP 121/59
[2017-07-31] MEDS: INSULIN ASPART 300 UNITS/3 ML INSULN.PEN SQ SCH ×4 (07:30→21:00)
[2017-07-31] MEDS: IPRATRPIUM/ALBUTEROL 0.5/2.5MG 3 ML NEBU. NEB SCH ×4 (07:31→20:00)
[2017-07-31] MEDS: POLYETHYLENE GLYCOL 3350 17 GM PACKET. PO SCH (09:00)
[2017-07-31] MEDS: CHOLECALCIFEROL (VITAMIN D3) 5,000 UNIT CAPSULE PO SCH (09:00)
[2017-07-31] MEDS: MELOXICAM 7.5 MG TABLET PO SCH (09:00)
[2017-07-31] MEDS: CALCIUM CARBONATE 500 MG TABLET PO SCH (09:00)
[2017-07-31] MEDS: DOCUSATE SODIUM 100 MG CAPSULE. PO SCH (09:00)
[2017-07-31] MEDS: GABAPENTIN 300 MG CAPSULE. PO SCH ×3 (09:00→20:52)
[2017-07-31] MEDS: CITALOPRAM 20 MG TABLET. PO SCH ×2 (09:00→13:40)
--- NOTE | 2017-07-31 09:02 | PDOC ---
Infectious Disease Note Subjective Subjective Knee ok. Having some loose stool at times ROS ROS GEN: Denies fevers, chills, sweats HEENT: Denies blurred vision, sore throat CV: Denies chest pain RESP: Denies shortness of air, cough GI: Denies n/v NEURO: Denies confusion, dizziness Vital Sign Vital Signs Vital Signs Date Time Temp Pulse Resp B/P (MAP) Pulse Ox O2 Delivery O2 Flow Rate FiO2 07/31/17 07:33 93 Room Air 07/31/17 03:00 97.9 86 21 121/57 (78) 97.9 Physical Exam PHYSICAL EXAM GENERAL: NAD, Alert. On side of bed and looks well HEENT: PERRL, OC/OP - clear NECK: Supple, no JVD, no LN LUNGS: Clear HEART: S1S2, no gallop, no murmur ABD: Soft, NT, no organomegaly, no rebound EXT: No edema, no cyanosis. Knee dressed EVENTS SOLUTIONS CONSULTANT: Alert, oriented x 3, no focal neurologic deficit SKIN: No rash IV: PICC clean Labs Lab Laboratory Tests Test 07/30/17 11:33 07/30/17 16:44 07/30/17 21:04 07/31/17 06:29 Glucose (Fingerstick) 108 mg/dL (70-99) 137 mg/dL (70-99) 91 mg/dL (70-99) White Blood Count 8.7 x10^3/uL (4.0-11.0) Red Blood Count 2.61 x10^6/uL (3.50-5.40) Hemoglobin 7.4 g/dL (12.0-15.5) Hematocrit 22.3 % (36.0-47.0) Mean Corpuscular Volume 85 fL (79-100) Mean Corpuscular Hemoglobin 28 pg (25-35) Mean Corpuscular Hemoglobin Concent 33 g/dL (31-37) Red Cell Distribution Width 17.0 % (11.5-14.5) Platelet Count 433 x10^3/uL (140-400) Neutrophils (%) (Auto) 62 % (31-73) Lymphocytes (%) (Auto) 24 % (24-48) Monocytes (%) (Auto) 8 % (0-9) Eosinophils (%) (Auto) 5 % (0-3) Basophils (%) (Auto) 1 % (0-3) Neutrophils # (Auto) 5.4 x10^3uL (1.8-7.7) Lymphocytes # (Auto) 2.1 x10^3/uL (1.0-4.8) Monocytes # (Auto) 0.7 x10^3/uL (0.0-1.1) Eosinophils # (Auto) 0.4 x10^3/uL (0.0-0.7) Basophils # (Auto) 0.1 x10^3/uL (0.0-0.2) Sodium Level 141 mmol/L (136-145) Potassium Level 3.7 mmol/L (3.5-5.1) Chloride Level 105 mmol/L (98-107) Carbon Dioxide Level 30 mmol/L (21-32) Anion Gap 6 (6-14) Blood Urea Nitrogen 9 mg/dL (7-20) Creatinine 1.1 mg/dL (0.6-1.0) Estimated GFR (Cockcroft-Gault) 49.0 Glucose Level 59 mg/dL (70-99) Calcium Level 8.3 mg/dL (8.5-10.1) Objective Assessment Left knee infection with hardware in place - drainage has slowed anemia DM CHF Plan Plan of Care D/w Dr. Rubi 07/30 Will need vanc and Zosyn treatment for 4 to 6 weeks and will likely need hardware removal at a later date base on healing of fracture Q Sunday CBC/Sed rate/Vanc trough/Cr fax to [phone] F/u ID office 2 weeks [phone] KELSEY ABBOTT MD Jul 31, 2017 09:02
[2017-07-31] MEDS ORDERED: INSU100I27 SQ (10:13)
[2017-07-31] MEDS ORDERED: HYDR-2758 PO (10:13)
[2017-07-31 11:00] VITALS: BP 125/57
--- NOTE | 2017-07-31 13:40 | PDOC3 ---
Discharge Summary [facility] Date of Admission: Jul 26, 2017 Discharge Date: Jul 31, 2017 Admitting Diagnosis 1. L knee infection: s/p TKR and fracture pinning 10 days ago, staple removal few days ago with retained staple. 2. DM2 3. Hypothyroidism: on synthroid 4. HTN/HLD 5. Hypoalbuminemia Problems: Final Diagnosis CONSULTS dr. Rubi id Brief Hospital Course Ms. Charles is a 72 old F, got LEFT TKR recently, then got distal femur fx above the knee replacement , then got ORIF. comes for left knee pain. was treated with iv vanco and zosyn, the knee hardware still in to help the fx heal dc to rehab for cont vanco and zosyn x4-6weeks, then likely remove the hardware by dr. Rubi. bcx neg. knee cx not significant. levemir decreased to 15u qhs, ssi. also on glipizide. dc time 35min Physical Exam Left leg extended, tender to palpation, some swelling. LLE warm and tender to palpation as compared to RLE. Hair growth present on both legs. Patient expressed frustration with condition of her knee. General: Alert, Oriented X3, Cooperative, mild distress Heart: Regular rate, Other (distant S1 and S2) Lungs: Clear Abdomen: Soft Extremities: No clubbing, No cyanosis (tenderness to palpation in LLE; swelling and warmth present in L leg), Other (sinus tract at lateral (ORIF) incision. ) Skin: Other (mild desquamation around incision area. Incision CDI and wound edges approximated. ) Patient History: FH: colon cancer 32 MOTHER FH: stomach cancer 33 FATHER Family history: Cardiovascular disease (situation) G8 SON G8 SISTER Problems: Disposition rehab CONDITION AT DISCHARGE: Improved Diet regular Scheduled Calcium Carbonate (Calcium), 500 MG PO DAILY, (Reported) Cholecalciferol (Vitamin D3) (Vitamin D3), 5,000 UNIT PO DAILY, (Reported) Clopidogrel Bisulfate (Plavix), 75 MG PO DAILY, (Reported) Escitalopram Oxalate (Lexapro), 20 MG PO DAILY, (Reported) Gabapentin (Gabapentin), 300 MG PO TID, (Reported) Glipizide (Glipizide Xl), 5 MG PO DAILY, (Reported) Insulin Detemir (Levemir Flextouch), 15 UNITS SQ QPM Levothyroxine Sodium (Levothyroxine Sodium), 1 TAB PO DAILY, (Reported) Meloxicam (Meloxicam), 15 MG PO DAILY, (Reported) Metformin Hcl (Metformin Hcl), 1,000 MG PO BID, (Reported) Rosuvastatin Calcium (Crestor), 40 MG PO HS, (Reported) Scheduled PRN Hydrocodone Bit/Acetaminophen (Hydrocodone-Apap 5-325 ), 1 TAB PO PRN Q6HRS PRN for PAIN Promethazine Hcl (Promethazine Hcl), 25 MG PO Q6H PRN for NAUSEA/VOMITING, ( Reported) Miscellaneous Medications Zinc Gluconate-Zinc Picolinate (Zinc), 30 MG PO, (Reported) Discontinued Medications Cholecalciferol (Vitamin D3) (Vitamin D3), 5,000 UNIT PO DAILY, (Reported) Discontinued Reason: Prescription changed Insulin Detemir (Levemir Flextouch), 40 UNIT SQ QPM, (Reported) Follow Up id and ortho in 2 weeks BRYNN MOE MD Jul 31, 2017 13:40
[2017-07-31 15:00] VITALS: BP 129/57
[2017-07-31] MEDS: VANCOMYCIN 1 GM in IV NORMAL SALINE 250ML 250 ML IV SCH (17:19)
[2017-07-31] MEDS ORDERED: INSULIN DETEMIR 300 UNITS/3 ML INSULN.PEN. SQ SCH (18:00)
[2017-07-31 19:30] VITALS: BP 110/53
[2017-07-31] MEDS: ATORVASTATIN CALCIUM 40 MG TABLET. PO SCH (20:53)
[2017-07-31 23:38] VITALS: BP 114/60
[2017-08-01] MEDS: PIPERACILLIN/TAZOBACTAM 3.375 GM in IV NORMAL SALINE 50ML 50 ML IV SCH ×4 (00:12→19:55)
[2017-08-01 03:34] VITALS: BP 120/54
[2017-08-01] MEDS: HEPARIN PF for SUB-Q USE 5,000 UNIT/0.5 ML VIAL. SQ SCH (06:20)
[2017-08-01] MEDS: LEVOTHYROXINE 50 MCG TABLET PO SCH (06:21)
[2017-08-01 07:00] VITALS: BP 138/48
[2017-08-01] MEDS: IPRATRPIUM/ALBUTEROL 0.5/2.5MG 3 ML NEBU. NEB SCH (07:05)
[2017-08-01] MEDS: INSULIN ASPART 300 UNITS/3 ML INSULN.PEN SQ SCH ×4 (07:30→21:00)
[2017-08-01] MEDS: POLYETHYLENE GLYCOL 3350 17 GM PACKET. PO SCH ×2 (09:00→09:21)
[2017-08-01] MEDS: CALCIUM CARBONATE 500 MG TABLET PO SCH (09:20)
[2017-08-01] MEDS: CHOLECALCIFEROL (VITAMIN D3) 5,000 UNIT CAPSULE PO SCH (09:20)
[2017-08-01] MEDS: DOCUSATE SODIUM 100 MG CAPSULE. PO SCH (09:20)
[2017-08-01] MEDS: CITALOPRAM 20 MG TABLET. PO SCH (09:20)
[2017-08-01] MEDS: GABAPENTIN 300 MG CAPSULE. PO SCH ×3 (09:20→22:58)
[2017-08-01] MEDS: MELOXICAM 7.5 MG TABLET PO SCH (09:21)
[2017-08-01] MEDS ORDERED: INSU100I27 SQ (09:31)
[2017-08-01 11:00] VITALS: BP 129/51
[2017-08-01 11:51] LABS: HEMATOCRIT 23.4 % (36.0-47.0); HEMOGLOBIN 7.6 g/dL (12.0-15.5); RED BLOOD COUNT 2.68 x10^6/uL (3.50-5.40); RED CELL DISTRIBUTION WIDTH 17.2 % (11.5-14.5); WHITE BLOOD COUNT 8.3 x10^3/uL (4.0-11.0)
[2017-08-01] MEDS: VANCOMYCIN 1 GM in IV NORMAL SALINE 250ML 250 ML IV SCH ×2 (11:53→18:51)
[2017-08-01] MEDS: VANCOMYCIN PER PHARMACY MC PRN ×2 (11:59→21:34)
--- NOTE | 2017-08-01 14:27 | PDOC ---
PROGRESS NOTES Chief Complaint Chief Complaint Cellulitis ASSESSMENT AND PLAN: 1. L knee infection: s/p TKR 06/26, then distal femur fx above replacement 06/27 , staple removal few days ago with retained staple. prelim cult with [facility]. on vanco/zosyn. 2. DM2: fairly well controlled on oral regimen. cont ISS 3. Hypothyroidism: on synthroid. TSH pending 4. HTN/HLD: continue home regimen 5. Hypoalbuminemia: severe, with acute inflammation on chronic malnutrition. Nutrition consult 6. ? bloody stool with diarrhea? AMS 2/2 hypoglycemia possibly plan: fu with id, cont vanco and zosyn x4-6weeks ptot sw for SNF tmr for IV abx eventually the left knee hardware need to get out by ortho hold dc today, check hb stable, FOBT, CDIFF pending. decrease levemir 15u to 5u qhs, ssi. dc heparin for now History of Present Illness History of Present Illness ROS: no fever, chills, sob or chest pain pt has been stable in the past 2days, supposed to dc yesterday, but has not find a snf for iv abx however, today, nurse told me she has bloody stool and AMS with unresponsive when i saw pt, pt looks normal, told me she has diarrhea x3ds, which is denied by nurse, and pt said no bloody stool Vitals Vitals Vital Signs Date Time Temp Pulse Resp B/P (MAP) Pulse Ox O2 Delivery O2 Flow Rate FiO2 08/01/17 11:00 98.6 79 16 129/51 (77) 94 Room Air 98.6 Physical Exam Physical Exam Left leg extended, tender to palpation, some swelling. LLE warm and tender to palpation as compared to RLE. Hair growth present on both legs. Patient expressed frustration with condition of her knee. General: Alert, Oriented X3, Cooperative, mild distress Heart: Regular rate, Other (distant S1 and S2) Lungs: Clear Abdomen: Soft Extremities: No clubbing, No cyanosis (tenderness to palpation in LLE; swelling and warmth present in L leg), Other (sinus tract at lateral (ORIF) incision. Purulent drainage. Surrounding erythema. ) Skin: Other (mild desquamation around incision area. Incision CDI and wound edges approximated. ) Labs LABS Laboratory Tests Test 07/31/17 16:20 07/31/17 21:16 08/01/17 07:24 08/01/17 09:29 Glucose (Fingerstick) 162 mg/dL (70-99) 145 mg/dL (70-99) 54 mg/dL (70-99) 98 mg/dL (70-99) Test 08/01/17 10:48 08/01/17 11:40 Glucose (Fingerstick) 91 mg/dL (70-99) White Blood Count 8.3 x10^3/uL (4.0-11.0) Red Blood Count 2.68 x10^6/uL (3.50-5.40) Hemoglobin 7.6 g/dL (12.0-15.5) Hematocrit 23.4 % (36.0-47.0) Mean Corpuscular Volume 87 fL (79-100) Mean Corpuscular Hemoglobin 28 pg (25-35) Mean Corpuscular Hemoglobin Concent 32 g/dL (31-37) Red Cell Distribution Width 17.2 % (11.5-14.5) Platelet Count 385 x10^3/uL (140-400) Assessment and Plan Assessmemt and Plan Problems Medical Problems: (1) Foreign body of knee Status: Acute (2) Wound infection Status: Acute Problems: Comment Review of Relevant I have reviewed the following items jeni (where applicable) has been applied. Labs Laboratory Tests Test 07/30/17 16:44 07/30/17 21:04 07/31/17 06:29 07/31/17 07:38 Glucose (Fingerstick) 137 mg/dL (70-99) 91 mg/dL (70-99) 66 mg/dL (70-99) White Blood Count 8.7 x10^3/uL (4.0-11.0) Red Blood Count 2.61 x10^6/uL (3.50-5.40) Hemoglobin 7.4 g/dL (12.0-15.5) Hematocrit 22.3 % (36.0-47.0) Mean Corpuscular Volume 85 fL (79-100) Mean Corpuscular Hemoglobin 28 pg (25-35) Mean Corpuscular Hemoglobin Concent 33 g/dL (31-37) Red Cell Distribution Width 17.0 % (11.5-14.5) Platelet Count 433 x10^3/uL (140-400) Neutrophils (%) (Auto) 62 % (31-73) Lymphocytes (%) (Auto) 24 % (24-48) Monocytes (%) (Auto) 8 % (0-9) Eosinophils (%) (Auto) 5 % (0-3) Basophils (%) (Auto) 1 % (0-3) Neutrophils # (Auto) 5.4 x10^3uL (1.8-7.7) Lymphocytes # (Auto) 2.1 x10^3/uL (1.0-4.8) Monocytes # (Auto) 0.7 x10^3/uL (0.0-1.1) Eosinophils # (Auto) 0.4 x10^3/uL (0.0-0.7) Basophils # (Auto) 0.1 x10^3/uL (0.0-0.2) Sodium Level 141 mmol/L (136-145) Potassium Level 3.7 mmol/L (3.5-5.1) Chloride Level 105 mmol/L (98-107) Carbon Dioxide Level 30 mmol/L (21-32) Anion Gap 6 (6-14) Blood Urea Nitrogen 9 mg/dL (7-20) Creatinine 1.1 mg/dL (0.6-1.0) Estimated GFR (Cockcroft-Gault) 49.0 Glucose Level 59 mg/dL (70-99) Calcium Level 8.3 mg/dL (8.5-10.1) Test 07/31/17 10:48 07/31/17 16:20 07/31/17 21:16 08/01/17 07:24 Glucose (Fingerstick) 92 mg/dL (70-99) 162 mg/dL (70-99) 145 mg/dL (70-99) 54 mg/dL (70-99) Test 08/01/17 09:29 08/01/17 10:48 08/01/17 11:40 Glucose (Fingerstick) 98 mg/dL (70-99) 91 mg/dL (70-99) White Blood Count 8.3 x10^3/uL (4.0-11.0) Red Blood Count 2.68 x10^6/uL (3.50-5.40) Hemoglobin 7.6 g/dL (12.0-15.5) Hematocrit 23.4 % (36.0-47.0) Mean Corpuscular Volume 87 fL (79-100) Mean Corpuscular Hemoglobin 28 pg (25-35) Mean Corpuscular Hemoglobin Concent 32 g/dL (31-37) Red Cell Distribution Width 17.2 % (11.5-14.5) Platelet Count 385 x10^3/uL (140-400) Laboratory Tests Test 07/31/17 16:20 07/31/17 21:16 08/01/17 07:24 08/01/17 09:29 Glucose (Fingerstick) 162 mg/dL (70-99) 145 mg/dL (70-99) 54 mg/dL (70-99) 98 mg/dL (70-99) Test 08/01/17 10:48 08/01/17 11:40 Glucose (Fingerstick) 91 mg/dL (70-99) White Blood Count 8.3 x10^3/uL (4.0-11.0) Red Blood Count 2.68 x10^6/uL (3.50-5.40) Hemoglobin 7.6 g/dL (12.0-15.5) Hematocrit 23.4 % (36.0-47.0) Mean Corpuscular Volume 87 fL (79-100) Mean Corpuscular Hemoglobin 28 pg (25-35) Mean Corpuscular Hemoglobin Concent 32 g/dL (31-37) Red Cell Distribution Width 17.2 % (11.5-14.5) Platelet Count 385 x10^3/uL (140-400) Microbiology 07/26/17 Blood Culture - Final, Complete NO GROWTH AFTER 5 DAYS 07/25/17 Urine Culture - Final, Complete 07/25/17 Urine Culture Result 1 (LARY) - Final, Complete 07/26/17 Anaerobic/Aerobic Culture - Final, Complete 07/26/17 Anaerobic Culture Result 1 (LARY) - Final, Complete 07/26/17 Aerobic Culture - Final, Complete 07/26/17 Aerobic Culture Result 1 (LARY) - Final, Complete Medications Current Medications Acetaminophen/ Hydrocodone Bitart (Lortab 5/325) 1 tab 1X ONCE PO Last administered on 07/25/17t 12:23; Start 07/25/17 at 12:00; Stop 07/25/17 at 12:01 ; Status DC Piperacillin Sod/ Tazobactam Sod 4.5 gm/Sodium Chloride 100 ml @ 200 mls/hr 1X ONCE IV Last administered on 07/25/17 12:23; Start 07/25/17 at 12:00; Stop 07/25/17 at 12:29; Status DC Morphine Sulfate 2 mg 1X ONCE IV Last administered on 07/25/17 13:51; Start 07/25/17 at 13:45; Stop 07/25/17 at 13:47; Status DC Potassium Chloride (Klor-Con) 40 meq 1X ONCE PO Last administered on 13:51; Start 07/25/17 at 13:45; Stop 07/25/17 at 13:47; Status DC Ondansetron HCl (Zofran) 4 mg PRN Q8HRS PRN IV NAUSEA/VOMITING; Start 07/25/17 at 14:30; Stop 07/26/17 at 14:29; Status DC Piperacillin Sod/ Tazobactam Sod (Zosyn Per Pharmacy) 1 each PRN DAILY PRN MC SEE COMMENTS; Start 07/25/17 at 16:00; Stop 07/25/17 at 16:24; Status DC Morphine Sulfate (Morphine Ir) 15 mg PRN Q4HRS PRN PO SEVERE PAIN Last administered on 07/29/17 11:14; Start 07/25/17 at 16:00 Morphine Sulfate 4 mg PRN Q2HR PRN IV PAIN Last administered on 07/29/17 17:41 ; Start 07/25/17 at 16:00 Acetaminophen (Tylenol) 650 mg PRN Q6HRS PRN PO MILD PAIN Last administered on 07/29/17 16:31; Start 07/25/17 at 16:00 Docusate Sodium (Colace) 100 mg DAILY PO Last administered on 08/01/17 09:20; Start 07/26/17 at 09:00 Polyethylene Glycol (miraLAX PACKET) 17 gm DAILY PO Last administered on 09:35; Start 07/25/17 at 16:00 Dextrose (Dextrose 50%-Water Syringe) 12.5 gm PRN Q15MIN PRN IV SEE COMMENTS; Start 07/25/17 at 16:30; Status Cancel Magnesium Sulfate/ Dextrose 50 ml @ 25 mls/hr 1X ONCE IV Last administered on 07/25/17 18:29; Start 07/25/17 at 17:00; Stop 07/25/17 at 18:59; Status DC Calcium Carbonate/ Glycine (Oscal) 500 mg DAILY PO Last administered on 09:20; Start 07/26/17 at 09:00 Acetaminophen/ Hydrocodone Bitart (Lortab 5/325) 1 tab PRN Q6HRS PRN PO MODERATE PAIN Last administered on 07/31/17 22:26; Start 07/25/17 at 17:00 Insulin Detemir (Levemir) 20 units QPM SQ Last administered on 07/30/17 17:29 ; Start 07/25/17 at 18:00; Stop 07/31/17 at 08:51; Status DC Levothyroxine Sodium (Synthroid) 50 mcg DAILY07 PO Last administered on 06:21; Start 07/26/17 at 07:00 Metformin HCl (Glucophage) 1,000 mg BIDWMEALS PO Last administered on 17:19; Start 07/25/17 at 17:00 Vitamin D (Vitamin D3) 5,000 unit DAILY PO Last administered on 08/01/17 09:20 ; Start 07/26/17 at 09:00 Citalopram Hydrobromide (CeleXA) 40 mg DAILY PO Last administered on 08/01/17 09:20; Start 07/26/17 at 09:00 Gabapentin (Neurontin) 300 mg TID PO Last administered on 08/01/17 13:42; Start 07/25/17 at 21:00 Meloxicam (Mobic) 15 mg DAILY PO Last administered on 08/01/17 09:21; Start at 09:00 Atorvastatin Calcium (Lipitor) 80 mg QHS PO Last administered on 07/31/17 20: 53; Start 07/25/17 at 21:00 Insulin Aspart (NovoLOG) 0-7 UNITS QIDACHS SQ Last administered on 07/31/17 17 :26; Start 07/25/17 at 21:00 Dextrose (Dextrose 50%-Water Syringe) 12.5 gm PRN Q15MIN PRN IV SEE COMMENTS; Start 07/25/17 at 17:00 Albuterol/ Ipratropium (Duoneb) 3 ml RTQID NEB Last administered on 07/31/17 07:31; Start 07/25/17 at 20:00; Stop 08/01/17 at 08:09; Status DC Info (Do NOT chart on this placeholder) 1 each PRN 1X PRN MC SEE COMMENTS; Start 07/25/17 at 20:15; Status UNV Influenza Virus Vaccine Quadrival (Fluarix Quad [id number] Syringe) 0.5 ml ONCE ONCE VAX IM Last administered on 07/26/17 09:42; Start 07/26/17 at 09:00; Stop 07/26/17 at 09:01; Status DC Vancomycin HCl (Vanco Per Pharmacy) 1 each PRN DAILY PRN MC SEE COMMENTS Last administered on 08/01/17 11:59; Start 07/26/17 at 08:45 Vancomycin HCl 1.75 gm/Sodium Chloride 500 ml @ 250 mls/hr 1X ONCE IV Last administered on 07/26/17 09:40; Start 07/26/17 at 09:00; Stop 07/26/17 at 10:59 ; Status DC Vancomycin HCl 1 gm/Sodium Chloride 250 ml @ 250 mls/hr Q18H IV Last administered on 08/01/17 11:53; Start 07/27/17 at 04:00 Vancomycin HCl 1 each 1X ONCE MC Last administered on 07/27/17 21:10; Start 07/27/17 at 21:30; Stop 07/27/17 at 21:31; Status DC Piperacillin Sod/ Tazobactam Sod 3.375 gm/Sodium Chloride 50 ml @ 100 mls/hr Q6HRS IV Last administered on 08/01/17 13:41; Start 07/26/17 at 13:00 Heparin Sodium (Porcine) (Heparin Sq) 5,000 unit Q8HRS SQ Last administered on 08/01/17 06:20; Start 07/27/17 at 16:00; Stop 08/01/17 at 11:38; Status DC Potassium Chloride (Klor-Con) 40 meq 1X ONCE PO Last administered on 12:50; Start 07/28/17 at 11:45; Stop 07/28/17 at 11:46; Status DC Ondansetron HCl (Zofran) 4 mg PRN Q6HRS PRN IV NAUSEA/VOMITING; Start 07/30/17 at 19:15 Insulin Detemir (Levemir) 15 units QPM SQ Last administered on 07/31/17t 19:26 ; Start 07/31/17 at 18:00; Stop 08/01/17 at 09:30; Status DC Albuterol/ Ipratropium (Duoneb) 3 ml PRN QID PRN NEB SHORTNESS OF BREATH; Start 08/02/17 at 08:00 Insulin Detemir (Levemir) 10 units QPM SQ ; Start 08/01/17 at 18:00; Stop at 18:00; Status DC Insulin Detemir (Levemir) 5 units QPM SQ ; Start 08/01/17 at 18:00 Active Scripts Active Levemir Flextouch (Insulin Detemir) 100 Unit/1 Ml Insuln.pen 10 Units SQ QPM Hydrocodone-Apap 5-325 (Hydrocodone Bit/Acetaminophen) 1 Each Tablet 1 Tab PO PRN Q6HRS PRN Reported Promethazine Hcl 25 Mg Tablet 25 Mg PO Q6H PRN Meloxicam 15 Mg Tablet 15 Mg PO DAILY Vitamin D3 (Cholecalciferol (Vitamin D3)) 5,000 Unit Tablet 5,000 Unit PO DAILY Crestor (Rosuvastatin Calcium) 40 Mg Tablet 40 Mg PO HS Lexapro (Escitalopram Oxalate) 20 Mg Tablet 20 Mg PO DAILY Gabapentin 300 Mg Capsule 300 Mg PO TID Calcium (Calcium Carbonate) 500 Mg Tablet 500 Mg PO DAILY Zinc (Zinc Gluconate-Zinc Picolinate) 30 Mg Capsule 30 Mg PO Levothyroxine Sodium 50 Mcg Tablet 1 Tab PO DAILY Plavix (Clopidogrel Bisulfate) 75 Mg Tablet 75 Mg PO DAILY Metformin Hcl 1,000 Mg Tablet 1,000 Mg PO BID next dose Wed evening dose 12/22 Vitals/I & O Vital Sign - Last 24 Hours 07/31/17 07/31/17 07/31/17 07/31/17 15:00 19:30 20:00 23:38 Temp 97.7 98.2 98.4 97.7 98.2 98.4 Pulse 81 79 80 Resp 18 20 18 B/P (MAP) 129/57 (81) 110/53 (72) 114/60 (78) Pulse Ox 94 94 96 O2 Delivery Room Air Room Air Room Air Room Air 08/01/17 08/01/17 08/01/17 03:34 07:00 11:00 Temp 97.7 97.9 98.6 97.7 97.9 98.6 Pulse 97 87 79 Resp 18 16 16 B/P (MAP) 120/54 (76) 138/48 (78) 129/51 (77) Pulse Ox 91 95 94 O2 Delivery Room Air Room Air Room Air BRYNN OME MD Aug 01, 2017 14:26
[2017-08-01 15:00] VITALS: BP_SYST 122; BP_SYST 139; BP_DIAS 58; BP_DIAS 78
[2017-08-01] MEDS ORDERED: INSULIN DETEMIR 300 UNITS/3 ML INSULN.PEN. SQ SCH ×2 (18:00)
[2017-08-01] MEDS: ACETAMINOPHEN 325 MG TABLET. PO PRN (18:51)
[2017-08-01 19:00] VITALS: BP 137/71
[2017-08-01] MEDS: ATORVASTATIN CALCIUM 40 MG TABLET. PO SCH (22:59)
[2017-08-01 23:00] VITALS: BP 170/64
[2017-08-02 03:00] VITALS: BP 142/54
[2017-08-02] MEDS: PIPERACILLIN/TAZOBACTAM 3.375 GM in IV NORMAL SALINE 50ML 50 ML IV SCH ×4 (06:18→11:54)
[2017-08-02] MEDS: LEVOTHYROXINE 50 MCG TABLET PO SCH (06:18)
[2017-08-02 06:33] LABS: BASO # 0.1 x10^3/uL (0.0-0.2); BASO % 1 % (0-3); EOS % 4 % (0-3); HEMATOCRIT 25.3 % (36.0-47.0); HEMOGLOBIN 8.2 g/dL (12.0-15.5); LYMPH # 1.9 x10^3/uL (1.0-4.8); LYMPH % 21 % (24-48); MEAN CORPUSCULAR HEMOGLOBIN 28 pg (25-35); MEAN CORPUSCULAR HGB CONC 32 g/dL (31-37); MEAN CORPUSCULAR VOLUME 87 fL (79-100); MONO % 8 % (0-9); NEUT % 66 % (31-73); PLATELET COUNT 423 x10^3/uL (140-400); RED BLOOD COUNT 2.91 x10^6/uL (3.50-5.40); RED CELL DISTRIBUTION WIDTH 17.3 % (11.5-14.5); WHITE BLOOD COUNT 9.1 x10^3/uL (4.0-11.0)
[2017-08-02 06:51] LABS: CALCIUM 8.6 mg/dL (8.5-10.1); CREATININE 1.1 mg/dL (0.6-1.0); POTASSIUM 3.9 mmol/L (3.5-5.1)
[2017-08-02 07:00] VITALS: BP 110/52
[2017-08-02] MEDS: INSULIN ASPART 300 UNITS/3 ML INSULN.PEN SQ SCH ×2 (07:30→11:30)
--- NOTE | 2017-08-02 07:57 | RAD ---
KNEE LEFT 2V Clinical Indication: Pain, feeling of shifting instrumentation L knee Comparison: Knee radiographs dated 07/25/2017, fluoroscopy images dated 07/06/2017 Findings: Redemonstration of postoperative changes of right total knee arthroplasty and distal femoral ORIF with sideplate and screw fixation. There is evidence of possible ORIF hardware partial failure with apparent increased space between the sideplate and the lateral femoral shaft as well as fracture of the second most inferior screw at its intersection with the sideplate. No significant change in position or alignment of the comminuted distal femoral fracture fragments. Soft tissue swelling of the thigh and knee. Single skin staple persists in the lateral knee. IMPRESSION: There is evidence of possible distal femoral ORIF hardware partial failure with apparent increased space between the sideplate and the lateral femoral shaft as well as fracture of the second most inferior screw at its intersection with the sideplate. Although the distance between the sideplate and the femoral shaft appears increased compared to 07/25/2017 exam, it is not significantly changed from the original perioperative fluoroscopy images. This increased distance could be accentuated by differences in projection, but the fractured second-most inferior most screw was not seen on prior imaging.
[2017-08-02] MEDS ORDERED: IPRATRPIUM/ALBUTEROL 0.5/2.5MG 3 ML NEBU. NEB PRN (08:00)
[2017-08-02] MEDS: POLYETHYLENE GLYCOL 3350 17 GM PACKET. PO SCH (09:00)
[2017-08-02] MEDS: DOCUSATE SODIUM 100 MG CAPSULE. PO SCH (09:00)
[2017-08-02] MEDS: CHOLECALCIFEROL (VITAMIN D3) 5,000 UNIT CAPSULE PO SCH (09:19)
[2017-08-02] MEDS: GABAPENTIN 300 MG CAPSULE. PO SCH ×2 (09:20→14:04)
[2017-08-02] MEDS: CITALOPRAM 20 MG TABLET. PO SCH (09:20)
[2017-08-02] MEDS: CALCIUM CARBONATE 500 MG TABLET PO SCH (09:21)
[2017-08-02] MEDS ORDERED: INSU100I27 SQ (09:52)
[2017-08-02 11:00] VITALS: BP 123/65
[2017-08-02] MEDS: VANCOMYCIN PER PHARMACY MC PRN (12:33)
--- NOTE | 2017-08-02 12:43 | PDOC3 ---
Discharge Summary [facility] Date of Admission: Jul 26, 2017 Discharge Date: Aug 02, 2017 Admitting Diagnosis 1. L knee infection: s/p TKR and fracture pinning 10 days ago, staple removal few days ago with retained staple. 2. DM2 3. Hypothyroidism: on synthroid 4. HTN/HLD 5. Hypoalbuminemia ORIF hardware failure in XR AMS, 2/2 hypoglycemia likely, resolved Problems: Final Diagnosis CONSULTS dr. Rubi id Brief Hospital Course Brief Hospital Course Ms. Charles is a 72 old F, got LEFT TKR recently, then got distal femur fx above the knee replacement , then got ORIF. comes for left knee pain. was treated with iv vanco and zosyn for infection, the knee hardware still in to help the fx heal will need cont vanco and zosyn x4-6weeks, then likely remove the hardware by dr. Rubi. bcx neg. knee cx not significant. pt feels more knee pain, XR repeated showed ORIF hardware failure, i talked to dr. Rubi , will transfer pt to [facility] fu with dr. Fitzpatrick for further maybe i and d. levemir decreased to 5u qhs, ssi. also on glipizide. pt had possible lower gib, fobt pending, but hb is stable. diarrhea x3ds, cdiff neg. dc time 35min Left leg extended, tender to palpation, some swelling. LLE warm and tender to palpation as compared to RLE. Hair growth present on both legs. Patient expressed frustration with condition of her knee. General: Alert, Oriented X3, Cooperative, mild distress Heart: Regular rate, Other (distant S1 and S2) Lungs: Clear Abdomen: Soft Extremities: No clubbing, No cyanosis (tenderness to palpation in LLE; swelling and warmth present in L leg), Other (sinus tract at lateral (ORIF) incision. ) Skin: Other (mild desquamation around incision area. Incision CDI and wound edges approximated. ) Patient History: Patient History: FH: colon cancer 32 MOTHER FH: stomach cancer 33 FATHER Family history: Cardiovascular disease (situation) G8 SON G8 SISTER Problems: Disposition transfer to [place] CONDITION AT DISCHARGE: Improved Diet regular Scheduled Calcium Carbonate (Calcium), 500 MG PO DAILY, (Reported) Cholecalciferol (Vitamin D3) (Vitamin D3), 5,000 UNIT PO DAILY, (Reported) Clopidogrel Bisulfate (Plavix), 75 MG PO DAILY, (Reported) Escitalopram Oxalate (Lexapro), 20 MG PO DAILY, (Reported) Gabapentin (Gabapentin), 300 MG PO TID, (Reported) Insulin Detemir (Levemir Flextouch), 5 UNITS SQ QPM Levothyroxine Sodium (Levothyroxine Sodium), 1 TAB PO DAILY, (Reported) Meloxicam (Meloxicam), 15 MG PO DAILY, (Reported) Metformin Hcl (Metformin Hcl), 1,000 MG PO BID, (Reported) Rosuvastatin Calcium (Crestor), 40 MG PO HS, (Reported) Scheduled PRN Hydrocodone Bit/Acetaminophen (Hydrocodone-Apap 5-325 ), 1 TAB PO PRN Q6HRS PRN for PAIN Promethazine Hcl (Promethazine Hcl), 25 MG PO Q6H PRN for NAUSEA/VOMITING, ( Reported) Miscellaneous Medications Zinc Gluconate-Zinc Picolinate (Zinc), 30 MG PO, (Reported) Discontinued Medications Insulin Detemir (Levemir Flextouch), 40 UNIT SQ QPM, (Reported) BRYNN MOE MD Aug 02, 2017 12:42
[2017-08-02] MEDS: HYDROcodone/APAP 5/325MG 1 TAB TABLET PO PRN (14:04)
[2017-08-02] MEDS ORDERED: VANCOMYCIN 1 GM in IV NORMAL SALINE 250ML 250 ML IV SCH (17:00)
== END 2017-08-02 14:50 | disposition short-term general hospital (02) | DRG 559 ==
LOC: ER 11:07 → 4 NORTH 13:54 → OBSVTOIN 07-26 12:35
PROVIDERS: ADMIT Internal Medicine; ATTEND Internal Medicine
PROC: 02HV33Z Insertion of Infusion Device into Superior Vena Cava, Percutaneous Approach (ICD-10-PCS; principal; 2017-07-26)
PROC: 4A02X4A Measurement of Cardiac Electrical Activity, Guidance, External Approach (ICD-10-PCS; 2017-07-26)
DX: T84.54XA Infection and inflammatory reaction due to internal left knee prosthesis, initial encounter (principal); E43 Unspecified severe protein-calorie malnutrition; E11.649 Type 2 diabetes mellitus with hypoglycemia without coma; I11.0 Hypertensive heart disease with heart failure; I50.9 Heart failure, unspecified; L03.116 Cellulitis of left lower limb; T84.093A Other mechanical complication of internal left knee prosthesis, initial encounter; L97.829 Non-pressure chronic ulcer of other part of left lower leg with unspecified severity; D64.9 Anemia, unspecified; E03.9 Hypothyroidism, unspecified; E78.5 Hyperlipidemia, unspecified; E87.6 Hypokalemia; Z96.652 Presence of left artificial knee joint; Y83.8 Other surgical procedures as the cause of abnormal reaction of the patient, or of later complication, without mention of misadventure at the time of the procedure; Z82.49 Family history of ischemic heart disease and other diseases of the circulatory system; Z83.3 Family history of diabetes mellitus; Z88.2 Allergy status to sulfonamides; Z68.30 Body mass index [BMI] 30.0-30.9, adult; Z80.0 Family history of malignant neoplasm of digestive organs
CPT/HCPCS: 36415; 36569; 51701; 73560; 73562; 80048; 80053; 80202; 81001; 82962; 83036; 84443; 85025; 85027; 85651; 87040; 87071; 87075; 87086; 87205; 87324; 90686; 93971; 94250; 94640; 94760; 96365; 96375; G0378; G0379; J1815; J2270; J2405; J2543; J3370; J7040; J7050; J7060; J7620; 97110; 97116; 97530; 97535; 99285-25; J7030

== ENCOUNTER 2018-05-31 09:05 | Outpatient (CLI) | payer MEDICARE ==
[2018-05-31 09:57] LABS: HEMOGLOBIN 11.3 g/dL (12.0-15.5); MEAN CORPUSCULAR HEMOGLOBIN 28 pg (25-35); MEAN CORPUSCULAR HGB CONC 33 g/dL (31-37); MEAN CORPUSCULAR VOLUME 84 fL (79-100); PLATELET COUNT 277 x10^3/uL (140-400); RED BLOOD COUNT 4.05 x10^6/uL (3.50-5.40); RED CELL DISTRIBUTION WIDTH 15.5 % (11.5-14.5); WHITE BLOOD COUNT 8.4 x10^3/uL (4.0-11.0)
[2018-05-31 10:08] LABS: INR 0.9 (0.8-1.1); PROTHROMBIN TIME PATIENT 12.1 SEC (11.7-14.0)
[2018-05-31 10:12] LABS: ANION GAP 2 (6-14); BLOOD UREA NITROGEN 14 mg/dL (7-20); CALCIUM 9.7 mg/dL (8.5-10.1); CARBON DIOXIDE 33 mmol/L (21-32); CHLORIDE 103 mmol/L (98-107); CREATININE 0.7 mg/dL (0.6-1.0); GFR 82.3; GLUCOSE 144 mg/dL (70-99); POTASSIUM 5.1 mmol/L (3.5-5.1); SODIUM 138 mmol/L (136-145)
[2018-05-31] MEDS ORDERED: LIDOCAINE 2% 20 ML VIAL. (10:14)
[2018-05-31] MEDS ORDERED: IODIXANOL 320 MG/ML 100 ML VIAL. (10:14)
[2018-05-31] MEDS ORDERED: MIDAZOLAM HCL/PF 2 MG/2 ML VIAL. (10:39)
[2018-05-31] MEDS ORDERED: VERAPAMIL 5 MG/2 ML VIAL. (10:39)
[2018-05-31] MEDS ORDERED: fentaNYL PF VIAL 100 MCG/2 ML VIAL (10:39)
[2018-05-31] MEDS ORDERED: NITROGLYCERIN 200 MCG/2 ML SYRINGE FOR CATH/VASC LAB. ×2 (10:39→11:38)
[2018-05-31] MEDS ORDERED: HEPARIN for IV BOLUS 10,000 UNIT/10 ML VIAL. (10:39)
[2018-05-31] MEDS: MIDAZOLAM HCL/PF 2 MG/2 ML VIAL. IV (10:53)
[2018-05-31] MEDS: IOHEXOL 300 MG/ML 100ML VIAL. IART (11:11)
[2018-05-31] MEDS ORDERED: IV 1/2 NORMAL SALINE 1,000 ML IV (11:11)
[2018-05-31] MEDS: LIDOCAINE 2% 20 ML VIAL. IJ (11:11)
[2018-05-31] MEDS: fentaNYL PF VIAL 100 MCG/2 ML VIAL IV (11:11)
[2018-05-31] MEDS: NITROGLYCERIN 200 MCG/2 ML SYRINGE FOR CATH/VASC LAB. IART (11:13)
[2018-05-31] MEDS: HEPARIN for IV BOLUS 10,000 UNIT/10 ML VIAL. IART (11:13)
[2018-05-31] MEDS: VERAPAMIL 5 MG/2 ML VIAL. IART (11:14)
== END 2018-05-31 14:09 | disposition home or self-care (01) ==
LOC: CCL 09:05
DX: I25.110 Atherosclerotic heart disease of native coronary artery with unstable angina pectoris (principal); Z88.1 Allergy status to other antibiotic agents; Z95.5 Presence of coronary angioplasty implant and graft; E78.00 Pure hypercholesterolemia, unspecified; Z87.01 Personal history of pneumonia (recurrent); E66.9 Obesity, unspecified; Z68.28 Body mass index [BMI] 28.0-28.9, adult; K21.9 Gastro-esophageal reflux disease without esophagitis; Z98.51 Tubal ligation status; M19.90 Unspecified osteoarthritis, unspecified site; E21.3 Hyperparathyroidism, unspecified; F41.9 Anxiety disorder, unspecified; F32.9 Major depressive disorder, single episode, unspecified; D64.9 Anemia, unspecified; Z80.0 Family history of malignant neoplasm of digestive organs; Z79.4 Long term (current) use of insulin; Z79.899 Other long term (current) drug therapy; Z83.3 Family history of diabetes mellitus; Z82.49 Family history of ischemic heart disease and other diseases of the circulatory system; E11.649 Type 2 diabetes mellitus with hypoglycemia without coma; I11.0 Hypertensive heart disease with heart failure; I50.9 Heart failure, unspecified; E43 Unspecified severe protein-calorie malnutrition; Z96.653 Presence of artificial knee joint, bilateral; M17.12 Unilateral primary osteoarthritis, left knee; I44.0 Atrioventricular block, first degree; I35.1 Nonrheumatic aortic (valve) insufficiency
CPT/HCPCS: 36415; 80048; 85027; 85610; 93458; 99153; C1769; C1892; J1644; J2001; J2250; J3010; J3490; Q9967